=== PATIENT | female | born 1955 | race Caucasian/White ===

== ENCOUNTER 2016-07-02 13:30 | Inpatient (IN) | payer OTHER ==
[2016-07-02] MEDS ORDERED: ATIVAN IM ONE (13:44)
[2016-07-02] MEDS ORDERED: BENADRYL IM ONE (13:44)
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
[2016-07-02] MEDS ORDERED: HALDOL ONE (14:27)
[2016-07-02] MEDS ORDERED: HALDOL IM ONE (14:30)
[2016-07-02 14:50] LABS: MANUAL DIFF NEEDED? NO
[2016-07-02 14:55] LABS: BASO% 0.2 % (0.0-0.8); EOS# 0.01 X1000 (0.0-0.7); EOS% 0.2 % (0.0-10.0); HEMATOCRIT 42.1 % (37.0-47.0); HEMOGLOBIN 15.2 g/dL (12.0-16.0); IMM GRAN# 0.01 X1000 (0.0-0.04); IMM GRAN% 0.2 % (0.0-0.5); LYMPH# 1.04 X1000 (1.2-3.4); LYMPH% 19.6 % (20.5-51.1); MCHC 36.1 g/dL (33-37); MCV 85.9 FL (81-99); MONO# 0.47 X1000 (0.11-0.59); MONO% 8.9 % (1.7-9.3); NEUT% 70.9 % (42.2-75.2); PLT 156 X1000 (130-400)
[2016-07-02 15:19] LABS: AGAP 12; ALBUMIN 4.2 g/dL (3.5-5.0); ALKALINE PHOSPHATASE 119 U/L (32-104); BUN 3 mg/dL (8-22); CALCIUM 9.5 mg/dL (8.8-10.2); CHLORIDE 93 mmol/L (98-107); CK PROFILE 117 U/L (24-173); COSMO 253; GOT 42 U/L (10-30); GPT 39 U/L (10-36); POTASSIUM 3.4 mmol/L (3.5-5.1); SODIUM 127 mmol/L (136-145); TCO2 22 mmol/L (25-35); TOTAL PROTEIN 6.3 g/dL (6.3-8.3)
[2016-07-02 15:23] LABS: INR 0.99 (0.86-1.15); PROTIME 13.4 Seconds (12.1-15.5)
[2016-07-02 15:24] LABS: PTT PL 26.9 Seconds (22.6-43.9)
--- NOTE | 2016-07-02 15:51 | Diag Imaging Result Document ---
PROCEDURE NAME: HEAD W/O CONTRAST - 07/02/2016 CT HEAD WITHOUT CONTRAST: COMPARISON: None available. FINDINGS: There is extensive patchy low attenuation in the periventricular and subcortical white matter suggesting advanced microangiopathy. There is extensive right temporal lobe encephalomalacia. There is no definite acute infarct given the limited sensitivity of CT versus MRI. There is no discrete intracranial mass, mass effect, or intracranial hemorrhage. Surrounding soft tissues and bony structures are essentially unremarkable. IMPRESSION: Extensive chronic changes as described, but no definite acute intracranial pathology.
--- NOTE | 2016-07-02 16:12 | Diag Imaging Result Document ---
PROCEDURE NAME: CHEST-1 VIEW - 07/02/2016 SINGLE FRONTAL RADIOGRAPH THE GRAPH OF THE CHEST: COMPARISON: 07/12/2014. FINDINGS: The lungs are hyperinflated, stable. Increased interstitial markings, especially on the right at the upper lung zones are stable suggesting fibrosis. The lungs are grossly clear otherwise. There is no definite pleural fluid collection. Cardiac silhouette is probably within normal limits accounting for magnification due to AP technique. IMPRESSION: Stable COPD changes and right lung fibrosis as described.
[2016-07-02 17:27] LABS: URINE CULTURE PL NEEDED? NO; URINE SOURCE CLEAN CATCH
[2016-07-02 17:40] LABS: UR AMPHETAMINES QUAL NONE DETECTED (NONE DETECT); UR BARBITUATES QUAL NONE DETECTED (NONE DETECT); UR BENZODIAZEPIN QUAL NONE DETECTED (NONE DETECT); UR CANNABINOIDS QUAL NONE DETECTED (NONE DETECT); UR COCAINE QUAL NONE DETECTED (NONE DETECT); UR MDMA QUAL NONE DETECTED (NONE DETECT); UR METHADONE QUAL NONE DETECTED (NONE DETECT); UR METHAMPHETAMINE QUAL NONE DETECTED (NONE DETECT); UR OPIATES QUAL NONE DETECTED (NONE DETECT); UR OXYCODONE QUAL NONE DETECTED (NONE DETECT); UR PCP QUAL NONE DETECTED (NONE DETECT); UR TCA QUAL NONE DETECTED (NONE DETECT)
[2016-07-02 17:42] LABS: BILIRUBIN URINE NEGATIVE (NEGATIVE); BLOOD URINE NEGATIVE (NEGATIVE); CLARITY CLEAR (CLEAR); COLOR YELLOW; GLUCOSE URINE NEGATIVE (NEGATIVE); LEUKOCYTES URINE NEGATIVE (NEGATIVE); NITRITE URINE NEGATIVE (NEGATIVE); PROTEIN URINE NEGATIVE (NEGATIVE); SP GRAVITY URINE 1.005; UROBILINOGEN URINE NORMAL
[2016-07-02 17:52] LABS: URINE CAST NONE SEEN /LPF; URINE CRYSTAL NONE SEEN /HPF; URINE EPITHELIAL CELLS <10 /HPF (<10)
[2016-07-02] MEDS ORDERED: LOPRESSOR IV ONE (18:05)
[2016-07-02] MEDS ORDERED: APRESOLINE IV ONE (20:34)
[2016-07-02] MEDS ORDERED: FLUZONE QUAD 2016-2017 SYRINGE IM ONE (22:19)
[2016-07-02] MEDS ORDERED: PNEUMOVAX 23 IM ONE (22:21)
[2016-07-02] MEDS ORDERED: ZOFRAN IV PRN (23:45)
[2016-07-02] MEDS ORDERED: TYLENOL PO PRN (23:45)
[2016-07-03] MEDS: NS 1,000 ML IV SCH ×2 (00:24→16:09)
[2016-07-03 06:31] LABS: HEMATOCRIT 40.9 % (37.0-47.0); HEMOGLOBIN 14.7 g/dL (12.0-16.0); MCH 31.2 PG (27-31); MCHC 35.9 g/dL (33-37); MCV 86.8 FL (81-99); MPV 11.5 FL (7.4-10.4); RBC 4.71 XMIL (4.2-5.4)
[2016-07-03 06:55] LABS: AGAP 12; ALBUMIN 3.8 g/dL (3.5-5.0); ALKALINE PHOSPHATASE 115 U/L (32-104); BUN 3 mg/dL (8-22); CALCIUM 9.2 mg/dL (8.8-10.2); CHLORIDE 96 mmol/L (98-107); COSMO 256; GOT 45 U/L (10-30); GPT 42 U/L (10-36); POTASSIUM 3.5 mmol/L (3.5-5.1); SODIUM 129 mmol/L (136-145); TCO2 21 mmol/L (25-35); TOTAL PROTEIN 5.8 g/dL (6.3-8.3)
[2016-07-03] MEDS: ATIVAN IV PRN (12:54)
--- NOTE | 2016-07-03 15:35 | Diag Imaging Result Document ---
PROCEDURE NAME: MRI BRAIN W/O CONTRAST - 07/03/2016 MRI BRAIN WITHOUT CONTRAST: TECHNIQUE: Exam consists of T2-weighted fast spin echo images and inverted recovery images. According to the technologist, the exam could not be completed because the patient was unable or unwilling to cooperate. COMPARISON: No comparison MRI brain is available. Exam is correlated with the 07/02/2016 CT head. FINDINGS: There is an area of restricted diffusion which involves the temporal lobe, including the sylvian cortex, and part of the nearby parietal lobe on the left. This is compatible with acute infarct. There is encephalomalacia at the right temporal lobe and adjacent right occipital lobe as seen on the recent CT, compatible with older (chronic or late subacute) infarct. 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 MTDD
[2016-07-03] MEDS: STERILE WATER INJ. INJ PRN (16:09)
[2016-07-03] MEDS: GEODON IM PRN (16:09)
[2016-07-03] MEDS: ASPIRIN PR SCH (18:05)
--- NOTE | 2016-07-03 19:05 | HISTORY AND PHYSICAL ---
CHIEF COMPLAINT: Altered mentation. HISTORY OF PRESENT ILLNESS: This is a 61-year-old female with history of significant dementia presenting with an acute change in behavior. She was having difficulty walking, leaning towards the left. She had overdosed on Xanax in the past I do not think intentionally just because of memory loss and taking too much medication that she forgot she had already taken. When she came the ER she was very agitated. She is ambulatory. Her neurological exam was nonfocal. This apparently started earlier that days so by the time she was evaluated I think she was outside the window for tPA. Head CT, rest of her workup was really unremarkable but she was admitted for further treatment and management. PAST MEDICAL HISTORY: Dementia. No other significant issues. Information is gleaned from the chart and patient's daughter. I could not get any objective information from the patient herself. PAST SURGICAL HISTORY: I do not think she had any major contributors here. ALLERGIES: No known drug allergies. OTHER HISTORY: Smoker. She does smoke a pack a day. Reportedly has had CVAs in the past. Cervical cancer status post D and C and LEEP. She has had an MRSA infection of the lungs. FAMILY HISTORY: Unobtainable. SOCIAL HISTORY: Again, pack a day smoker. MEDICATIONS: None is listed. REVIEW OF SYSTEMS: Unobtainable. PHYSICAL EXAMINATION: VITAL SIGNS: Blood pressure was 168/102, heart rate 68, respiratory 17, temperature 98.2 degrees, 99% on room air. GENERAL: A well-developed female in no acute distress. HEENT: Head exam was normocephalic, atraumatic. Pupils equal, round, reactive to light. Extraocular movements were intact. Ear/nose/throat exam she had moist mucous membranes. NECK: Supple. CARDIOVASCULAR EXAM: Stable. PULMONARY: Bilateral breath sounds. Clear to auscultation. GI: Soft, nontender, nondistended. Bowel sounds are positive. EXTREMITIES: No clubbing or cyanosis. LYMPHATICS: No peripheral edema. NEUROLOGICAL: Nonfocal. LABORATORY DATA: Normal CBC, normal coagulations. She did have a low sodium 127. AST and ALT of 42, 39, platelets of 119,000. PROBLEM LIST: 1. Altered mental status secondary to transient ischemic attack versus cerebrovascular accident versus metabolic encephalopathy. We will continue screens. Family is very concerned for stroke. Apparently she has had a history of stroke previously. She has a nonfocal exam but she is not participating exam very much. She does have ataxia and some left-sided weakness so we will go ahead and pursue MRI when available. Continue hydration and monitor clinically. 2. Hyponatremia. Will continue normal saline supplementation, check urine electrolytes and follow. DISPOSITION: Pending improvement in the rest of her clinical status.
[2016-07-04] MEDS: LIPITOR PO SCH ×2 (03:27→20:00)
[2016-07-04] MEDS: NS 1,000 ML IV SCH ×3 (06:33→19:58)
--- NOTE | 2016-07-04 06:37 | EKG Report ---
Test Performed on : 07/04/2016 06:25:17 AM Test Reason : EKG changes; SVT Blood Pressure : / mmHG Vent. Rate : 105 BPM Atrial Rate : 105 BPM P-R Int : 144 ms QRS Dur : 072 ms QT Int : 360 ms P-R-T Axes : 071 067 071 degrees QTc Int : 475 ms Sinus tachycardia. Left ventricular hypertrophy with repolarization abnormality Abnormal ECG When compared with ECG of 13-JUL-2014 06:10, ST now depressed in Anterior leads Confirmed by Jono Varela MD ([id number]) on 07/08/2016 9:04:09 PM
[2016-07-04 06:54] LABS: HEMATOCRIT 44.1 % (37.0-47.0); HEMOGLOBIN 15.7 g/dL (12.0-16.0); MCH 30.9 PG (27-31); MCHC 35.6 g/dL (33-37); MCV 86.8 FL (81-99); MPV 11.3 FL (7.4-10.4); RBC 5.08 XMIL (4.2-5.4)
[2016-07-04 07:01] LABS: AGAP 16; BUN 3 mg/dL (8-22); CHLORIDE 98 mmol/L (98-107); COSMO 262; HDL 88 mg/dL (45-65); LDL 53 mg/dL; POTASSIUM 3.1 mmol/L (3.5-5.1); SODIUM 132 mmol/L (136-145); TCO2 18 mmol/L (25-35); TRIGLYCERIDES 52 mg/dL (35-135); VLDL 10 mg/dL
[2016-07-04] MEDS: GEODON IM PRN ×2 (07:43→22:13)
[2016-07-04] MEDS: STERILE WATER INJ. INJ PRN (07:43)
[2016-07-04] MEDS ORDERED: LABETALOL IV PRN (08:21)
[2016-07-04] MEDS ORDERED: LABETALOL IV ONE (08:21)
[2016-07-04] MEDS ORDERED: LABETALOL ONE (08:26)
[2016-07-04] MEDS ORDERED: CARDIZEM ONE (08:45)
[2016-07-04 09:00] LABS: BE -1.8 mmoll (-3.0-3.0); BLOOD TYPE ARTERIAL; METHB 1.5 % (0.0-1.5); O2(CT) 22.4 mL/dL (15.0-23.0); PCO2(98.6) 31 mmHg (35-45); PO2(98.6) 85 mmHg (60-100); SAMPLE BLOOD; SAO2 97.5 % (95.0-100.0); pH(98.6) 7.44 (7.35-7.45)
[2016-07-04] MEDS: CARDIZEM 100 MG/NS 100 ML IV SCH (09:25)
--- NOTE | 2016-07-04 09:25 | Diag Imaging Result Document ---
PROCEDURE NAME: CHEST-PORTABLE - 07/04/2016 SINGLE FRONTAL RADIOGRAPH OF THE CHEST: COMPARISON: 07/02/2016. FINDINGS: There is stable COPD change and fibrosis at the right upper lung zone. There has been interval development of a focal infiltrate at the medial right lung base suggesting developing pneumonia, most likely. No new consolidation is identified on the left. Cardiac silhouette is stable. IMPRESSION: Interval development of a focal infiltrate at the medial right lung base.
--- NOTE | 2016-07-04 09:42 | EKG Report ---
Test Performed on : 07/04/2016 08:40:59 AM Test Reason : cp Blood Pressure : / mmHG Vent. Rate : 138 BPM Atrial Rate : 153 BPM P-R Int : 000 ms QRS Dur : 092 ms QT Int : 342 ms P-R-T Axes : 000 080 -59 degrees QTc Int : 518 ms Atrial fibrillation. with rapid ventricular response. Minimal voltage criteria for LVH, may be normal variant ST & T wave abnormality, consider inferior ischemia Abnormal ECG When compared with ECG of 04-JUL-2016 06:25, (Unconfirmed) Atrial fibrillation. has replaced Sinus rhythm. ST now depressed in Inferior leads ST now depressed in Lateral leads Inverted T waves have replaced nonspecific T wave abnormality in Inferior leads T wave inversion now evident in Lateral leads Confirmed by Jono Varela MD ([id number]) on 07/08/2016 9:03:58 PM
[2016-07-04] MEDS: ASPIRIN PR SCH (10:30)
[2016-07-04 11:12] LABS: DRAW SITE R RADIAL; MODALITY CANNULA
[2016-07-04 11:13] LABS: ALLEN TEST YES
[2016-07-04] MEDS: POTASSIUM CHLORIDE 20 MEQ/SWI 100 ML IV SCH ×2 (11:31→13:50)
[2016-07-04] MEDS: FLAGYL 500 MG/NS 100 ML IV SCH ×2 (11:31→19:59)
--- NOTE | 2016-07-04 12:18 | PROGRESS NOTE ---
DATE: 07/04/2016 SUBJECTIVE: Patient resting quietly in bed. Telemetry showed this a.m. a rate change. She went from being in normal sinus rhythm in the 70s to being elevated in the 140s and 150s. Obtained an EKG that showed atrial fibrillation with RVR. OBJECTIVE: Vital signs: Temp 98.6, pulse 146, respirations 47, blood pressure 159/86, satting 95% on room air. General: This is a 61-year-old female who is lying in the bed. HEENT: Normocephalic, atraumatic. The pupils are equal, round and reactive to light. The extraocular movements are intact. Oropharynx and nares are clear. Neck: Supple. Lungs: Clear to auscultation bilaterally with equal lung expansion and chest wall movement. Heart: Irregular rate and rhythm. No murmurs, rubs, or gallops. Abdomen: Soft, nontender, nondistended. Bowel sounds are present in all 4 quadrants. Extremities: No clubbing, cyanosis, or edema. Neurological: Cranial nerves 2-12 appear grossly intact. LABORATORY DATA: White blood cell count of 12.95, hemoglobin 15.7, hematocrit 44.1, platelets 150. Sodium 132, potassium 3.1, chloride 98, CO2 of 18, BUN 3 with a creatinine of 0.4, glucose of 122. Triglycerides are 52, cholesterol 151. B12 of 553. IMAGING: Chest x-ray this a.m. showed interval development of a focal infiltrate at the medial right lung base. ASSESSMENT AND PLAN: 1. Atrial fibrillation with RVR, new onset. 2. Right lower lobe pneumonia. 3. Hypokalemia. 4. Hyponatremia. 5. Altered mental status most likely related to an acute temporoparietal infarct on the left. 6. Cerebrovascular accident, acute temporoparietal infarct on the left. PLAN: She was transferred to the intensive care unit, placed on a Cardizem drip. Prior to being transferred, she was given 20 mg of labetalol IV x1 and Cardizem 10 mg IV x1 with little change in her heart rate, so she was transferred back to the unit, placed on the Cardizem drip, normal saline at 75 mL/h. Will obtain a carotid ultrasound. We will do her carotid and echocardiogram in the a.m. We will place her on Levaquin 500 mg IV q.24 h., first dose this morning then will recheck CBC, CMP in the a.m. Attempted to notify family, no answer. I left a message for the patient's daughter to return my call so that I could inform them of these changes in her status. Awaiting that return phone call. Dictated by FRANCIE Mo for Josias Gonzales MD pt examined , agree with above, acute ischemic CVA, likely secondary to PAF, on cardizem and controlled, will need group home anitcoagulation, may have left atrial thrombus, I think the risk of further CVA is higher than risk of hemorrahgic conversion ; but will discuss cardiology and neurology and evaluate, further, we will do dvt prophylaxis , > 30 minute critical care time, afib with rvr, on iv cardizem JADE , MTDD
[2016-07-04] MEDS: LEVAQUIN 500 MG/D5W 100 ML IV SCH (12:30)
[2016-07-04] MEDS ORDERED: HEPARIN 25,000 UNITS/D5W 250 ML IV SCH (13:15)
[2016-07-04] MEDS: LOVENOX SUBQ SCH (14:35)
--- NOTE | 2016-07-04 15:08 | CONSULTATION ---
DATE OF CONSULTATION: 07/04/2016 REASON FOR CONSULTATION: Cardiology was consulted for atrial fibrillation. HISTORY OF PRESENT ILLNESS: Ms. Rodriguez is a 61-year-old lady with significant dementia. She was brought to the emergency room, was agitated, and she had a head CT and MRI done. Also she had difficulty walking and leaning towards the left as well. History could not be obtained from the patient. History was obtained from the chart and I talked to her son as well. PAST MEDICAL HISTORY: Dementia. No obvious other medical problems reported. She is a smoker, a pack of cigarettes a day. History of CVA in the past. REVIEW OF SYSTEMS: Could not be obtained. SOCIAL HISTORY: A pack of cigarettes daily. PHYSICAL EXAMINATION: Vital Signs: Blood pressure was 130/80. Cardiovascular: First and second heart sounds were heard. There was no S3 gallop. Respiratory: Expiratory wheeze. Abdomen: Soft, nontender. There was no guarding or rigidity. Bowel sounds were heard. Central nervous system: Could not be assessed. Detailed central nervous system examination not performed. LABORATORY EXAMINATION: WBC 12.9, hemoglobin 15.7, hematocrit 44, platelet count of 150,000. Sodium 132, potassium 3.1, BUN 3, creatinine 0.8. The patient is in atrial fibrillation. Cardiac enzymes negative. IMAGING: Brain MRI revealed acute temporoparietal infarct of the left side. Chest x-ray revealed focal infiltrate at the mid right base. ASSESSMENT AND PLAN: 1. Ms. Elayne Rodriguez is a 61-year-old lady with history of dementia, difficulty in walking, and altered mental status. Was noted to have acute cerebrovascular accident. 2. She also has elevated white count and pneumonia. 3. She was noted to be in atrial fibrillation and started on a Cardizem drip. Currently patient cannot swallow. She has paroxysmal atrial fibrillation that could be accounting for her embolic stroke. I would recommend anticoagulating patient when it is okayed with Neurology. Would recommend Eliquis 5 mg twice daily or Xarelto 20 mg a day. 4. We will get an echocardiogram to assess cardiac and valvular function. 5. For antibiotics, she is on antibiotics given her pneumonia. 6. Her potassium is 3.1. Would recommend repleting potassium. 7. Once she can take p.o. tablets we will change her from IV Cardizem to p.o. medication. 8. For dementia she is on Geodon. I have not made any other changes to her medication. Thank you for the consult.
--- NOTE | 2016-07-04 17:54 | EKG Report ---
Test Performed on : 07/04/2016 5:22:16 PM Test Reason : converted to SR from A Fib Blood Pressure : / mmHG Vent. Rate : 083 BPM Atrial Rate : 083 BPM P-R Int : 120 ms QRS Dur : 088 ms QT Int : 420 ms P-R-T Axes : 078 071 049 degrees QTc Int : 493 ms Sinus rhythm. with premature atrial complexes. Left ventricular hypertrophy with repolarization abnormality Prolonged QT Abnormal ECG When compared with ECG of 04-JUL-2016 17:19, (Unconfirmed) premature atrial complexes. are now present Unconfirmed Result
[2016-07-04] MEDS: ATIVAN IV PRN (18:07)
[2016-07-04] MEDS: CLINIMIX E 4.25%-5% SOLUTION 1,000 ML IV SCH (20:56)
[2016-07-04] MEDS ORDERED: APRESOLINE IV PRN (22:35)
[2016-07-04] MEDS ORDERED: MORPHINE IV PRN (22:35)
[2016-07-05] MEDS: ATIVAN IV PRN (00:21)
[2016-07-05] MEDS: FLAGYL 500 MG/NS 100 ML IV SCH ×3 (01:19→18:05)
[2016-07-05] MEDS: XOPENEX NEB INH PRN ×4 (03:29→19:18)
[2016-07-05 05:47] LABS: URINE SOURCE CATH
[2016-07-05 06:02] LABS: BILIRUBIN URINE NEGATIVE (NEGATIVE); BLOOD URINE 2+ (NEGATIVE); CLARITY CLEAR (CLEAR); COLOR YELLOW; LEUKOCYTES URINE 1+ (NEGATIVE); NITRITE URINE NEGATIVE (NEGATIVE); PROTEIN URINE TRACE mg/dL (NEGATIVE); SP GRAVITY URINE 1.015
[2016-07-05 06:05] LABS: URINE EPITHELIAL CELLS <10 /HPF (<10); URINE RBC <10 /HPF (<10); URINE WBC <10 /HPF (<10)
[2016-07-05 06:06] LABS: URINE CULTURE PL NEEDED? YES
[2016-07-05 06:07] LABS: MANUAL DIFF NEEDED? NO
[2016-07-05 06:17] LABS: UROBILINOGEN URINE 3+(8 mg/dL)
[2016-07-05 06:21] LABS: BASO% 0.2 % (0.0-0.8); HEMATOCRIT 42.9 % (37.0-47.0); HEMOGLOBIN 15.2 g/dL (12.0-16.0); IMM GRAN# 0.04 X1000 (0.0-0.04); IMM GRAN% 0.2 % (0.0-0.5); LYMPH# 0.87 X1000 (1.2-3.4); LYMPH% 5.2 % (20.5-51.1); MCH 30.8 PG (27-31); MCHC 35.4 g/dL (33-37); MCV 86.8 FL (81-99); MONO# 1.79 X1000 (0.11-0.59); MONO% 10.7 % (1.7-9.3); NEUT% 83.7 % (42.2-75.2); PLT 126 X1000 (130-400); RBC 4.94 XMIL (4.2-5.4)
[2016-07-05 06:39] LABS: AGAP 12; ALBUMIN 3.1 g/dL (3.5-5.0); ALKALINE PHOSPHATASE 101 U/L (32-104); BUN 8 mg/dL (8-22); CALCIUM 8.8 mg/dL (8.8-10.2); CHLORIDE 93 mmol/L (98-107); COSMO 251; GOT 15 U/L (10-30); GPT 22 U/L (10-36); SODIUM 124 mmol/L (136-145); TCO2 19 mmol/L (25-35); TOTAL PROTEIN 5.6 g/dL (6.3-8.3)
--- NOTE | 2016-07-05 08:46 | Diag Imaging Result Document ---
PROCEDURE NAME: HEAD W/O CONTRAST - 07/05/2016 CT HEAD WITHOUT CONTRAST: COMPARISON: 07/02/2016. FINDINGS: There is a large acute to early subacute infarct involving the left MCA distribution. It affects mainly the left temporal lobe and left frontal lobe. There is probably some involvement of the left parietal lobe as well. This cannot be seen on the previous CT. There is stable extensive encephalomalacia in the right temporal lobe MCA distribution. There is extensive white matter microangiopathy. There is no evidence of intracranial hemorrhage, mass, or significant mass effect. Surrounding soft tissues and bony structures are essentially unremarkable. IMPRESSION: 1. Interval development of a large left MCA distribution acute to early subacute infarct. 2. Other stable chronic changes as detailed above. 3. Not mentioned above, this infarct was also seen on a previous MRI dated 07/03. [facility]
[2016-07-05] MEDS ORDERED: TYLENOL PR PRN (10:42)
[2016-07-05] MEDS: CLINIMIX E 4.25%-5% SOLUTION 1,000 ML IV SCH ×2 (10:49→11:24)
[2016-07-05] MEDS: ASPIRIN PR SCH (10:49)
[2016-07-05] MEDS: NS 1,000 ML IV SCH ×2 (10:50→20:48)
[2016-07-05] MEDS ORDERED: APRESOLINE IV PRN (11:08)
[2016-07-05] MEDS: LEVAQUIN 500 MG/D5W 100 ML IV SCH (11:30)
[2016-07-05] MEDS: NICODERM PATCH TD PRN (11:40)
[2016-07-05] MEDS ORDERED: MAGNESIUM SULFATE 2 GM/S.W.I. 50 ML IV ONE (12:05)
--- NOTE | 2016-07-05 13:27 | Diag Imaging Result Document ---
PROCEDURE NAME: CHEST-PORTABLE - 07/05/2016 SINGLE FRONTAL RADIOGRAPH OF THE CHEST: COMPARISON: 07/04/2016. FINDINGS: There is interval worsening of the infiltrate at the right lung base. No new consolidations are identified otherwise. Cardiac silhouette is stable. IMPRESSION: Interval modest worsening of the right basilar infiltrate.
[2016-07-05] MEDS: PROTONIX IV SCH (14:38)
[2016-07-05] MEDS: POTASSIUM CHLORIDE 20 MEQ/SWI 100 ML IV SCH ×2 (14:46→16:50)
[2016-07-05] MEDS: LOVENOX SUBQ SCH (14:47)
[2016-07-05] MEDS: NEO-SYNEPHRINE 50 MG in NS 250 ML IV SCH (15:53)
--- NOTE | 2016-07-05 20:27 | Extremity Venous Study ---
PROCEDURE NAME: Carotid Ultrasound - 07/04/2016 CAROTID DOPPLER: COMPARISON: None available. FINDINGS: RIGHT: There is intimal thickening throughout the right carotid system with fairly extensive atherosclerotic patchy plaque with calcification. This is most significant at the carotid bulb and proximal ICA. The peak systolic velocity measures 104, 89, 99, 74, 75, and 87 cm/sec at the CCA, bifurcation, proximal ICA, mid ICA, distal ICA, and ECA, respectively. There is antegrade flow in the vertebral artery. The carotid ratio is 0.95. LEFT: There is extensive intimal thickening and patchy atherosclerotic disease throughout the entire left carotid system with multiple regions of calcification. It is probably worst at the proximal ICA. The peak systolic velocity measures 109, 100, 115, 144, 69, and 105 cm/sec at the CCA, bifurcation, proximal ICA, mid ICA, distal ICA, and ECA, respectively. There is antegrade flow in the vertebral artery. The carotid ratio is 1.33. IMPRESSION: Extensive atherosclerotic disease throughout both carotid systems on grayscale images. However, by Doppler, there are elevated velocities only in the proximal ICA and mid ICA suggesting a stenosis of between 40 and 59%. Consider a CTA of the neck for more accurate estimation of stenosis if not contraindicated. [facility]
[2016-07-05] MEDS: LIPITOR PO SCH (20:36)
[2016-07-06] MEDS: POTASSIUM CHLORIDE 20 MEQ/SWI 100 ML IV SCH ×2 (00:16→02:08)
[2016-07-06] MEDS: FLAGYL 500 MG/NS 100 ML IV SCH ×3 (01:48→17:31)
[2016-07-06] MEDS: CLINIMIX E 4.25%-5% SOLUTION 1,000 ML IV SCH ×3 (03:14→21:23)
[2016-07-06 05:14] LABS: BE -3.1 mmoll (-3.0-3.0); BLOOD TYPE ARTERIAL; DRAW SITE R RADIAL; METHB 1.5 % (0.0-1.5); O2(CT) 20.5 mL/dL (15.0-23.0); PCO2(98.6) 30 mmHg (35-45); PO2(98.6) 80 mmHg (60-100); SAMPLE BLOOD; SAO2 97.1 % (95.0-100.0); THB 15.6 g/dL (11.5-17.4); pH(98.6) 7.43 (7.35-7.45)
[2016-07-06 05:18] LABS: ALLEN TEST YES; MODALITY CANNULA
[2016-07-06 06:24] LABS: AGAP 10; BUN 8 mg/dL (8-22); CALCIUM 8.6 mg/dL (8.8-10.2); CHLORIDE 98 mmol/L (98-107); COSMO 253; POTASSIUM 3.9 mmol/L (3.5-5.1); SODIUM 126 mmol/L (136-145); TCO2 18 mmol/L (25-35)
[2016-07-06 06:29] LABS: HEMATOCRIT 43.3 % (37.0-47.0); HEMOGLOBIN 15.2 g/dL (12.0-16.0); MCH 30.3 PG (27-31); MCHC 35.1 g/dL (33-37); MCV 86.3 FL (81-99); MPV 11.8 FL (7.4-10.4); RBC 5.02 XMIL (4.2-5.4)
--- NOTE | 2016-07-06 06:50 | Diag Imaging Result Document ---
PROCEDURE NAME: CHEST-PORTABLE - 07/06/2016 PORTABLE CHEST: COMPARISON: Compared to 07/05/2016. FINDINGS: The lungs are well expanded. The heart is not enlarged. Minimal improvement in the right basilar infiltrate. Increased markings in the right apex may be fibrosis. No pleural effusions identified. IMPRESSION: Interval improvement in the right basilar infiltrate.
[2016-07-06] MEDS: XOPENEX NEB INH PRN ×2 (08:33→16:23)
--- NOTE | 2016-07-06 09:28 | CONSULTATION ---
DATE OF CONSULTATION: 07/06/2016 HISTORY: Ms. Rodriguez is 61 years old, admitted with 2nd stroke, obtunded over the weekend and brighter today. She is not able to provide history because of inattention and dysphasia. History is taken from review of the hospital record and telephone discussion with Dr. Gonzales yesterday. She had a history of stroke in the past causing left hemianopia. Family had reported no other definite deficit remaining after that event. Previous hospital notes describe her as being demented at baseline. I do not see history of head injury or seizure in recent notes but previous notes indicate history of seizure. She apparently had abrupt onset of neurologic change several days ago. She was admitted to the hospital three days ago. She had some unsteady gait and trouble with communication. Initial noncontrast CT showed old right hemisphere encephalomalacia. Subsequent brain MRI showed evidence of acute left occipitoparietal infarction in addition to the old right hemisphere changes. When she became obtunded over the weekend, noncontrast CT showed no evidence of bleeding and did show the acute left hemisphere infarction. Labs showed hyponatremia. WBC count has been elevated. She had recent fever and chest x-ray evidence of infiltrate. Computer medicine records show she had a dose of lorazepam and morphine within a day or so of her becoming obtunded. There is mention in previous notes that she may have used benzodiazepines in the past, so I doubt the single lorazepam dose caused much alteration of consciousness. I do not know about previous opiate use. Urine drug screen was all negative this admission. She was not taking home medicines, by report. She continues to smoke cigarettes. I believe there is history of ethanol use in the past but not certain about recent use. She became quite obtunded over the weekend but later in the day yesterday, was less so. This morning, she seems to be awake. On exam, she is supine, moving all limbs, moving the left leg more than the right. During my time at the bedside, moving the right arm a little more vigorously than the left. She was awake and seemed alert but not attentive. She did not follow commands. She did not communicate. She did not fix her gaze on me or attempt to respond verbally. There was some mumbling but no understandable words. She has a left gaze preference but full lateral eye movement with passive head turning. She resists passive eye opening of the left eye more vigorously than the right. Corneal reflexes are present bilaterally. Both pupils are round and react to bright light. Head is unremarkable. Neck is supple without meningismus. Plantar response is extensor bilaterally. IMPRESSION: 1. Recent dominant left hemisphere infarction, likely presentation with dysphasia and very little motor deficit. She has risk factors including hypertension, cigarette smoking, possibly dyslipidemia reported in old notes. Big risk factor also would be previous stroke. 2. Previous nondominant right hemisphere infarction with residual hemianopia and apparently no significant motor deficit. 3. Reported cognitive impairment at baseline. This would predispose her to encephalopathy with any toxic or metabolic disturbance. 4. I do not see evidence of increased intracranial pressure. Yesterday, there was concern for cerebral edema, mass effect, brainstem compression but there is no evidence of brainstem dysfunction on clinical examination now and she has recovered her alertness. It is too soon to try to establish prognosis but I am concerned she may have residual global dysphasia and she may now be cortically blind bilaterally. Time will tell. 5. I do not have any urgent suggestion. I hope she will continue to improve clinically with attention to her metabolic problems and pneumonia. I would maintain blood pressure as you are doing. We might need followup imaging later, but that is not urgent. There is reported history of seizure in the past and, if that history is accurate, we might consider electroencephalogram, particularly if she has more altered consciousness or fluctuating awareness. Thanks for asking me to see Ms. Rodriguez. [facility]
[2016-07-06] MEDS: CARDIZEM 100 MG/NS 100 ML IV SCH ×2 (10:12→16:10)
[2016-07-06] MEDS: ASPIRIN PR SCH (10:12)
[2016-07-06] MEDS: NS 1,000 ML IV SCH ×2 (10:16→21:24)
[2016-07-06] MEDS: PROTONIX IV SCH (12:12)
[2016-07-06] MEDS: LEVAQUIN 500 MG/D5W 100 ML IV SCH (12:15)
[2016-07-06] MEDS: LANOXIN IV SCH ×2 (12:16→17:31)
[2016-07-06] MEDS: LOVENOX SUBQ SCH (13:30)
--- NOTE | 2016-07-06 15:15 | ECHO REPORT ---
ORDER DATE: 07/04/2016 ECHOCARDIOGRAPHIC MEASUREMENTS: 1. Interventricular septum 0.7. Left ventricular posterior wall 0.7. Diastolic diameter 5.1. Left atrium 3.6. Aorta 3.1. 2. Mitral valve was normal. 3. Tricuspid valve was normal. 4. Aortic valve leaflets are trileaflet. 5. Pulmonic valve was normal. 6. Normal left ventricular cavity size. Estimated ejection fraction of 65%. 7. There is borderline left atrial enlargement. 8. There is trace to mild mitral regurgitation. Trace tricuspid regurgitation. Peak velocity across the tricuspid valve was 2.6 m/sec. Pulmonary artery systolic pressure of 37 mmHg. There is no aortic stenosis or regurgitation by Doppler studies. 9. There is no pericardial effusion or obvious intracardiac mass or thrombus seen.
--- NOTE | 2016-07-06 18:07 | PROGRESS NOTE ---
DATE: 07/06/2016 CHIEF COMPLAINT: Weakness of the right side of the body, unable to talk, and irregular heartbeat. SUBJECTIVE: Ms. Jennifer arnold. She is awake. Her gaze is shifted to the left. She is trying to climb out of bed moving her left arm and leg. She does not really follow commands. OBJECTIVE: Vital signs: Today blood pressure is 175/80, temperature 99.1, pulse 86, it has been fluctuating up to 115, respirations 20. General: She does not follow commands. She moves the left side. Gaze shifted to the left. Chest: Fairly clear to auscultation and percussion. Cardiovascular: Heart sounds are irregularly irregular. Abdomen: Soft. Extremities: Decreased pulses. There is weakness on the right side of her body. LABORATORY DATA: White count 13,000, hemoglobin 15.2, hematocrit 43.3. Sodium 126, potassium 3.9, BUN 8, creatinine 0.3. IMPRESSION: 1. Patient who has suffered a large left middle cerebral artery stroke. 2. Paroxysmal atrial fibrillation. 3. History of dementia. RECOMMENDATIONS: At this point in time, the patient will continue present doses of IV digoxin and diltiazem. Her prognosis is really not that good because of the type of stroke that she has had. We will follow her along. Thank you for the opportunity to participate in her evaluation.
[2016-07-06] MEDS: LIPITOR PO SCH (21:24)
[2016-07-07] MEDS: FLAGYL 500 MG/NS 100 ML IV SCH ×3 (01:43→20:43)
[2016-07-07] MEDS: NEO-SYNEPHRINE 50 MG in NS 250 ML IV SCH (02:20)
[2016-07-07] MEDS: CLINIMIX E 4.25%-5% SOLUTION 1,000 ML IV SCH (02:52)
[2016-07-07 06:10] LABS: HEMATOCRIT 45.9 % (37.0-47.0); HEMOGLOBIN 16.2 g/dL (12.0-16.0); MCH 30.3 PG (27-31); MCHC 35.3 g/dL (33-37); MPV 11.6 FL (7.4-10.4); RBC 5.34 XMIL (4.2-5.4)
[2016-07-07 07:45] LABS: AGAP 14; BUN 7 mg/dL (8-22); CALCIUM 9.1 mg/dL (8.8-10.2); CHLORIDE 93 mmol/L (98-107); COSMO 252; MAGNESIUM 1.6 mg/dL (1.5-2.7); POTASSIUM 3.3 mmol/L (3.5-5.1); SODIUM 126 mmol/L (136-145); TCO2 20 mmol/L (25-35)
[2016-07-07] MEDS: XOPENEX NEB INH PRN (11:11)
[2016-07-07] MEDS: ASPIRIN PR SCH (11:20)
[2016-07-07] MEDS: NS 1,000 ML IV SCH (11:21)
[2016-07-07] MEDS: PROTONIX IV SCH (11:23)
[2016-07-07] MEDS: NICODERM PATCH TD PRN (11:23)
[2016-07-07] MEDS: LEVAQUIN 500 MG/D5W 100 ML IV SCH (11:23)
--- NOTE | 2016-07-07 13:13 | PROGRESS NOTE ---
DATE: 07/07/2016 SUBJECTIVE: No current family present. The patient is nonverbal. The staff denies any new issues. OBJECTIVE: Vital Signs: Temperature 98, pulse 64, respiratory rate 15, BP 193/100 to 125/64. General: Patient is lying in bed. She is in no distress. She does arouse to stimuli but does not follow commands. Speech is garbled. Cardiovascular: Irregular rhythm, rate controlled. Chest: Clear. Abdomen: Soft. Extremities: She is noted to be more weak on her right side. LABORATORY DATA: WBCs 11.5, sodium 126, potassium 3.3. ASSESSMENT: 1. Hypokalemia, replaced. 2. Mild leukocytosis, stable. 3. Large left middle cerebral artery stroke. 4. Paroxysmal atrial fibrillation. 5. Known dementia. 6. Hypotension. Patient continues to require Luis Enrique-Synephrine at night and is able to wean off during the day. PLAN: We will continue as noted. IV digoxin. Her IV Cardizem has to be turned off at night, because she develops low blood pressure has to go back on Luis Enrique-Synephrine. However, during the day, her blood pressure rises, and she is back on IV Cardizem. We will continue to follow and, therefore, will remain in the ICU.
[2016-07-07] MEDS: LOVENOX SUBQ SCH (13:30)
[2016-07-07] MEDS: LIPITOR PO SCH (20:47)
[2016-07-08] MEDS: NS 1,000 ML IV SCH ×2 (00:45→13:20)
[2016-07-08] MEDS: FLAGYL 500 MG/NS 100 ML IV SCH ×3 (02:30→17:19)
[2016-07-08] MEDS ORDERED: KLOR-CON PO ONE (06:19)
[2016-07-08] MEDS: CLINIMIX E 4.25%-5% SOLUTION 1,000 ML IV SCH ×2 (07:19→20:45)
[2016-07-08] MEDS: ASPIRIN PR SCH (09:19)
[2016-07-08] MEDS: ATIVAN IV PRN ×2 (10:47→17:25)
[2016-07-08] MEDS: LEVAQUIN 500 MG/D5W 100 ML IV SCH (10:47)
--- NOTE | 2016-07-08 11:08 | PROGRESS NOTE ---
DATE: 07/08/2016 SUBJECTIVE: Patient without new complaints. She is a little bit more awake, alert. She was trying to get out of bed yesterday. She is easily agitated and frustrated. OBJECTIVE: Vital Signs: Temperature 97, pulse 72, 137. Respiratory rate 14, blood pressure 177/98. Saturating 96% percent on 3 L. General: Patient is a well-developed female who is currently in no respiratory distress. She does not follow commands well although she is starting to attempt to follow some commands. HEENT: Normocephalic. Neck: Supple. CV: Irregular rate and irregular rhythm. Chest: Relatively clear. Abdomen: Soft. ASSESSMENT: 1. Hypertension. The patient's blood pressure is still noted to drop at night and she has to be on Luis Enrique-Synephrine although decreasing doses during the day. Her blood pressure elevates as does her heart rate when she becomes the least bit excitable and she has to start back on Cardizem. 2. Paroxysmal atrial fibrillation. 3. Dementia. 4. Recent large cerebrovascular accident in the left middle cerebral artery. 5. Hypokalemia. PLAN: We will continue patient on her current medications. We will continue physical therapy. Continue to follow her hyponatremia as well as hypokalemia and further orders as needed. She certainly will need rehab. Unfortunately, she continues to require ICU admission at this point.
[2016-07-08] MEDS: PROTONIX IV SCH (11:54)
[2016-07-08] MEDS: SODIUM CHLORIDE 0.9% INJ SCH (11:54)
[2016-07-08] MEDS: NICODERM PATCH TD PRN (13:19)
[2016-07-08] MEDS: CARDIZEM 100 MG/NS 100 ML IV SCH (13:20)
[2016-07-08] MEDS: LOVENOX SUBQ SCH (13:20)
[2016-07-08 17:24] LABS: BILIRUBIN URINE NEGATIVE (NEGATIVE); BLOOD URINE 4+ (NEGATIVE); CLARITY SL. CLOUDY (CLEAR); COLOR YELLOW; GLUCOSE URINE NEGATIVE (NEGATIVE); LEUKOCYTES URINE 1+ (NEGATIVE); NITRITE URINE NEGATIVE (NEGATIVE); PROTEIN URINE 1+(30 mg/dL) mg/dL (NEGATIVE); SP GRAVITY URINE 1.015; UROBILINOGEN URINE NORMAL
[2016-07-08 17:29] LABS: URINE CULTURE PL NEEDED? YES; URINE EPITHELIAL CELLS <10 /HPF (<10); URINE RBC TNTC /HPF (<10)
[2016-07-08 17:30] LABS: URINE SOURCE CATH
[2016-07-08] MEDS: LIPITOR PO SCH (20:58)
[2016-07-09] MEDS: NS 1,000 ML IV SCH ×3 (01:50→21:46)
[2016-07-09] MEDS: FLAGYL 500 MG/NS 100 ML IV SCH ×3 (01:50→17:36)
[2016-07-09 07:07] LABS: HEMATOCRIT 44.9 % (37.0-47.0); HEMOGLOBIN 16.1 g/dL (12.0-16.0); MCH 30.7 PG (27-31); MCHC 35.9 g/dL (33-37); MCV 85.7 FL (81-99); RBC 5.24 XMIL (4.2-5.4)
[2016-07-09 07:34] LABS: AGAP 16; ALBUMIN 3.1 g/dL (3.5-5.0); ALKALINE PHOSPHATASE 75 U/L (32-104); BUN 13 mg/dL (8-22); CALCIUM 9.1 mg/dL (8.8-10.2); CHLORIDE 98 mmol/L (98-107); COSMO 265; GOT 19 U/L (10-30); GPT 14 U/L (10-36); MAGNESIUM 1.7 mg/dL (1.5-2.7); SODIUM 132 mmol/L (136-145); TCO2 19 mmol/L (25-35); TOTAL PROTEIN 5.5 g/dL (6.3-8.3)
[2016-07-09] MEDS ORDERED: POTASSIUM CHLORIDE 20% LIQUID PO ONE (07:37)
--- NOTE | 2016-07-09 09:26 | PROGRESS NOTE ---
DATE: 07/09/2016 SUBJECTIVE: No new complaints. No family present. The nurses denied any new issues. Notes that she is easily agitated. She is nonverbal. PHYSICAL EXAMINATION: Vital Signs: Temperature 98, pulse 86-120, respiratory rate 20-24, BP 91/64 to 169/99, saturation 100% on 3 L. General: The patient is a well-developed female who is currently in no respiratory distress. She is awake, alert. Does not follow commands. Does not answer questions. HEENT: Normocephalic. Neck: Supple. CV: Irregular rate, irregular rhythm. Chest: Relatively clear. Abdomen: Soft. Extremities: No edema. Neurologic: Patient does not follow commands. She mumbles but does not have intelligible speech. She is noted to move her left upper and lower extremity quite well but minimal movement of her right. ASSESSMENT: 1. Atrial fibrillation. Continue Cardizem. 2. Hypertension. The patient's blood pressures are continuing to improve. She no longer required treatment for hypotension last night. She is on Cardizem still for her atrial fibrillation. We will continue physical therapy, replace her potassium, and follow.
[2016-07-09] MEDS: ASPIRIN PR SCH (10:07)
[2016-07-09] MEDS: ATIVAN IV PRN (10:44)
[2016-07-09] MEDS: PROTONIX IV SCH (12:18)
[2016-07-09] MEDS: SODIUM CHLORIDE 0.9% INJ SCH (12:18)
[2016-07-09] MEDS: GEODON IM PRN (12:19)
[2016-07-09] MEDS: LEVAQUIN 500 MG/D5W 100 ML IV SCH (12:19)
[2016-07-09] MEDS: LOVENOX SUBQ SCH (12:31)
--- NOTE | 2016-07-09 13:54 | PROGRESS NOTE ---
DATE: 07/09/2016 CHIEF COMPLAINT: Weakness of the right side of the body, aphasia, irregular heartbeat. SUBJECTIVE: Mrs. Rodriguez remains aphasic. Her heart rate has been somewhat erratic, difficult to control. Her blood pressure has also been bouncing up and down. She has been put back on Cardizem IV at rate of 15, and she is being given IV hydralazine. OBJECTIVE: Vital signs: Right now, her blood pressure is 133/75, pulse 90, respirations 14, temperature 97.6. General: She is awake, alert. She mumbles. She moves the left side of her body, not the right. HEENT: Unremarkable. Chest: Symmetrical breath sounds. Cardiovascular: Heart sounds are irregularly irregular. No gallop or murmur. Abdomen: Nontender. No hepatomegaly. Extremities: Extremities show no edema. Neurological exam: She has paralysis of the right side and aphasia. LABORATORY: Blood work: Hemoglobin is 16.1, hematocrit 44.9, white count 6100. Sodium 132, potassium 3.0, BUN 13, creatinine 0.4. Her albumin is 3.1. She has not been able to swallow potassium pill. IMPRESSION: 1. Patient who has suffered what appears to be a very significant left middle cerebral artery stroke. 2. Paroxysmal atrial fibrillation. 3. Hypokalemia, hyponatremia. 4. History of dementia. RECOMMENDATIONS: We will add digoxin to her regimen. We will give her some potassium replacement IV. Further intervention will depend on her clinical course. Thank you for the opportunity to participate in her evaluation. Best regards.
[2016-07-09] MEDS ORDERED: POTASSIUM CHLORIDE 60 MEQ in NS 500 ML IV ONE (14:00)
[2016-07-09] MEDS: CLINIMIX E 4.25%-5% SOLUTION 1,000 ML IV SCH (16:53)
[2016-07-09] MEDS: LANOXIN IV SCH ×2 (17:35→23:29)
[2016-07-09] MEDS: XOPENEX NEB INH PRN (19:35)
[2016-07-09] MEDS: LIPITOR PO SCH (20:17)
[2016-07-10] MEDS: FLAGYL 500 MG/NS 100 ML IV SCH ×3 (02:20→19:43)
[2016-07-10] MEDS: LANOXIN IV SCH (05:26)
[2016-07-10 07:19] LABS: HEMATOCRIT 43.9 % (37.0-47.0); HEMOGLOBIN 15.4 g/dL (12.0-16.0); MCH 30.7 PG (27-31); MCHC 35.1 g/dL (33-37); MCV 87.6 FL (81-99); MPV 10.2 FL (7.4-10.4); RBC 5.01 XMIL (4.2-5.4)
[2016-07-10 08:00] LABS: AGAP 14; ALBUMIN 2.7 g/dL (3.5-5.0); ALKALINE PHOSPHATASE 64 U/L (32-104); BUN 9 mg/dL (8-22); CALCIUM 8.9 mg/dL (8.8-10.2); CHLORIDE 102 mmol/L (98-107); COSMO 270; GOT 22 U/L (10-30); GPT 12 U/L (10-36); POTASSIUM 3.6 mmol/L (3.5-5.1); SODIUM 135 mmol/L (136-145); TCO2 19 mmol/L (25-35); TOTAL PROTEIN 5.1 g/dL (6.3-8.3)
[2016-07-10] MEDS: XOPENEX NEB INH PRN ×2 (08:19→20:14)
--- NOTE | 2016-07-10 09:12 | PROGRESS NOTE ---
DATE: 07/10/2016 SUBJECTIVE: The patient unfortunately has no true purposeful movement of her right side. She does have some movement of her left. She attempts to talk at times but makes no intelligible words. Does not follow commands. The nurses note no new issues. She is still having issues with her heart rate. OBJECTIVE: Vital Signs: Temperature 97, pulse 112-124, respiratory 18, BP 173/95, sat 100% on 2 L. General: The patient is a well-developed female who appears her stated age of 61. Unfortunately, she is nonverbal, does not follow commands. HEENT: Normocephalic. Neck: Supple. Cardiovascular: Irregular rate, irregular rhythm. Chest: Relatively clear. Abdomen: Soft. DIAGNOSTIC DATA: CBC normal. CMP normal. Albumin 2.7. ASSESSMENT/PLAN: 1. Moderate protein calorie malnutrition. 2. Urinary tract infection. Urine culture still pending. Currently on Levaquin and Flagyl. 3. Acute cerebrovascular accident. Unfortunately is not improving. 4. Atrial fibrillation with rapid ventricular response. Dr. Combs saw the patient in consultation yesterday and added digoxin. She continues on a Cardizem drip. 5. Unfortunately patient is not tolerating p.o. at this point. Therefore, we will continue her in the ICU and continue IV medications. Further orders as needed.
[2016-07-10] MEDS: NS 1,000 ML IV SCH ×2 (11:08→23:48)
[2016-07-10] MEDS: PROTONIX IV SCH (11:09)
[2016-07-10] MEDS: SODIUM CHLORIDE 0.9% INJ SCH (11:09)
[2016-07-10] MEDS: LEVAQUIN 500 MG/D5W 100 ML IV SCH (11:09)
[2016-07-10] MEDS: CLINIMIX E 4.25%-5% SOLUTION 1,000 ML IV SCH (11:09)
[2016-07-10] MEDS: ASPIRIN PR SCH (11:10)
[2016-07-10] MEDS ORDERED: LANOXIN IV ONE (13:30)
[2016-07-10] MEDS: ATIVAN IV PRN (13:47)
[2016-07-10] MEDS: LOVENOX SUBQ SCH (13:52)
[2016-07-10] MEDS: GEODON IM PRN (15:40)
[2016-07-10] MEDS: CARDIZEM 100 MG/NS 100 ML IV SCH (15:58)
[2016-07-10] MEDS: LIPITOR PO SCH (23:47)
[2016-07-11] MEDS: NS 1,000 ML IV SCH ×2 (00:26→10:24)
[2016-07-11] MEDS: FLAGYL 500 MG/NS 100 ML IV SCH ×3 (03:52→19:48)
[2016-07-11] MEDS: LANOXIN IV SCH (09:00)
[2016-07-11] MEDS: ASPIRIN PR SCH (09:01)
[2016-07-11] MEDS: CLINIMIX E 4.25%-5% SOLUTION 1,000 ML IV SCH ×2 (09:01→10:24)
[2016-07-11] MEDS: ATIVAN IV PRN ×2 (10:12→22:02)
--- NOTE | 2016-07-11 11:34 | PROGRESS NOTE ---
DATE: 07/11/2016 SUBJECTIVE: The patient still continues to be weak on the right side. She still continues to be unable to talk or follow commands. She is awake, however. PHYSICAL EXAMINATION: Temperature 97, pulse 70 to 104. She currently is on Cardizem drip. Respiratory 18. BP 161/97. General: The patient is a well-developed female who currently is in no respiratory distress. She is awake, appears alert. She is sitting in the bed watching television; however, she does not answer questions nor follow commands. She does appear to attempt to answer questions but makes no verbal response. Extremities: Moves all extremities. HEENT: Normocephalic atraumatic. Neck supple. CV: Irregular rate. Irregular rhythm. Chest: Relatively clear, nonwheezing, no crackles. Abdomen is soft. Extremities: She moves her left upper extremity and lower extremity well. She does not have much purposeful movement of the right side. LABORATORY DATA: Still pending. ASSESSMENT: 1. Atrial fibrillation with rapid ventricular rate, currently improving. She still is on a Cardizem drip. 2. Large left middle cerebral artery stroke. The patient continues to be aphasic. 3. History of dementia. This certainly appears to be causing problems with her current care. PLAN: We will continue Cardizem drip and continue her in the ICU. Continue physical therapy. Continue to monitor closely. Still concerned about her ability to take p.o.
[2016-07-11] MEDS: LEVAQUIN 500 MG/D5W 100 ML IV SCH (12:45)
[2016-07-11] MEDS: PROTONIX IV SCH (12:45)
[2016-07-11] MEDS: SODIUM CHLORIDE 0.9% INJ SCH (12:45)
[2016-07-11] MEDS: LOVENOX SUBQ SCH (12:46)
[2016-07-11] MEDS: CARDIZEM 100 MG/NS 100 ML IV SCH (12:46)
[2016-07-11] MEDS: LIPITOR PO SCH (21:53)
[2016-07-12] MEDS: NS 1,000 ML IV SCH ×4 (04:14→21:11)
[2016-07-12] MEDS: CLINIMIX E 4.25%-5% SOLUTION 1,000 ML IV SCH ×2 (04:15→23:00)
[2016-07-12] MEDS: FLAGYL 500 MG/NS 100 ML IV SCH ×3 (04:15→20:05)
[2016-07-12] MEDS: LANOXIN IV SCH (08:13)
[2016-07-12] MEDS: ASPIRIN PR SCH (08:13)
[2016-07-12] MEDS: PROTONIX IV SCH (13:11)
[2016-07-12] MEDS: SODIUM CHLORIDE 0.9% INJ SCH (13:11)
[2016-07-12] MEDS: LEVAQUIN 500 MG/D5W 100 ML IV SCH (13:11)
[2016-07-12] MEDS: GEODON IM PRN (13:12)
[2016-07-12] MEDS: LOVENOX SUBQ SCH (13:12)
[2016-07-12] MEDS: CARDIZEM 100 MG/NS 100 ML IV SCH (13:12)
[2016-07-12] MEDS: APRESOLINE IV PRN (13:13)
--- NOTE | 2016-07-12 13:56 | PROGRESS NOTE ---
DATE: 07/12/2016 SUBJECTIVE: The patient is a little bit more vocal from yesterday's examination; however, she does not make any intelligible words. Does not follow commands. Continues to move her left side freely with minimal movement of her right side. OBJECTIVE: Vital Signs: Temperature 97, pulse 94, respiratory rate 17, blood pressure 180/80. General: Patient is well developed, well nourished. She is currently in no respiratory distress. She is awake, alert. Does not follow commands. HEENT: Normocephalic, atraumatic. Pupils equal, round, and reactive to light. Neck: Supple. Cardiovascular: Regular rate. Chest: Relatively clear. Abdomen: Soft. Neurological: No focal changes. LABS: Reviewed. ASSESSMENT: 1. Right-sided paralysis secondary to a large left cerebellar artery stroke. 2. Acute delirium secondary to her stroke. 3. Acute dysphagia. 4. Hypertension. The patient's blood pressure remained relatively stable, although elevated. Unfortunately, she is not taking p.o. very well. We will continue to observe in the ICU.
[2016-07-12] MEDS: LIPITOR PO SCH (20:22)
[2016-07-13] MEDS: FLAGYL 500 MG/NS 100 ML IV SCH ×3 (04:00→20:33)
[2016-07-13] MEDS: ATIVAN IV PRN ×3 (04:01→22:35)
[2016-07-13 06:38] LABS: INR 1.19 (0.86-1.15); PROTIME 15.4 Seconds (12.1-15.5)
--- NOTE | 2016-07-13 08:54 | PROGRESS NOTE ---
DATE: 07/13/2016 SUBJECTIVE: Patient was much more verbal last night and this morning but still unintelligible words. Does not follow commands. PHYSICAL EXAMINATION: Vital Signs: Reviewed. Temperature 98 degrees, pulse was 69-119, respiratory rate 12-17, BP 105/68 to 151/65. General: Patient is a well-developed female who unfortunately does not follow commands. She does verbalize but not to any certain stimulus. She does not answer questions. She does not speak in intelligible words. She has no movement of her right upper or lower extremity. Good movement of her left upper and lower extremity. CV: Irregular rate, irregular rhythm. Chest: Relatively clear. ASSESSMENT: 1. Cerebrovascular accident secondary to a large left middle cerebral artery stroke. 2. Dysphagia. 3. Dysarthria. 4. Known dementia. 5. Atrial fibrillation with rapid ventricular response. 6. Anxiety. PLAN: We will continue current care in the ICU. Continue IV medications. We will attempt to speak with family regarding PEG tube versus comfort care. We will begin discharge planning. Unfortunately, patient cannot swallow and currently all of her medications have to be IV or per PEG, however. Patient unfortunately will not tolerate an NG tube currently.
[2016-07-13] MEDS: NICODERM PATCH TD PRN (10:29)
[2016-07-13] MEDS: LEVAQUIN 500 MG/D5W 100 ML IV SCH (10:30)
[2016-07-13] MEDS: ASPIRIN PR SCH (10:30)
[2016-07-13] MEDS: LANOXIN IV SCH (10:30)
[2016-07-13] MEDS: PROTONIX IV SCH (10:31)
[2016-07-13] MEDS ORDERED: NS 500 ML ONE (11:57)
[2016-07-13] MEDS: GEODON IM PRN (12:07)
--- NOTE | 2016-07-13 13:36 | Diag Imaging Result Document ---
PROCEDURE NAME: CHEST-PORTABLE - 07/13/2016 PORTABLE CHEST: COMPARISON: 07/06/2016. FINDINGS: There is a new left PICC line with the catheter tip at the upper SVC. The lungs are clear and the heart size is normal. No pneumothorax or pleural effusion. IMPRESSION: Good PICC line placement. No acute disease.
[2016-07-13] MEDS: LOVENOX SUBQ SCH (14:00)
[2016-07-13] MEDS: LIPITOR PO SCH (21:51)
[2016-07-13] MEDS: NS 1,000 ML IV SCH ×2 (22:30→22:31)
[2016-07-13] MEDS: CLINIMIX E 4.25%-5% SOLUTION 1,000 ML IV SCH (22:32)
[2016-07-14] MEDS: CARDIZEM 100 MG/NS 100 ML IV SCH ×2 (00:22→15:15)
[2016-07-14] MEDS: NS 1,000 ML IV SCH (03:23)
[2016-07-14] MEDS: FLAGYL 500 MG/NS 100 ML IV SCH ×2 (04:47→14:00)
[2016-07-14] MEDS: LANOXIN IV SCH (09:17)
[2016-07-14] MEDS: ASPIRIN PR SCH (09:18)
--- NOTE | 2016-07-14 11:02 | PROGRESS NOTE ---
DATE: 07/14/2016 SUBJECTIVE: The patient has no focal complaints. She has significant aphasia so it is difficult to assess. She seems like she is in distress about some issue. I am not sure if it is physical or mental. She is much more awake and alert though than the last I saw her. OBJECTIVE: Vital Signs: Blood pressure 157/81, heart rate of 106, respiratory rate of 15, temperature 97.4 degrees, 100% on room air. Cardiovascular: Regular rate and rhythm. Pulmonary: Bilateral breath sounds clear to auscultation. GI: Soft, nontender, nondistended. Bowel sounds are positive. Extremities: No clubbing or cyanosis. Lymphatics: No peripheral edema. Neurological: Examination was nonfocal except for her right upper extremity weakness and left gaze preference. Laboratory Data: No new labs today. ASSESSMENT AND PLAN: 1. Acute ischemic stroke on the left side with the middle cerebral artery distribution, right- sided hemiparesis and aphasia. Continue aspirin. She is on deep venous thrombosis prophylaxis. We need to work on trying to figure out how were going to do oral medications for her because we need to transition her to oral medications. 2. Hypertension, appears to be stable. 3. Atrial fibrillation, appears to be stable on digoxin and Cardizem. We will continue to monitor. 4. Disposition pending evaluation per speech for a possible feeding tube or other treatments. Then she will likely need rehabilitation.
[2016-07-14] MEDS: PROTONIX IV SCH (11:11)
[2016-07-14] MEDS: LEVAQUIN 500 MG/D5W 100 ML IV SCH (11:12)
[2016-07-14] MEDS: LOVENOX SUBQ SCH (15:02)
[2016-07-14] MEDS: CLINIMIX E 4.25%-5% SOLUTION 1,000 ML IV SCH (15:08)
[2016-07-14] MEDS ORDERED: CARDIZEM PO SCH (16:15)
--- NOTE | 2016-07-14 16:17 | Diag Imaging Result Document ---
PROCEDURE NAME: BA SWALLOW W/VIDEO SPEECH THER - 07/14/2016 MODIFIED BARIUM SWALLOW WITH THE SPEECH THERAPIST. TECHNIQUE: Seventy-nine films obtained. Fluoro time is 51 seconds. Total dose is 332.3 cGy cm2. FINDINGS: Thin barium was swallowed. A small amount aspirated along the anterior surface. No cough reflex. Although there was a delay with swallowing pudding, the patient did eventually swallow it and it passed without difficulty and without aspiration. IMPRESSION: Small amount of thin barium aspirated during swallowing.
[2016-07-14] MEDS: GEODON IM PRN ×2 (16:35→23:03)
[2016-07-14] MEDS: LIPITOR PO SCH (21:02)
[2016-07-14] MEDS: CARDIZEM PO SCH (23:03)
[2016-07-15] MEDS: CLINIMIX E 4.25%-5% SOLUTION 1,000 ML IV SCH ×3 (04:41→18:40)
[2016-07-15] MEDS: ATIVAN IV PRN (04:59)
[2016-07-15] MEDS: CARDIZEM PO SCH ×3 (05:00→18:39)
[2016-07-15 06:42] LABS: HEMATOCRIT 39.5 % (37.0-47.0); HEMOGLOBIN 14.2 g/dL (12.0-16.0); MCH 30.5 PG (27-31); MCHC 35.9 g/dL (33-37); MCV 84.9 FL (81-99); MPV 10.6 FL (7.4-10.4); RBC 4.65 XMIL (4.2-5.4)
[2016-07-15 07:00] LABS: AGAP 13; ALBUMIN 3.1 g/dL (3.5-5.0); BUN 10 mg/dL (8-22); CALCIUM 9.4 mg/dL (8.8-10.2); CHLORIDE 99 mmol/L (98-107); COSMO 269; MAGNESIUM 1.8 mg/dL (1.5-2.7); POTASSIUM 2.8 mmol/L (3.5-5.1); SODIUM 134 mmol/L (136-145); TCO2 22 mmol/L (25-35)
[2016-07-15] MEDS: LANOXIN PO SCH (10:35)
[2016-07-15] MEDS: SODIUM CHLORIDE 0.9% INJ SCH (10:35)
[2016-07-15] MEDS: PROTONIX IV SCH (10:35)
[2016-07-15] MEDS ORDERED: KLOR-CON PO ONE (11:30)
[2016-07-15] MEDS ORDERED: CARDIZEM PO ONE (11:45)
--- NOTE | 2016-07-15 12:08 | PROGRESS NOTE ---
DATE: 07/15/2016 SUBJECTIVE: The patient is awake, alert, but she does not really follow commands regularly. They are having a lot of difficulty getting her to participate in eating and drinking appropriately, to the point where I am not sure if she is really going to meet her needs by what she is taking in at this time. OBJECTIVE: Vital Signs: Heart rate still fluctuating in 60s, but goes up to 110s, 120s. Respiratory rate 14, temp 98.1 degrees, blood pressure 117/66. Cardiovascular: Irregularly irregular. Pulmonary: Bilateral breath sounds. Diminished at bases. Abdomen: Soft, nontender, nondistended. Bowel sounds are positive. LABORATORIES: White count 6, hemoglobin and hematocrit 14 and 39, platelets 288,000. Chemistries: Potassium is 2.8, magnesium 1.8. PROBLEM LIST: 1. Acute ischemic cerebrovascular accident. She has significant expressive aphasia and dysphagia, and right arm weakness which has been very slow to progress. We will continue aspirin, statin, and uncontrol blood pressure and follow. 2. Atrial fibrillation. We are attempting to transition her to oral medications; however, having some difficulty getting her to comply just because of disorientation, confusion. I am not sure how soon that is going to change. It has been about 2 weeks since her stroke, so it is very likely that she may need a feeding tube just to get her medications down and get her to comply with her diet, which is I think what the family had been focusing on. We are doing calorie counts and then, if stable, we will anticipate pursuing PEG tube here in the next 24 hours.
[2016-07-15] MEDS: POTASSIUM CHLORIDE 20 MEQ/SWI 100 ML IV SCH ×2 (12:49→15:09)
[2016-07-15] MEDS: LOVENOX SUBQ SCH (12:50)
[2016-07-15] MEDS: APRESOLINE IV PRN (18:39)
[2016-07-15] MEDS: GEODON IM PRN (19:14)
[2016-07-15] MEDS: LIPITOR PO SCH (21:24)
[2016-07-16] MEDS: CARDIZEM PO SCH ×4 (00:40→20:28)
[2016-07-16] MEDS: CLINIMIX E 4.25%-5% SOLUTION 1,000 ML IV SCH ×2 (05:46→20:29)
[2016-07-16 06:08] LABS: MCH 30.4 PG (27-31); MCHC 35.7 g/dL (33-37); MPV 10.7 FL (7.4-10.4); RBC 4.94 XMIL (4.2-5.4)
[2016-07-16 06:32] LABS: AGAP 13; BUN 13 mg/dL (8-22); CALCIUM 9.7 mg/dL (8.8-10.2); CHLORIDE 99 mmol/L (98-107); COSMO 270; MAGNESIUM 1.8 mg/dL (1.5-2.7); POTASSIUM 3.1 mmol/L (3.5-5.1); SODIUM 134 mmol/L (136-145); TCO2 22 mmol/L (25-35)
[2016-07-16] MEDS: LANOXIN PO SCH (09:33)
--- NOTE | 2016-07-16 11:08 | PROGRESS NOTE ---
DATE: 07/16/2016 SUBJECTIVE: The patient has no focal complaints. OBJECTIVE: Vital Signs: Blood pressure 112/67, heart rate of 100, respiratory rate of 11, temperature 97 degrees. Cardiovascular: Regular rate and rhythm. Pulmonary: Bilateral breath sounds clear to auscultation. GI: Soft, nontender, nondistended. Bowel sounds are positive. Laboratory Data: White count 7, hemoglobin and hematocrit 15 and 42, platelets 335,000. Chemistries: Potassium 3.1. Phosphorus is 4.6. PROBLEM LIST: 1. Acute ischemic stroke with significant expressive aphasia and dysphagia. Her alertness has improved but she is still not eating and drinking appropriately, not enough to meet caloric needs. We are also having difficulty getting her to take her medications which is making it difficult to help control her heart rate. 2. Atrial fibrillation with rapid ventricular response, still intermittent. We are going to try to transition her to oral medications soon. 3. Hypokalemia. Supplement and follow. 4. Dysphagia, protein calorie malnutrition, severe. We have discussed with the family. We will go ahead and plan for a percutaneous endoscopic gastrostomy tube. She has been off her aspirin for 2 days so we will plan to get the percutaneous endoscopic gastrostomy tube hopefully later today versus tomorrow. I have discussed the case with Dr. Wyatt and he will plan to do it today if he can go through the process.
[2016-07-16] MEDS ORDERED: MEFOXIN 1 GM/NS 50 ML IV ONE (12:00)
[2016-07-16] MEDS: PROTONIX IV SCH (13:15)
[2016-07-16] MEDS ORDERED: XYLOCAINE 1%/EPI 1:100,000 ONE (13:24)
[2016-07-16] MEDS ORDERED: DIPRIVAN 1% ONE (15:54)
--- NOTE | 2016-07-16 17:35 | OPERATIVE NOTE ---
PROCEDURE DATE: 07/16/2016 PROCEDURE: Esophagogastroduodenoscopy and PEG tube placement. PREOPERATIVE DIAGNOSES: 1. Oropharyngeal dysphagia. 2. History of cerebrovascular accident. POSTOPERATIVE DIAGNOSES: 1. Duodenitis. 2. Otherwise normal esophagogastroduodenoscopy. HISTORY: This is a 61-year-old white female who has history of possible stroke with expressive a aphasia and dysphagia. She had an EGD done today for PEG tube placement. DESCRIPTION OF PROCEDURE: Informed consent obtained from the patient's family members. The procedure, risks, benefits, and alternatives were explained in layman's terms. They understood. All the pertinent questions answered. Patient was brought to the endoscopy unit and was premedicated as per Anesthesia. After adequate sedation, while she was lying in supine position the gastroscope was introduced into the posterior pharynx and advanced under direct vision into the esophagus. Esophagus in its entire length appeared to be normal. No esophagitis, webs, rings, varices were seen. Scope was then passed through the esophagus into the stomach. Stomach was examined in both straight and retroflexed view, which revealed normal cardia, fundus, body, and antrum. The scope was passed through the normal pylorus, into the duodenal bulb, and then second part of duodenum where I noticed hyperemic edematous mucosa suggestive of mild duodenitis. No ulcer, AVM or masses were seen. No evidence of active bleeding or stigmata of recent bleed seen. Scope was withdrawn back in the stomach. The stomach was insufflated. An area of maximum indentation and transillumination was noted and marked onto the anterior abdominal wall about 2 cm below the subcostal margin, about a centimeter left of the midline. This spot was then cleansed, sterilized, and draped using universal precaution. Using lidocaine with epinephrine the spot was anesthetized. After that a 1 cm long incision was made onto the anterior abdominal wall. Then using a needle with a trocar the stomach was accessed, needle was removed leaving the trocar in place. A nylon guidewire was then passed through the trocar into the stomach, which was grasped using a snare, and it was removed with the scope without difficulty. A PEG 24 was then attached onto the distal end of the nylon guidewire and it was deployed into the stomach by pull-through method without any difficulty. A dressing was applied. The scope was then reintroduced back into the stomach where internal bumper was noted to be in an adequate position. The scope was then removed. Patient tolerated the procedure well. No complications noted. Patient was then transferred to the recovery area in a stable condition. IMPRESSION: Duodenitis. Otherwise normal esophagogastroduodenoscopy, PEG 24 placed. RECOMMENDATION: Feeding was started 4 hours after the procedure and will continue to monitor the residual and advance diet as tolerated as per dietitian. I will be available if needed.
[2016-07-16] MEDS ORDERED: CARDIZEM IV ONE (17:53)
[2016-07-16] MEDS: POTASSIUM CHLORIDE 20 MEQ/SWI 100 ML IV SCH ×3 (19:51→22:54)
[2016-07-16] MEDS: LIPITOR PO SCH (21:07)
[2016-07-16] MEDS: KEFZOL 500 MG in NS 50 ML IV SCH (21:07)
[2016-07-16] MEDS: ATIVAN IV PRN (21:21)
[2016-07-16] MEDS ORDERED: CARDIZEM 100 MG/NS 100 ML IV SCH (22:00)
[2016-07-17] MEDS: ATIVAN IV PRN ×3 (01:15→17:55)
[2016-07-17] MEDS: KEFZOL 500 MG in NS 50 ML IV SCH ×3 (05:12→22:04)
[2016-07-17 06:24] LABS: AGAP 11; BUN 11 mg/dL (8-22); CALCIUM 9.3 mg/dL (8.8-10.2); CHLORIDE 99 mmol/L (98-107); COSMO 269; POTASSIUM 3.2 mmol/L (3.5-5.1); SODIUM 134 mmol/L (136-145); TCO2 24 mmol/L (25-35)
[2016-07-17 07:21] LABS: HEMATOCRIT 39.7 % (37.0-47.0); HEMOGLOBIN 14.3 g/dL (12.0-16.0); MCH 30.8 PG (27-31); MCV 85.4 FL (81-99); MPV 10.4 FL (7.4-10.4); RBC 4.65 XMIL (4.2-5.4)
[2016-07-17] MEDS: CLINIMIX E 4.25%-5% SOLUTION 1,000 ML IV SCH (08:48)
[2016-07-17] MEDS: LANOXIN PO SCH (08:49)
[2016-07-17] MEDS ORDERED: XYLOCAINE-MPF 2% ONE (09:47)
[2016-07-17] MEDS ORDERED: POTASSIUM CHLORIDE 20% LIQUID GT ONE (10:11)
[2016-07-17] MEDS ORDERED: LOVENOX SUBQ SCH (10:15)
[2016-07-17] MEDS: NICODERM PATCH TD PRN (10:39)
[2016-07-17] MEDS: APRESOLINE IV PRN ×2 (10:39→17:55)
[2016-07-17] MEDS: CARDIZEM PO SCH ×2 (10:39→13:26)
--- NOTE | 2016-07-17 11:10 | PROGRESS NOTE ---
DATE: 07/17/2016 SUBJECTIVE: The patient is still very alert, but still very agitated, still confused, follows commands intermittently. Apparently, she ambulated without difficulty, which is good, but still significant speech aphasia issues and very agitated, picking at everything. OBJECTIVE: Vital Signs: Heart rate still high, 130s-140s. She had recently ambulated, obviously. Respiratory rate is 16, temperature 97.4 degrees. Cardiovascular: Tachycardic and irregular. Pulmonary: Clear to auscultation anteriorly. Gastrointestinal: Soft, nontender, and nondistended. Bowel sounds are positive. Her binder is over her PEG tube. LABORATORY DATA: White count is up a little bit, 11. Hemoglobin and hematocrit 14 and 39, platelets 289,000. Chemistries: Potassium 3.2. PROBLEM LIST: 1. Acute ischemic cerebrovascular accident. She seems to be stable. At some point, I think we can entertain starting anticoagulation. I am going to resume her Lovenox and aspirin, and follow. We will continue to follow closely. I think at this point we need to work on rehabilitation placement and follow, once we can get her heart rate under control. 2. Atrial fibrillation with rapid ventricular response, still not under control. She is on digoxin and Cardizem. I am going to try that. If that does not work, we may have to go to amiodarone. Again, she needs long-term anticoagulation. Will discuss with Neurology when that is feasible. We are initiating tube feeds and we will follow concurrently.
[2016-07-17] MEDS: SODIUM CHLORIDE 0.9% INJ SCH (13:26)
[2016-07-17] MEDS: PROTONIX IV SCH (13:26)
[2016-07-17] MEDS ORDERED: CARDIZEM 100 MG/NS 100 ML IV SCH (17:55)
[2016-07-17] MEDS ORDERED: RISPERDAL PO ONE (17:59)
[2016-07-17] MEDS ORDERED: CORDARONE 360 MG/D5W 200 ML IV ONE ×2 (20:35→21:00)
[2016-07-17] MEDS ORDERED: CORDARONE 150 MG/D5W 100 ML IV ONE ×2 (20:35→21:00)
[2016-07-17] MEDS ORDERED: SEROQUEL PO SCH (21:00)
[2016-07-17] MEDS: LIPITOR PO SCH (22:04)
[2016-07-17] MEDS: RISPERDAL PO SCH (22:05)
[2016-07-18] MEDS ORDERED: CORDARONE 540 MG in D5W 289.2 ML IV ONE (02:45)
[2016-07-18] MEDS: CORDARONE 360 MG/D5W 200 ML IV ONE ×2 (02:47→14:36)
[2016-07-18] MEDS ORDERED: CORDARONE 360 MG/D5W 200 ML IV ONE (03:00)
[2016-07-18] MEDS: KEFZOL 500 MG in NS 50 ML IV SCH ×3 (04:29→20:26)
[2016-07-18 05:52] LABS: HEMOGLOBIN 13.5 g/dL (12.0-16.0); MCHC 35.5 g/dL (33-37); MCV 87.2 FL (81-99); MPV 10.3 FL (7.4-10.4); RBC 4.36 XMIL (4.2-5.4)
[2016-07-18 06:18] LABS: AGAP 11; BUN 12 mg/dL (8-22); CALCIUM 9.1 mg/dL (8.8-10.2); CHLORIDE 101 mmol/L (98-107); COSMO 271; MAGNESIUM 1.7 mg/dL (1.5-2.7); POTASSIUM 3.5 mmol/L (3.5-5.1); SODIUM 134 mmol/L (136-145); TCO2 22 mmol/L (25-35)
[2016-07-18] MEDS: ASPIRIN EC SCH (09:01)
[2016-07-18] MEDS: RISPERDAL PO SCH ×2 (09:01→20:26)
[2016-07-18] MEDS ORDERED: LOVENOX 1 MG/KG SUBQ SCH (12:15)
[2016-07-18] MEDS ORDERED: LASIX IV ONE (12:35)
[2016-07-18] MEDS: SODIUM CHLORIDE 0.9% INJ SCH (12:50)
[2016-07-18] MEDS: LOVENOX SUBQ SCH (12:50)
[2016-07-18] MEDS: PROTONIX IV SCH (12:50)
--- NOTE | 2016-07-18 12:58 | EKG Report ---
Test Performed on : 07/18/2016 09:42:37 AM Test Reason : rhythm change Blood Pressure : / mmHG Vent. Rate : 082 BPM Atrial Rate : 082 BPM P-R Int : 134 ms QRS Dur : 090 ms QT Int : 420 ms P-R-T Axes : 105 070 249 degrees QTc Int : 490 ms Sinus rhythm. with premature atrial complexes. Left ventricular hypertrophy with repolarization abnormality Prolonged QT Abnormal ECG When compared with ECG of 04-JUL-2016 17:22, T wave inversion more evident in Inferior leads T wave inversion now evident in Anterolateral leads Unconfirmed Result
[2016-07-18] MEDS ORDERED: MAGNESIUM SULFATE 2 GM/S.W.I. 50 ML IV ONE (14:25)
[2016-07-18] MEDS ORDERED: POTASSIUM CHLORIDE 20% LIQUID PO ONE (14:26)
[2016-07-18 14:42] LABS: URINE MICROSCOPIC NEEDED? NO; URINE SOURCE CATH
[2016-07-18 14:50] LABS: BILIRUBIN URINE NEGATIVE (NEGATIVE); BLOOD URINE NEGATIVE (NEGATIVE); CLARITY CLEAR (CLEAR); COLOR YELLOW; GLUCOSE URINE NEGATIVE (NEGATIVE); LEUKOCYTES URINE NEGATIVE (NEGATIVE); NITRITE URINE NEGATIVE (NEGATIVE); PROTEIN URINE NEGATIVE (NEGATIVE); UROBILINOGEN URINE NORMAL
[2016-07-18] MEDS ORDERED: AMIODARONE IV ONE (15:00)
[2016-07-18] MEDS ORDERED: DEXTROSE IV ONE (15:00)
--- NOTE | 2016-07-18 15:13 | PROGRESS NOTE ---
DATE: 07/18/2016 CHIEF COMPLAINT: Aphasia, weakness, right side. SUBJECTIVE: Patient is awake; however, she is really nonverbal and noncooperative. Does not follow any commands. Patient's rhythm changed to atrial fibrillation. Dr. Gonzales switched her over to amiodarone, and she is in back in sinus rhythm. OBJECTIVE: Vital signs: Blood pressure is 135/77, temperature 97.4, pulse 96, respirations 18. General: Awake, does not follow any commands. HEENT: Unremarkable. Chest: Symmetrical breath sounds. Cardiovascular: Heart sounds are regular and rhythmic at this time. Abdomen: Soft. Extremities: No edema. Neurological exam: Weakness on the right side, right hand, and aphasia. LABORATORY: Blood work: Her hemoglobin is 13.5. Her potassium is 3.5. Magnesium is 1.7. Sodium 134. IMPRESSION: 1. Patient who has developed paroxysmal atrial fibrillation. 2. Patient has had a large middle cerebral artery stroke. 3. She is status post insertion of a percutaneous gastrostomy tube per Dr. Wyatt on 07/16/2016. RECOMMENDATIONS: I agree with current plan of using amiodarone at low dose. I would suggest to keep her on the 400 mg for the next three weeks and then drop it to 200 mg daily. I agree with anticoagulation. I would suggest to give her a dose of potassium and magnesium today. Monitor electrolytes.
[2016-07-18] MEDS: ATIVAN IV PRN (17:27)
[2016-07-18] MEDS: COUMADIN GT SCH (20:25)
[2016-07-18] MEDS: LIPITOR PO SCH (20:26)
[2016-07-19] MEDS: PROTONIX IV SCH ×3 (01:00→22:34)
[2016-07-19] MEDS: KEFZOL 500 MG in NS 50 ML IV SCH ×3 (04:24→22:56)
[2016-07-19 07:57] LABS: HEMATOCRIT 37.7 % (37.0-47.0); HEMOGLOBIN 13.3 g/dL (12.0-16.0); MCH 31.1 PG (27-31); MCHC 35.3 g/dL (33-37); MCV 88.1 FL (81-99); MPV 10.6 FL (7.4-10.4); RBC 4.28 XMIL (4.2-5.4)
[2016-07-19 08:11] LABS: INR 1.06 (0.86-1.15); PROTIME 14.1 Seconds (12.1-15.5)
[2016-07-19 08:20] LABS: AGAP 8; BUN 13 mg/dL (8-22); CALCIUM 9.2 mg/dL (8.8-10.2); CHLORIDE 100 mmol/L (98-107); COSMO 275; POTASSIUM 3.3 mmol/L (3.5-5.1); SODIUM 136 mmol/L (136-145); TCO2 28 mmol/L (25-35)
[2016-07-19] MEDS: NICODERM PATCH TD SCH (09:44)
[2016-07-19] MEDS: ASPIRIN EC SCH (09:45)
[2016-07-19] MEDS: RISPERDAL PO SCH ×2 (09:45→22:33)
[2016-07-19] MEDS: CORDARONE GT SCH (09:45)
[2016-07-19] MEDS: LOVENOX SUBQ SCH (11:43)
[2016-07-19] MEDS: PYRIDIUM GT SCH ×2 (12:35→17:46)
[2016-07-19] MEDS: POTASSIUM CHLORIDE 20% LIQUID PO SCH (12:35)
[2016-07-19] MEDS: DIFLUCAN PO SCH (12:36)
[2016-07-19] MEDS ORDERED: PYRIDIUM PO SCH (13:00)
--- NOTE | 2016-07-19 14:10 | PROGRESS NOTE ---
DATE: 07/19/2016 ADDENDUM: I did discuss the case with Dr. Mcfarlane about anticoagulation because it is about 2 weeks out from her stroke and she is going in and out of atrial fibrillation and we had to start amiodarone for control. I think she is at very high risk for recurrent stroke without anticoagulation. There is a small risk of bleed. We will initiate low-dose anticoagulation and slowly build up her INR. So we will initiate Coumadin and follow closely. Anticipate transfer to the floor soon. We will closely monitor.
[2016-07-19] MEDS: COUMADIN GT SCH (22:34)
[2016-07-19] MEDS: SODIUM CHLORIDE 0.9% INJ SCH (22:34)
[2016-07-19] MEDS: LIPITOR PO SCH (22:34)
[2016-07-19] MEDS ORDERED: NS 500 ML ONE (22:53)
[2016-07-19] MEDS: ATIVAN IV PRN (22:57)
[2016-07-20] MEDS: PROTONIX IV SCH ×2 (01:49→13:41)
[2016-07-20 07:03] LABS: HEMATOCRIT 36.5 % (37.0-47.0); HEMOGLOBIN 12.7 g/dL (12.0-16.0); MCH 30.5 PG (27-31); MCHC 34.8 g/dL (33-37); MCV 87.5 FL (81-99); MPV 10.7 FL (7.4-10.4); RBC 4.17 XMIL (4.2-5.4)
[2016-07-20 07:13] LABS: AGAP 8; BUN 12 mg/dL (8-22); CALCIUM 9.1 mg/dL (8.8-10.2); CHLORIDE 98 mmol/L (98-107); COSMO 265; MAGNESIUM 1.8 mg/dL (1.5-2.7); POTASSIUM 3.9 mmol/L (3.5-5.1); SODIUM 131 mmol/L (136-145); TCO2 25 mmol/L (25-35)
[2016-07-20] MEDS: NICODERM PATCH TD SCH (09:19)
[2016-07-20] MEDS: DIFLUCAN PO SCH (09:19)
[2016-07-20] MEDS: CORDARONE GT SCH (09:19)
[2016-07-20] MEDS: ASPIRIN EC SCH (09:19)
[2016-07-20] MEDS: POTASSIUM CHLORIDE 20% LIQUID PO SCH (09:20)
[2016-07-20] MEDS: RISPERDAL PO SCH ×2 (09:20→21:00)
[2016-07-20] MEDS ORDERED: RISPERDAL PO ONE (13:27)
[2016-07-20] MEDS: LOVENOX SUBQ SCH (13:41)
--- NOTE | 2016-07-20 16:19 | PROGRESS NOTE ---
DATE: 07/20/2016 SUBJECTIVE: The patient has no focal complaints. OBJECTIVE: Vital signs: Blood pressure 154/77, heart rate 96, respiratory rate 18, temperature 98.6 degrees, 97% on room air. Cardiovascular: Regular rate and rhythm. Pulmonary: Bilateral breath sounds. Clear to auscultation. GI: Soft, nontender, nondistended. Bowel sounds are positive. LABORATORY DATA: Sodium is 131. Potassium is okay. Magnesium and phosphorus look pretty good. Sugars have been pretty good too. Again, I do not think she is diabetic and neither does she carry a diagnosis of diabetes. We have not checked an A1c on her. ASSESSMENT: 1. Acute ischemic cerebrovascular accident with significant aphasia and dysphagia. The patient is doing pretty well. She is on aspirin. She is on a statin. Continues to improve. Her right upper extremity weakness has improved. Her dysphagia is actually improving somewhat and her aphasia is improving somewhat. 2. Atrial fibrillation. Is rate controlled on amiodarone. Plan is 400 daily times a week and then drop down to 200 daily maintenance. We are slowly anticoagulating with warfarin, slowly building it back up there. I did discuss the case with Dr. Mcfarlane who recommended slow anticoagulation and it was appropriate to do this this many days out from her event as she is at very high risk for further stroke. 3. Vascular dementia with agitation issues. We are going to try to get her out of restraints hopefully and then pursue placement in rehab. A rehab bed is available but she needs to be out of restraints and stable first and is of wander risk unfortunately. 4. Duodenitis. I am going to switch her to Prevacid by tube and we will follow. She started developing diarrhea so we are going to check her for C. difficile, which I think is unlikely. She has been on antibiotics before but has no white count or fever. We are going to switch her tube feeds which is likely the mechanism of her diarrhea. She has been placed on Risperdal for agitation issues. Hopefully that will control things.
[2016-07-20] MEDS: ATIVAN IV PRN (16:41)
[2016-07-20] MEDS: COUMADIN GT SCH (20:59)
[2016-07-20] MEDS: LIPITOR PO SCH (20:59)
[2016-07-21] MEDS: NEXIUM PACKET PO SCH (06:06)
[2016-07-21 06:58] LABS: HEMATOCRIT 36.7 % (37.0-47.0); HEMOGLOBIN 12.9 g/dL (12.0-16.0); MCH 30.9 PG (27-31); MCHC 35.1 g/dL (33-37); RBC 4.17 XMIL (4.2-5.4)
[2016-07-21] MEDS ORDERED: PRILOSEC PO SCH (07:00)
[2016-07-21 07:32] LABS: AGAP 11; BUN 9 mg/dL (8-22); CALCIUM 9.2 mg/dL (8.8-10.2); CHLORIDE 99 mmol/L (98-107); COSMO 267; POTASSIUM 4.1 mmol/L (3.5-5.1); SODIUM 133 mmol/L (136-145); TCO2 24 mmol/L (25-35)
--- NOTE | 2016-07-21 09:07 | PROGRESS NOTE ---
DATE: 07/21/2016 SUBJECTIVE: The patient is nonverbal, is unable to vocalize complaints. Staff is unaware of any new complaints or issues. OBJECTIVE: Vital Signs: On physical, temperature 97, pulse 74, respiratory 18, BP 121/65, satting 99% on room air. General: Patient is well-developed. She is currently in no respiratory distress. She is lying in bed. She is restrained. HEENT: Normocephalic, atraumatic. PAMELA. Neck: Supple. CV: Regular rate. Chest: Relatively clear. Occasional rhonchi. No wheezing. Abdomen: Soft. Positive PEG tube. LABS: Sodium 134, creatinine 0.4, glucose 129. ASSESSMENT: 1. Acute ischemic cerebrovascular accident with significant aphasia and dysphagia. Patient seems currently stable. She is able to vocalize at this point, but does not make intelligible words or does not vocalize actual complaints. She does not follow commands currently. 2. Atrial fibrillation. She is rate controlled on amiodarone. Will continue 400 a day for the next five days and then decrease to 200. 3. Vascular dementia with agitation. 4. Duodenitis. Appears improving. 5. Nutrition. Patient currently has a percutaneous endoscopic gastrostomy tube. Will continue feeding per tube. 6. Agitation. Continue Ativan as needed. 7. Hypertension. Continue medications. Continue hydralazine as needed. PLAN: We will continue Risperdal and Ativan to assist with agitation. Will adjust as needed. We will continue to follow. Hopefully she can be weaned off her restraints as she becomes a little more alert and awake. We will continue to follow.
[2016-07-21] MEDS: POTASSIUM CHLORIDE 20% LIQUID PO SCH (09:31)
[2016-07-21] MEDS: CORDARONE GT SCH (09:32)
[2016-07-21] MEDS: RISPERDAL PO SCH ×2 (09:32→21:59)
[2016-07-21] MEDS: ASPIRIN GT SCH (09:32)
[2016-07-21] MEDS: DIFLUCAN PO SCH (09:32)
[2016-07-21] MEDS: NICODERM PATCH TD SCH (09:32)
[2016-07-21] MEDS: LOVENOX SUBQ SCH (11:32)
[2016-07-21] MEDS: ATIVAN IV PRN (15:43)
[2016-07-21] MEDS: COUMADIN GT SCH (21:59)
[2016-07-21] MEDS: LIPITOR PO SCH (21:59)
[2016-07-21] MEDS: APRESOLINE IV PRN (22:00)
[2016-07-22] MEDS: NEXIUM PACKET PO SCH (06:09)
--- NOTE | 2016-07-22 07:47 | PROGRESS NOTE ---
DATE: 07/22/2016 SUBJECTIVE: No new complaints. The patient is awake and alert, lying in the bed. She does not answer questions nor follow commands. OBJECTIVE: Vital Signs: Reviewed. Temperature 98 degrees, pulse 73, respiratory rate 18, blood pressure 93/46 to 114/50. General: The patient is well developed, well nourished. She is currently in no real respiratory distress. She is awake, alert, but does not answer questions and does not follow commands. She does not vocalize but makes unintelligible noises. LABORATORY DATA: No new labs today. ASSESSMENT: 1. Acute ischemic cerebrovascular accident with significant aphasia and dysphagia. The patient unfortunately has improved only minimally. 2. Hypokalemia, resolved. 3. Hyponatremia, stable. 4. Mild hyperglycemia, stable. 5. Atrial fibrillation, currently rate controlled on amiodarone. 6. Vascular dementia. We will hold on any anticoagulation presently; however, next week we will begin to slowly anticoagulate. PLAN: The patient can be weaned off of restraints. We can begin looking for rehab and more permanent placement.
[2016-07-22] MEDS: NICODERM PATCH TD SCH (09:53)
[2016-07-22] MEDS: CORDARONE GT SCH (09:53)
[2016-07-22] MEDS: ASPIRIN GT SCH (09:53)
[2016-07-22] MEDS: DIFLUCAN PO SCH (09:53)
[2016-07-22] MEDS: POTASSIUM CHLORIDE 20% LIQUID PO SCH (09:53)
[2016-07-22] MEDS: RISPERDAL PO SCH ×2 (09:54→21:04)
[2016-07-22] MEDS: ATIVAN IV PRN (10:24)
[2016-07-22] MEDS: LOVENOX SUBQ SCH (11:44)
[2016-07-22] MEDS: GEODON IM PRN ×2 (12:32→20:48)
[2016-07-22] MEDS: STERILE WATER INJ. INJ PRN (12:47)
[2016-07-22] MEDS: LIPITOR PO SCH (21:04)
[2016-07-22] MEDS: COUMADIN GT SCH (21:04)
[2016-07-23] MEDS: NEXIUM PACKET PO SCH (06:16)
--- NOTE | 2016-07-23 07:55 | PROGRESS NOTE ---
DATE: 07/23/2016 SUBJECTIVE: No changes. Patient does not verbalize complaints. She is much more verbal than she was initially but still unintelligible. OBJECTIVE: Vital signs: Temperature 97 degrees, pulse 94, respiratory rate 18, BP 117/53 to 179/82. General: The patient is well developed, well nourished. She is currently in no real respiratory distress. She is awake, alert. She currently is in restraints secondary to frequent agitation as noted by her blood pressures that can go from 90 systolic to 180 systolic; depends on her agitation level. Also patient is a fall risk and she does not understand to not get out of bed. We will continue during the day to attempt to loosen the restraints and let physical therapy help get her up and out of bed. ASSESSMENT AND PLAN: 1. Atrial fibrillation, stable. 2. Vascular dementia. 3. Agitation, improving. 4. Hypertension. Blood pressure is much more stable when she is not agitated.
[2016-07-23] MEDS: NICODERM PATCH TD SCH (09:01)
[2016-07-23] MEDS: POTASSIUM CHLORIDE 20% LIQUID PO SCH (09:01)
[2016-07-23] MEDS: CORDARONE GT SCH (09:01)
[2016-07-23] MEDS: ASPIRIN GT SCH (09:01)
[2016-07-23] MEDS: DIFLUCAN PO SCH (09:13)
[2016-07-23] MEDS: RISPERDAL PO SCH ×2 (10:25→20:32)
[2016-07-23] MEDS: LOVENOX SUBQ SCH (11:50)
[2016-07-23] MEDS: GEODON IM PRN (15:04)
[2016-07-23] MEDS: ATIVAN IV PRN ×2 (17:15→21:31)
[2016-07-23] MEDS: LIPITOR PO SCH (20:32)
[2016-07-23] MEDS: COUMADIN GT SCH (20:32)
[2016-07-24] MEDS: NEXIUM PACKET PO SCH (06:08)
[2016-07-24] MEDS: ATIVAN IV PRN ×2 (06:21→21:51)
[2016-07-24] MEDS: NICODERM PATCH TD SCH (08:23)
[2016-07-24] MEDS: POTASSIUM CHLORIDE 20% LIQUID PO SCH (08:23)
[2016-07-24] MEDS: ASPIRIN GT SCH (08:23)
[2016-07-24] MEDS: CORDARONE GT SCH (08:23)
[2016-07-24] MEDS: DIFLUCAN PO SCH (08:23)
[2016-07-24] MEDS: RISPERDAL PO SCH ×2 (08:24→20:03)
--- NOTE | 2016-07-24 08:37 | PROGRESS NOTE ---
DATE: 07/24/2016 SUBJECTIVE: No new complaints. OBJECTIVE: Vital Signs: On physical exam, temp 98, pulse 87, respiratory rate 20, BP 145/91, satting 96% on room air. General: Patient is awake, alert, but unfortunately she is nonverbal. She does vocalize, but does not make intelligible words, does not follow commands. HEENT: Normocephalic. Neck: Supple. CV: Regular rate. Chest: Relatively clear. Abdomen: Soft. ASSESSMENT: 1. Acute ischemic cerebrovascular accident with significant aphasia. Dysphasia is improving. 2. Atrial fibrillation, rate controlled. 3. Vascular dementia. 4. Acute agitation. This appears to be getting better. Her blood pressures are not quite as erratic, currently 115-146. However, previously when she would become agitated, her blood pressure would go 180-200 systolic. We are attempting to keep her out of restraints as long as possible. PLAN: We will continue to follow.
[2016-07-24] MEDS: LOVENOX SUBQ SCH (16:16)
[2016-07-24] MEDS: GEODON IM PRN ×2 (17:29→23:48)
[2016-07-24] MEDS: COUMADIN GT SCH (20:02)
[2016-07-24] MEDS: LIPITOR PO SCH (20:02)
[2016-07-25] MEDS: NEXIUM PACKET PO SCH (06:25)
[2016-07-25] MEDS: POTASSIUM CHLORIDE 20% LIQUID PO SCH (09:30)
[2016-07-25] MEDS: CORDARONE GT SCH (09:30)
[2016-07-25] MEDS: NICODERM PATCH TD SCH (09:30)
[2016-07-25] MEDS: DIFLUCAN PO SCH (09:30)
[2016-07-25] MEDS: ASPIRIN GT SCH (09:30)
--- NOTE | 2016-07-25 11:06 | PROGRESS NOTE ---
DATE: 07/25/2016 SUBJECTIVE: Patient without any new complaints. She is awake and alert. She is agitated at times. She does not however make any intelligible conversation. OBJECTIVE: Vital Signs: Reviewed. Temperature 97 degrees, pulse 91, respiratory 21, BP 154/73, saturation 94% on room air. General: Patient is a well-developed, well-nourished, elderly female who is currently in no respiratory distress. She is awake, alert. Neck: Supple. CV: Regular rate. Chest: Relatively clear. Abdomen: Soft. Extremities: Patient is noted to move all 4 extremities without any weakness. Neurologic: No changes from previous exams. Patient is awake, alert but she is nonverbal. She does vocalize but does not make intelligible words, does not follow commands. ASSESSMENT: 1. Acute ischemic CVA with significant aphasia. 2. Dysphagia seems to be improving. 3. Atrial fibrillation currently rate controlled. 4. Vascular dementia. 5. Acute agitation. Will continue medications. PLAN: We will continue her current medications. Continue to leave restraints off when we can have extra staff in the room. Will continue TPN. We will begin adding an aspirin early in the week.
[2016-07-25] MEDS: LOVENOX SUBQ SCH (13:40)
[2016-07-25] MEDS: RISPERDAL PO SCH ×2 (18:20→21:04)
[2016-07-25] MEDS ORDERED: RISPERDAL PO ONE (20:23)
[2016-07-25] MEDS: COUMADIN GT SCH (21:02)
[2016-07-25] MEDS: LIPITOR PO SCH (21:02)
[2016-07-25] MEDS: ATIVAN IV PRN (23:38)
[2016-07-25] MEDS: GEODON IM PRN (23:38)
[2016-07-26] MEDS: NEXIUM PACKET PO SCH (06:03)
[2016-07-26] MEDS: NICODERM PATCH TD SCH (08:28)
[2016-07-26] MEDS: DIFLUCAN PO SCH (08:28)
[2016-07-26] MEDS: CORDARONE GT SCH (08:28)
[2016-07-26] MEDS: ASPIRIN GT SCH (08:28)
[2016-07-26] MEDS: POTASSIUM CHLORIDE 20% LIQUID PO SCH (08:29)
[2016-07-26] MEDS: GEODON IM PRN ×3 (08:29→21:26)
[2016-07-26] MEDS: STERILE WATER INJ. INJ PRN ×2 (08:30→14:25)
[2016-07-26] MEDS: ATIVAN IV PRN ×3 (08:31→21:26)
[2016-07-26] MEDS: RISPERDAL PO SCH ×2 (08:50→20:35)
--- NOTE | 2016-07-26 12:08 | PROGRESS NOTE ---
DATE: 07/26/2016 SUBJECTIVE: The patient has no complaints. She is awake and alert. She does not make any intelligible conversation. OBJECTIVE: Blood pressure is 143/63, heart rate is 67, respirations are 18, temperature is 97.9, with room air sats of 100%. Cardiovascular: Regular rate and rhythm, S1 and S2 appreciated. Pulmonary: Breath sounds are clear. No increased work of breathing noted. Gastrointestinal: Abdomen is soft, nontender, nondistended with bowel sounds in all four quadrants. Pulses are palpable x4. Neurologic: She is awake, alert, she is nonverbal. She does vocalize, but does not make intelligible words. She does not follow commands. ASSESSMENT: 1. Acute ischemic cerebrovascular accident with significant aphasia. 2. Dysphagia which seems to be improving. 3. Atrial fibrillation with rate controlled. 4. Vascular dementia. 5. Acute agitation. PLAN: We will continue with her current medications, her current regimen with restraints off when extra staff can be in the room. We will continue TPN. Dictated by FRANCIE Yung for Abrahan Leal MD
[2016-07-26] MEDS: LOVENOX SUBQ SCH (12:20)
[2016-07-26] MEDS: LIPITOR PO SCH (20:35)
[2016-07-26] MEDS: COUMADIN GT SCH (20:35)
[2016-07-27] MEDS: NEXIUM PACKET PO SCH (06:26)
--- NOTE | 2016-07-27 07:49 | PROGRESS NOTE ---
DATE: 07/27/2016 SUBJECTIVE: Patient without complaints. She was noted to ambulate in the gallo yesterday. PHYSICAL EXAMINATION: Vital Signs: Temperature 98, pulse 63, respiratory rate 18, BP 118/64, saturation 97% on room air. General: The patient is a well developed female who is in no respiratory distress. She is awake and alert. She is nonverbal. HEENT: Normocephalic. Neck: Supple. CV: Regular rate. Chest: Relatively clear. Abdomen: Soft. Extremities: Moves all extremities. DIAGNOSTIC DATA: Labs pending. ASSESSMENT: 1. Acute ischemic cerebrovascular accident. 2. Aphasia. 3. Dysphagia. We will recheck swallowing study today. 4. Atrial fibrillation, rate controlled. 5. Vascular dementia. We will start a baby aspirin a day. PLAN: Hopefully, the patient can be transferred to rehabilitation soon. She is no longer requiring restraints and is in her stable baseline.
[2016-07-27] MEDS: ASPIRIN GT SCH (08:32)
[2016-07-27] MEDS: NICODERM PATCH TD SCH (08:34)
[2016-07-27] MEDS: CORDARONE GT SCH (08:36)
[2016-07-27] MEDS: DIFLUCAN PO SCH (08:36)
[2016-07-27] MEDS: RISPERDAL PO SCH ×2 (08:37→21:08)
[2016-07-27] MEDS: POTASSIUM CHLORIDE 20% LIQUID PO SCH (08:38)
[2016-07-27] MEDS: LOVENOX SUBQ SCH ×2 (12:32→14:29)
[2016-07-27] MEDS: LIPITOR PO SCH (21:08)
[2016-07-27] MEDS: COUMADIN GT SCH (21:08)
[2016-07-28] MEDS: NEXIUM PACKET PO SCH (06:15)
[2016-07-28 07:52] LABS: HEMATOCRIT 37.4 % (37.0-47.0); HEMOGLOBIN 12.9 g/dL (12.0-16.0); MCH 30.4 PG (27-31); MCHC 34.5 g/dL (33-37); MCV 88.2 FL (81-99); MPV 10.2 FL (7.4-10.4); RBC 4.24 XMIL (4.2-5.4)
[2016-07-28 08:14] LABS: INR 3.68 (0.86-1.15); PROTIME 36.2 Seconds (12.1-15.5)
[2016-07-28 08:19] LABS: AGAP 10; ALBUMIN 3.1 g/dL (3.5-5.0); ALKALINE PHOSPHATASE 71 U/L (32-104); BUN 15 mg/dL (8-22); CALCIUM 9.1 mg/dL (8.8-10.2); CHLORIDE 99 mmol/L (98-107); COSMO 272; GOT 17 U/L (10-30); GPT 15 U/L (10-36); MAGNESIUM 1.8 mg/dL (1.5-2.7); POTASSIUM 4.1 mmol/L (3.5-5.1); SODIUM 135 mmol/L (136-145); TCO2 26 mmol/L (25-35)
--- NOTE | 2016-07-28 08:25 | PROGRESS NOTE ---
DATE: 07/28/2016 SUBJECTIVE: Patient without any new complaints. She is noted to ambulate the gallo without any difficulty. She does have some issues with pulling out her PEG tube as to be expected. PHYSICAL EXAMINATION: Vital Signs: Temperature 97 degrees, pulse 75, respiratory rate 18, BP 165/85. General: Patient is a well developed, well nourished female who is currently in no respiratory distress. She is awake, alert. She does not follow commands but she is easily redirected. She is nonverbal. HEENT: Normocephalic, atraumatic. PAMELA. Neck: Supple. CV: Regular rate. Chest: Relatively clear. Abdomen: Soft. LABS: No new labs today. We will recheck in the a.m. ASSESSMENT: 1. Acute ischemic cerebrovascular accident with significant aphasia. She is tolerating aspirin well. 2. Asphasia. 3. Dysphagia. Swallowing study is pending. 4. Vascular dementia. 5. Others. PLAN: We will continue to follow. Hopefully can be transferred to an LTAC or rehab soon.
[2016-07-28] MEDS: ASPIRIN GT SCH (09:47)
[2016-07-28] MEDS: POTASSIUM CHLORIDE 20% LIQUID PO SCH (09:47)
[2016-07-28] MEDS: CORDARONE GT SCH (09:47)
[2016-07-28] MEDS: NICODERM PATCH TD SCH (09:48)
[2016-07-28] MEDS: RISPERDAL PO SCH ×2 (09:48→20:49)
[2016-07-28] MEDS: DIFLUCAN PO SCH (09:48)
--- NOTE | 2016-07-28 16:12 | Diag Imaging Result Document ---
PROCEDURE NAME: BA SWALLOW W/VIDEO SPEECH THER - 07/28/2016 MODIFIED BARIUM SWALLOW WITH THE SPEECH THERAPIST: FINDINGS: Fluoroscopy time was 2 minutes and 5 seconds. Total dose was 185.1 cGy cm2. The patient swallowed thin barium without difficulty. No aspiration occurred during the exam. No abnormality identified.
[2016-07-28] MEDS: ATIVAN IV PRN (18:59)
[2016-07-28] MEDS: LIPITOR PO SCH (20:48)
[2016-07-28] MEDS: GEODON IM PRN (20:49)
[2016-07-29 06:21] LABS: AGAP 10; ALBUMIN 3.4 g/dL (3.5-5.0); ALKALINE PHOSPHATASE 71 U/L (32-104); BUN 16 mg/dL (8-22); CALCIUM 8.9 mg/dL (8.8-10.2); CHLORIDE 99 mmol/L (98-107); COSMO 269; GOT 18 U/L (10-30); GPT 14 U/L (10-36); SODIUM 133 mmol/L (136-145); TCO2 24 mmol/L (25-35)
--- NOTE | 2016-07-29 07:57 | PROGRESS NOTE ---
DATE: 07/29/2016 SUBJECTIVE: Patient without any new complaints. She is drinking clear liquids without much difficulty at this point. OBJECTIVE: Vital Signs: Reviewed and stable. General: The patient is lying in bed flat without any difficulty. She is easily awakened. She does not follow commands. She is nonverbal. She does not appear to have the ability to communicate in writing, as when you hand her a pen and paper, she simply stares at them and then looks back at you. HEENT: Normocephalic. Neck: Supple. CV: Regular rate. Chest: Relatively clear. Abdomen: Soft. Extremities: Moves all extremities. ASSESSMENT: 1. Leukocytosis. Her WBC count this morning is actually elevated at 19. Uncertain etiology. She is having no cough, congestion. No shortness of breath. However, we will check a chest x- ray and urinalysis. We will recheck her CBC in the a.m. 2. Hypercoagulopathy. Her INR is elevated at 3.3. We will decrease her Coumadin. Stop her Lovenox. Will continue an aspirin. 3. Atrial fibrillation, rate controlled. 4. Vascular dementia. Continue aspirin and Coumadin. 5. Malnutrition. Patient currently has a PEG tube for which she is receiving TPN. She also passed her swallowing study yesterday so we have started allowing her to have clear liquids, and we will advance as tolerated. PLAN: Patient will be able to transition to rehab soon.
[2016-07-29] MEDS: ASPIRIN GT SCH (09:26)
[2016-07-29] MEDS: RISPERDAL PO SCH ×2 (09:26→21:58)
[2016-07-29] MEDS: POTASSIUM CHLORIDE 20% LIQUID PO SCH (09:26)
[2016-07-29] MEDS: CORDARONE GT SCH (09:26)
[2016-07-29] MEDS: NEXIUM PACKET PO SCH (09:27)
[2016-07-29] MEDS: NICODERM PATCH TD SCH (09:27)
[2016-07-29] MEDS: DIFLUCAN PO SCH (09:27)
[2016-07-29 09:28] LABS: INR 3.52 (0.86-1.15)
[2016-07-29 10:09] LABS: HEMATOCRIT 34.2 % (37.0-47.0); MCH 30.8 PG (27-31); MCHC 35.1 g/dL (33-37); MCV 87.7 FL (81-99); MPV 10.9 FL (7.4-10.4); RBC 3.9 XMIL (4.2-5.4)
--- NOTE | 2016-07-29 11:15 | Diag Imaging Result Document ---
PROCEDURE NAME: CHEST-2 VIEWS - 07/29/2016 FRONTAL AND LATERAL CHEST, THREE VIEWS: COMPARISON: 07/13/2016 FINDINGS: There is a left sided PICC line. The lungs are hyperexpanded. The heart is not enlarged. The vessels are small. There is a small infiltrate in the right lower lobe posteriorly. The upper mid lungs are clear. Mild scoliosis. IMPRESSION: Small right lower lobe infiltrate.
[2016-07-29 12:05] LABS: URINE SOURCE CLEAN CATCH
[2016-07-29 12:07] LABS: BILIRUBIN URINE NEGATIVE (NEGATIVE); BLOOD URINE 1+ (NEGATIVE); CLARITY SL. CLOUDY (CLEAR); COLOR YELLOW; GLUCOSE URINE NEGATIVE (NEGATIVE); LEUKOCYTES URINE 2+ (NEGATIVE); NITRITE URINE NEGATIVE (NEGATIVE); PROTEIN URINE TRACE mg/dL (NEGATIVE); SP GRAVITY URINE 1.015; UROBILINOGEN URINE NORMAL
[2016-07-29 12:21] LABS: URINE CULTURE PL NEEDED? YES; URINE EPITHELIAL CELLS <10 /HPF (<10); URINE RBC <10 /HPF (<10)
[2016-07-29] MEDS ORDERED: ROCEPHIN 1 GM/NS 50 ML IV SCH (13:15)
[2016-07-29] MEDS ORDERED: NS 500 ML IV SCH (19:15)
[2016-07-29] MEDS: LIPITOR PO SCH (21:58)
[2016-07-29] MEDS: ATIVAN IV PRN (23:16)
[2016-07-30 06:15] LABS: HEMATOCRIT 33.2 % (37.0-47.0); HEMOGLOBIN 11.4 g/dL (12.0-16.0); MCH 30.2 PG (27-31); MCHC 34.3 g/dL (33-37); MCV 88.1 FL (81-99); MPV 10.6 FL (7.4-10.4); RBC 3.77 XMIL (4.2-5.4)
[2016-07-30] MEDS: NEXIUM PACKET PO SCH (06:19)
[2016-07-30 06:37] LABS: AGAP 8; ALBUMIN 3.2 g/dL (3.5-5.0); ALKALINE PHOSPHATASE 62 U/L (32-104); BUN 14 mg/dL (8-22); CHLORIDE 102 mmol/L (98-107); COSMO 270; GOT 18 U/L (10-30); GPT 15 U/L (10-36); POTASSIUM 3.8 mmol/L (3.5-5.1); SODIUM 135 mmol/L (136-145); TCO2 25 mmol/L (25-35); TOTAL PROTEIN 5.7 g/dL (6.3-8.3)
[2016-07-30 07:22] LABS: INR 2.39 (0.86-1.15); PROTIME 26.1 Seconds (12.1-15.5)
--- NOTE | 2016-07-30 08:29 | PROGRESS NOTE ---
DATE: 07/30/2016 SUBJECTIVE: Patient is feeling better. She does not appear to be short of breath or having any cough. PHYSICAL EXAMINATION: Vital Signs: Reviewed and stable. Temperature 98 degrees, pulse 75, respiratory rate 16, BP 120/74, saturation 100% on room air. General: Patient is well developed, well nourished. She is currently in no respiratory distress. She is awake, alert. Neck: Supple. CV: Regular rate. Chest: Relatively clear. Good air movement. No wheezing. Abdomen: Soft. Extremities: Moves all extremities. Neurologic: No focal changes. Skin: Warm and dry. No rashes. Neurologic: The patient continues to be nonverbal. However, she is noted to easily ambulate throughout the gallo. When her friend showed up, she was clearly glad to see him and started smiling. ASSESSMENT: 1. Leukocytosis, resolved. 2. Acute ischemic cerebrovascular accident. 3. Aphasia, unchanged. 4. Dysphagia. Patient has recently passed a swallowing study and has been tolerating full liquids without any difficulty. We will continue to advance diet. 5. Hypercoagulable. Her INR is greater than 2. She is on Coumadin. PLAN: The patient is much improved. She will continue in the hospital until which time a rehab bed is available and then can be discharged to rehab. She will continue on clindamycin and Omnicef for 7 total days. We will continue Coumadin, Risperdal, and potassium.
[2016-07-30] MEDS ORDERED: ZITHROMAX PO SCH (09:00)
[2016-07-30] MEDS: ASPIRIN GT SCH (09:19)
[2016-07-30] MEDS: NICODERM PATCH TD SCH (09:19)
[2016-07-30] MEDS: RISPERDAL PO SCH (09:19)
[2016-07-30] MEDS: CORDARONE GT SCH (09:19)
[2016-07-30] MEDS: POTASSIUM CHLORIDE 20% LIQUID PO SCH (09:19)
[2016-07-30] MEDS: DIFLUCAN PO SCH (09:19)
--- NOTE | 2016-07-30 10:58 | DISCHARGE SUMMARY ---
ADMISSION DATE: 07/02/2016 DISCHARGE DATE: 07/30/2016 ADMISSION DIAGNOSES: 1. Altered mental status secondary to a transient ischemic attack versus a cerebrovascular accident versus metabolic encephalopathy. 2. Hyponatremia. DISCHARGE DIAGNOSES: 1. An acute ischemic cerebrovascular accident. 2. Dysphagia. 3. Aphagia. 4. Pneumonia. 5. Paroxysmal atrial fibrillation. SUMMARY OF FINDINGS: This is a 61-year-old female who has been in this facility for exactly 1 month today who presented initially with having difficulty walking leaning towards the left. When she arrived to the E.. she was very agitated. Neurological exam was nonfocal. Head CT showed extensive chronic changes as described but no definite acute intracranial pathology. MRI of the brain done on 07/03/2016 showed an acute temporoparietal infarct on the left. We did a carotid Doppler study on 07/04/2016 that showed extensive atherosclerotic disease throughout both carotid systems on grayscale images. However, by Doppler there are elevated velocities only in the proximal ICA and mid ICA suggesting a stenosis of between 40% and 59%. We did an echocardiogram on 07/04/2016 that showed an ejection fraction of 65% and normal left ventricular cavity size. We repeated a head CT on 07/05/2016 that showed interval development of a large left MCA distribution acute to early subacute infarct. This is the infarct that was also seen on a previous MRI dated 07/03/2016. Neurology saw her on 07/06/2016 and felt that she was being treated appropriately. On 07/04/2016 she was noted to have an increase in her heart rate and a rhythm change and we did an EKG that showed atrial fibrillation with RVR at 138 so she was transferred to the ICU and initially placed on a Cardizem drip and was eventually transitioned to Coumadin. She continued to have difficulty swallowing and refusing to open her mouth. We did a modified barium swallow on 07/14/2016 that at that time showed a small amount of thin barium aspirated during swallowing. It was discussed with the family about further options and they decided for PEG tube placement. The PEG tube was placed on 07/17/2016 at [facility] by Gastroenterology, Dr. Wyatt, without any incident and she was transferred back to [facility]. We began her tube feedings per his orders and she has tolerated these well. She is currently on Jevity at 40 mL/hr with 150 mL flush of water every 6 hours. EKG on 07/18/2016 showed sinus rhythm with some PACs at 82. She has had physical therapy and has been ambulating in the hallway on the medical unit. She has shown signs of improvement of being more alert and oriented so we repeated her modified barium swallow on 07/28/2016 and that was reported that she swallowed the barium without any difficulty, no aspiration during the exam, and no abnormality was identified. We started the patient on some clear liquids and have advanced her up to a pureed diet as well as continuing the Jevity as we are not sure at this time that she can nutritionally keep up her calories needed through oral intake but feel that since she is going to rehab today that they will be able to work with her to progress and eventually discontinue the PEG tube feedings. We checked a chest x-ray on 07/29/2016 as she had a jump in her white blood cell count and that chest x-ray showed that she had a small right lower lobe infiltrate so she was started on antibiotics. Her white cell count today is back to normal limits at 7.30. She was noted on 07/28/2016 to have an increase in her INR at 3.68. Her Coumadin has been held for the last 2 days. Today on 07/30/2016 her INR is back to 2.39 so it is felt that we can restart her Coumadin tonight and she will need a PT and INR in 3 days; hold if her Coumadin INR is greater than 3, and it is felt that at this time she can safely be discharged to rehab today. DISCHARGE MEDICATIONS: Lipitor 10 mg p.o. at bedtime, Tylenol 650 mg rectally every 4-6 hours p.r.n., amiodarone 400 mg per tube daily, aspirin 81 mg per tube daily, Omnicef 300 mg b.i.d. for 7 days, clindamycin 300 mg every 6 hours for 7 days, Nexium 40 mg p.o. daily, Diflucan 100 mg p.o. daily times 7 days, Ativan 0.5 mg p.o. b.i.d. p.r.n., Nicotine patch 14 mg transdermally daily, Zofran 4 mg p.o. every 4 hours p.r.n., potassium chloride liquid 40 mEq p.o. daily, Risperdal liquid 1 mg p.o. b.i.d., and Coumadin 5 mg per tube at bedtime. FOLLOW UP: She will follow up with her primary care physician upon completion of her rehab. This is the dictation on 35 minute discharge for Dayna Rodriguez. This is FRANCIE Mo dictating for Dr. Leal. Dictated by FRANCIE Mo for Abrahan Leal MD
[2016-07-30 12:31] VITALS: BP 126/57
== END 2016-07-30 13:09 | DRG 64 ==
LOC: P.ED 13:30 → P.MEDSURG 18:13 → P.ICU 07-04 09:24 → P.MEDSURG 07-19 17:41
PROVIDERS: ATTEND Family Medicine
PROC: 3E0336Z Introduction of Nutritional Substance into Peripheral Vein, Percutaneous Approach (ICD-10-PCS; 2016-07-04)
PROC: 02HV33Z Insertion of Infusion Device into Superior Vena Cava, Percutaneous Approach (ICD-10-PCS; 2016-07-13)
PROC: 0DH63UZ Insertion of Feeding Device into Stomach, Percutaneous Approach (ICD-10-PCS; principal; 2016-07-16 13:13)
DX: I63.9 Cerebral infarction, unspecified (principal); J18.9 Pneumonia, unspecified organism; E43 Unspecified severe protein-calorie malnutrition; I95.9 Hypotension, unspecified; G81.91 Hemiplegia, unspecified affecting right dominant side; E87.1 Hypo-osmolality and hyponatremia; R47.01 Aphasia; F01.50 Vascular dementia, unspecified severity, without behavioral disturbance, psychotic disturbance, mood disturbance, and anxiety; E83.42 Hypomagnesemia; N39.0 Urinary tract infection, site not specified; I48.0 Paroxysmal atrial fibrillation; R47.1 Dysarthria and anarthria; R13.10 Dysphagia, unspecified; R73.9 Hyperglycemia, unspecified; J44.9 Chronic obstructive pulmonary disease, unspecified; I10 Essential (primary) hypertension; E78.5 Hyperlipidemia, unspecified; E87.6 Hypokalemia; R79.1 Abnormal coagulation profile; K29.80 Duodenitis without bleeding; F41.9 Anxiety disorder, unspecified; F17.210 Nicotine dependence, cigarettes, uncomplicated; Z68.20 Body mass index [BMI] 20.0-20.9, adult; Z80.49 Family history of malignant neoplasm of other genital organs
CPT/HCPCS: 36415; 36569; 70450; 70551; 71010; 71020; 74230; 80048; 80053; 80061; 80305; 81001; 82040; 82140; 82550; 82607; 82746; 82805; 82948; 83605; 83735; 83935; 84100; 84300; 84443; 84484; 85025; 85027; 85610; 85651; 85730; 87040; 87077; 87088; 87186; 87324; 87338; 93005; 93010; 93306; 93880; 94640; 94760; 94761; 96372; 96374; C9113; G0480; J0282; J0360; J0690; J0694; J0696; J1160; J1200; J1630; J1642; J1650; J1940; J2060; J2270; J2370; J3475; J3480; J3486; J7030; J7040; J7050; 80320; 92610-GN; 92611-GN; 97110-GP; 97112-GP; 97116-GP; 97140-GO; 97530-GO; 97530-GP; S0030; S0164

== ENCOUNTER 2016-08-15 23:42 | Inpatient (IN) ==
[~2016-08-15 23:42] MED LIST: DUONEB (A & A) ONE; NS 1,000 ML ONE
[2016-08-16] MEDS ORDERED: LASIX IV ONE (00:38)
[2016-08-16] MEDS ORDERED: ROCEPHIN 1 GM/NS 1 GM/50 ML IVPB ONE (00:46)
[2016-08-16 02:01] LABS: MANUAL DIFF NEEDED? NO
[2016-08-16 02:20] LABS: AGAP 14; BUN 21 mg/dL (8-22); CHLORIDE 100 mmol/L (98-107); COSMO 282; SODIUM 138 mmol/L (136-145); TCO2 24 mmol/L (25-35)
[2016-08-16 02:21] LABS: ALBUMIN 3.3 g/dL (3.5-5.0); ALKALINE PHOSPHATASE 68 U/L (32-104); CALCIUM 8.1 mg/dL (8.8-10.2); GOT 18 U/L (10-30); GPT 22 U/L (10-36); TOTAL BILIRUBIN 0.28 mg/dL (0.20-1.00)
[2016-08-16 02:22] LABS: BASO% 0.1 % (0.0-0.8); HEMATOCRIT 32.3 % (37.0-47.0); HEMOGLOBIN 10.9 g/dL (12.0-16.0); LYMPH% 3.2 % (20.5-51.1); MCH 31.8 PG (27-31); MCHC 33.7 g/dL (33-37); MCV 94.2 FL (81-99); MONO% 8.3 % (1.7-9.3); MPV 11.5 FL (7.4-10.4); NEUT% 88.2 % (42.2-75.2); PLT 187 X1000 (130-400); RBC 3.43 XMIL (4.2-5.4)
[2016-08-16 02:23] LABS: IMM GRAN# 0.03 X1000 (0.0-0.04); IMM GRAN% 0.2 % (0.0-0.5); LYMPH# 0.44 X1000 (1.2-3.4); MONO# 1.15 X1000 (0.11-0.59)
[2016-08-16] MEDS ORDERED: ZOFRAN IV PRN (02:30)
[2016-08-16] MEDS ORDERED: NS 1,000 ML IV SCH (03:00)
[2016-08-16 03:40] LABS: HEMOGLOBIN A1C 5.3 % (4.8-6.0)
--- NOTE | 2016-08-16 03:50 | HISTORY AND PHYSICAL ---
CHIEF COMPLAINT: Decreased level of consciousness and shortness of breath. HISTORY OF PRESENT ILLNESS: This is a 61-year-old, female who recently had a CVA. She apparently has a past medical history of dementia and paroxysmal atrial fibrillation. The last CVA that she had left her with dysphagia and aphasia. She has a PEG tube and resides at [facility]. She is unable to provide any medical history. She does have a family friend at the bedside. He is also really unable to give any history. From what we understood, she became less responsive at the [facility] and was noted there as being hypoxic, and was sent over to the emergency room. A chest x-ray showed a left lower lobe effusion, cannot rule out a left lower lobe infiltrate. Laboratory data did show a mildly elevated white blood cell count of 13.82. The patient will be placed on the medical floor for further evaluation and treatment. PAST MEDICAL HISTORY: 1. Dementia. 2. Paroxysmal atrial fibrillation. 3. CVA with aphasia and dysphagia. 4. Cervical cancer. 5. MRSA infection of the lung. SURGICAL HISTORY: She has had a D and C and LEEP. ALLERGIES: No known drug allergies. FAMILY HISTORY: Unable to obtain. She reportedly has a daughter and son. The family friend states that they have no medical illnesses he is aware of. SOCIAL HISTORY: According to the friend at bedside, she was a two 6 pack of beer drinker daily and smoked 1-2 packs of cigarettes per day up until the current CVA which rendered her unable to do this. No mention of illicit drug use or abuse. REVIEW OF SYSTEMS: This was unobtainable related to her medical condition. PHYSICAL EXAMINATION: VITAL SIGNS: Temperature 97.7 degrees, pulse 71, respirations 18, blood pressure 125/75, oxygen saturation 95% on 4 L nasal cannula. GENERAL: An unfortunate, 61-year-old, female lying on the ER stretcher, able to move all extremities but was noted to have aphasia and is nonverbal. HEENT: Head is atraumatic, normocephalic. Pupils equal, round, reactive to light. Extraocular eye movement intact. Otherwise normal ENT assessment. Oral mucosa is moist. NECK: Supple. No JVD. No thyromegaly. Trachea is midline. CARDIAC: Irregularly irregular. No murmurs, gallops, rubs. LUNGS: Decreased bilaterally, left greater than right. Otherwise clear to auscultation. No rhonchi, wheezes, or rales. Symmetrical rise and fall with respirations. ABDOMEN: Soft, nondistended, nontender. Bowel sounds present in all 4 quadrants, normoactive. No pulsatile mass. No organomegaly. EXTREMITIES: No clubbing, cyanosis, or edema. There are 2+ pedal pulses. NEUROLOGICAL: The patient has noted aphasia related to CVA. Is able to move all extremities. Unable to test full scope of cranial nerves or test if patient is alert and oriented. DIAGNOSTIC DATA: Chest x-ray shows a left lower lobe effusion. I cannot rule out left lower lobe infiltrate. LABORATORY DATA: WBC 13.82, hemoglobin 10.9, hematocrit 32.3, platelet count 187,000. Sodium 138, potassium 4, chloride 100, carbon dioxide 24, BUN 21, creatinine 0.5, glucose 152. Urine culture is pending. HOME MEDICATIONS: A list was unobtainable at this time. Nursing to reconcile in computer. ASSESSMENT AND PLAN: 1. Left lower lobe effusion. We will give Lasix 40 mg intravenous now. We will repeat chest x- ray. The patient also has dysphagia and has a percutaneous endoscopic gastrostomy tube. Cannot rule out aspiration pneumonia. We will cover with Zosyn 3.375 intravenous. 2. Possible aspiration pneumonia. As noted above, we will give Zosyn. 3. Previous cerebrovascular accident with aphasia and dysphagia, with a percutaneous endoscopic gastrostomy tube. 4. Paroxysmal atrial fibrillation. We will continue patient's amiodarone. At this point, we will only give aspirin. 5. Paroxysmal atrial fibrillation. We will continue amiodarone and aspirin 81 mg at this time. We will check PT and INR. It is possible that the patient is taking Coumadin. Again, nursing will reconcile home medications and this can be continued tomorrow if the patient is indeed on Coumadin treatment. 6. Hyperglycemia. No noted diagnosis of diabetes mellitus. We will check hemoglobin A1c. Further recommendations per patient's clinical course. Dictated by FRANCIE Gomes for Ayana Thompson MD cc: FRANCIE Gomes MD
[2016-08-16 05:09] LABS: BLOOD TYPE ARTERIAL; PCO2(98.6) 41 mmHg (35-45); PO2(98.6) 74 mmHg (60-100); SAMPLE BLOOD; pH(98.6) 7.43 (7.35-7.45)
[2016-08-16 05:10] LABS: ALLEN TEST YES; BE 2.6 mmoll (-3.0-3.0); DRAW SITE R RADIAL; METHB 1.9 % (0.0-1.5); MODALITY NRB; O2(CT) 14.2 mL/dL (15.0-23.0); THB 10.7 g/dL (11.5-17.4)
[2016-08-16 05:40] LABS: ALLEN TEST YES; BLOOD TYPE ARTERIAL; DRAW SITE R RADIAL; METHB 1.6 % (0.0-1.5); O2(CT) 14.7 mL/dL (15.0-23.0); PCO2(98.6) 40 mmHg (35-45); PO2(98.6) 69 mmHg (60-100); SAMPLE BLOOD; SAO2 97.7 % (95.0-100.0); THB 11.1 g/dL (11.5-17.4); pH(98.6) 7.47 (7.35-7.45)
[2016-08-16 05:41] LABS: MODALITY CANNULA
[2016-08-16] MEDS: PROTONIX IV SCH (06:27)
[2016-08-16] MEDS: SODIUM CHLORIDE 0.9% INJ SCH (06:27)
[2016-08-16 06:39] LABS: URINE CULTURE NEEDED? NO; URINE MICRO REVIEW NEEDED? NO; URINE SOURCE CATH
[2016-08-16 06:42] LABS: BILIRUBIN URINE NEGATIVE (NEGATIVE); BLOOD URINE NEGATIVE (NEGATIVE); COLOR YELLOW; GLUCOSE URINE NEGATIVE (NEGATIVE); LEUKOCYTES URINE NEGATIVE (NEGATIVE); NITRITE URINE NEGATIVE (NEGATIVE); PROTEIN URINE NEGATIVE (NEGATIVE); TURBIDITY URINE CLEAR (CLEAR); UROBILINOGEN URINE NORMAL (NORMAL)
[2016-08-16 06:43] LABS: UR EPITHELIAL CELLS <10 /HPF (<10); URINE BACTERIA NEGATIVE /HPF; URINE RBC <10 /HPF (<10); URINE WBC <10 /HPF (<10)
[2016-08-16] MEDS ORDERED: HALDOL IV ONE (07:58)
[2016-08-16 08:10] LABS: INR 2.09
[2016-08-16] MEDS: ZOSYN 3.375 GM/NS 3.375 GM/50 ML IVPB IV SCH ×3 (10:11→20:56)
[2016-08-16] MEDS: ASPIRIN GT SCH (10:11)
[2016-08-16] MEDS: CORDARONE GT SCH (10:12)
[2016-08-16] MEDS: NICODERM PATCH TD SCH (10:13)
[2016-08-16] MEDS ORDERED: STERILE WATER INJ. INJ PRN (10:33)
--- NOTE | 2016-08-16 11:37 | Diag Imaging Result Document ---
PROCEDURE NAME: CHEST-PORTABLE - 08/15/2016 ERECT AP PORTABLE CHEST: DATE AND TIME: 08/15/2016 at 21:50 hours. FINDINGS: There are coarse opacities in both lower lobes particularly the left lower lobe as well as in the lingula. The heart size is at the upper limits of normal. There are no previous studies available for comparison. IMPRESSION: Lingular and left lower lobe pneumonia. The possibility of mild interstitial pulmonary edema cannot be excluded.
[2016-08-16] MEDS: GEODON IM PRN ×2 (11:38→22:53)
[2016-08-16] MEDS: LIPITOR PO SCH (20:56)
[2016-08-17] MEDS: ZOSYN 3.375 GM/NS 3.375 GM/50 ML IVPB IV SCH ×5 (04:54→19:46)
[2016-08-17] MEDS: PROTONIX IV SCH (05:10)
[2016-08-17] MEDS: GEODON IM PRN ×2 (05:10→19:45)
[2016-08-17 06:51] LABS: MANUAL DIFF NEEDED? NO
[2016-08-17 06:58] LABS: BASO% 0.5 % (0.0-0.8); EOS% 3.5 % (0.0-10.0); HEMATOCRIT 30.9 % (37.0-47.0); HEMOGLOBIN 10.2 g/dL (12.0-16.0); IMM GRAN# 0.02 X1000 (0.0-0.04); IMM GRAN% 0.2 % (0.0-0.5); LYMPH# 0.73 X1000 (1.2-3.4); LYMPH% 8.5 % (20.5-51.1); MCH 31.2 PG (27-31); MCV 94.5 FL (81-99); MONO# 1.03 X1000 (0.11-0.59); MONO% 11.9 % (1.7-9.3); MPV 11.4 FL (7.4-10.4); NEUT% 75.4 % (42.2-75.2); PLT 176 X1000 (130-400); RBC 3.27 XMIL (4.2-5.4)
[2016-08-17 07:11] LABS: INR 1.26; PROTIME 13.4 Seconds (9.2-11.7)
[2016-08-17 07:14] LABS: AGAP 10; BUN 16 mg/dL (8-22); CALCIUM 8.1 mg/dL (8.8-10.2); CHLORIDE 102 mmol/L (98-107); COSMO 281; POTASSIUM 3.4 mmol/L (3.5-5.1); SODIUM 140 mmol/L (136-145); TCO2 28 mmol/L (25-35)
--- NOTE | 2016-08-17 08:13 | Diag Imaging Result Document ---
PROCEDURE NAME: CHEST-PORTABLE - 08/17/2016 AP PORTABLE CHEST ERECT, 08/17/2016 AT 0540 HOURS: FINDINGS: There is worsening pulmonary edema compared to 08/15/2016. There has been some improvement with respect to the left base however since the previous study. IMPRESSION: Pulmonary edema. Slight improvement in atelectasis in the left base.
[2016-08-17] MEDS: NICODERM PATCH TD SCH (11:11)
[2016-08-17] MEDS: CORDARONE GT SCH (11:11)
[2016-08-17] MEDS: ASPIRIN GT SCH (11:11)
--- NOTE | 2016-08-17 11:34 | EKG Report ---
Test Performed on : 08/15/2016 9:20:47 PM Test Reason : SOB Blood Pressure : / mmHG Vent. Rate : 084 BPM Atrial Rate : 084 BPM P-R Int : 148 ms QRS Dur : 094 ms QT Int : 410 ms P-R-T Axes : 090 038 062 degrees QTc Int : 484 ms Normal sinus rhythm. Nonspecific ST abnormality Abnormal ECG No previous ECGs available Unconfirmed Result
[2016-08-17] MEDS ORDERED: DUONEB (A & A) INH PRN (12:50)
[2016-08-17] MEDS: LASIX IV SCH ×3 (15:32→21:22)
[2016-08-17] MEDS: DUONEB (A & A) INH SCH ×3 (16:00→22:49)
[2016-08-17] MEDS ORDERED: ATIVAN GT PRN (16:10)
--- NOTE | 2016-08-17 16:47 | PROGRESS NOTE ---
DATE: 08/17/2016 SUBJECTIVE: Patient is nonverbal because of a stroke. Her who is at bedside reports that she is feeling fine. OBJECTIVE: Vital Signs: Temperature 97.3 degrees, heart rate 58, blood pressure 114/50, O2 saturation 97% on 5 L nasal cannula. General Examination: This is a 61-year-old, female, lying in bed, in no acute distress. HEENT: Head is normocephalic, atraumatic. Anicteric sclerae. Pale conjunctivae. Mucous membranes moist. Neck: Supple. No JVD noted. No carotid bruits. No lymphadenopathy. No thyromegaly. Cardiovascular: S1, S2 heard. Irregularly irregular. No murmurs, gallops, or rubs. Respiratory: Globally decreased breath sounds but left greater than right. No rhonchi, no wheezing, no rales. Patient is not using any accessory muscles or having work of breathing. Abdomen: Soft, nontender to palpation. Bowel sounds present. No organomegaly. Extremities: No clubbing, cyanosis, or edema. There are peripheral pulses present in both legs. Neurological Examination: Patient has expressive aphasia related to CVA but able to move 4 extremities. LABORATORY DATA: White cell count 8.62, hemoglobin 10.2, hematocrit 30.9, platelets 176,000. BMP unremarkable. ASSESSMENT AND PLAN: 1. Left lower lobe pneumonia. 2. Pulmonary edema. 3. History of cerebrovascular accident. 4. Paroxysmal atrial fibrillation. 5. Status post PEG tube placement. PLAN: Patient admitted to the hospital for difficulty breathing and less responsiveness. Patient was evaluated in the ER and was found to have pulmonary edema. We also suspect aspiration pneumonia as well. Patient currently is on Lasix 40 mg IV q.12 hours. Also, she is on Zosyn for possible aspiration pneumonia. At this time we are going to continue with the same antibiotic management. For paroxysmal atrial fibrillation we will continue with warfarin and for rule out diabetes. Hemoglobin A1c is normal. We have consulted dietitian to restart PEG tube feeding. cc: Ernesto Lucas MD
[2016-08-17] MEDS ORDERED: LACTOSE REDUCED FOOD GT SCH (18:00)
[2016-08-17] MEDS ORDERED: FIBER GT SCH (18:00)
[2016-08-17] MEDS ORDERED: CARDIZEM IV ONE (19:34)
[2016-08-17] MEDS: DESYREL GT SCH ×2 (19:46→21:22)
[2016-08-17] MEDS: COUMADIN GT SCH ×2 (19:46→21:22)
[2016-08-17] MEDS: DEPAKOTE SPRINKLE GT SCH ×2 (19:46→21:22)
[2016-08-17] MEDS: LIPITOR PO SCH ×2 (19:46→21:23)
[2016-08-18] MEDS ORDERED: PHENOBARBITAL IV ONE (01:23)
[2016-08-18] MEDS ORDERED: CARDIZEM IV ONE (01:23)
[2016-08-18] MEDS ORDERED: BENADRYL IV ONE (01:23)
[2016-08-18 01:42] LABS: ALLEN TEST YES; BE 8.3 mmoll (-3.0-3.0); BLOOD TYPE ARTERIAL; DRAW SITE R RADIAL; METHB 1.8 % (0.0-1.5); MODALITY CANNULA; O2(CT) 15.7 mL/dL (15.0-23.0); PCO2(98.6) 39 mmHg (35-45); PO2(98.6) 53 mmHg (60-100); SAMPLE BLOOD; SAO2 94.4 % (95.0-100.0); THB 12.4 g/dL (11.5-17.4); pH(98.6) 7.52 (7.35-7.45)
[2016-08-18] MEDS: ZOSYN 3.375 GM/NS 3.375 GM/50 ML IVPB IV SCH ×3 (01:53→16:44)
[2016-08-18] MEDS: DUONEB (A & A) INH SCH ×6 (02:30→23:09)
[2016-08-18 07:48] LABS: INR 1.11; PROTIME 11.7 Seconds (9.2-11.7)
[2016-08-18 08:36] LABS: MANUAL DIFF NEEDED? NO
[2016-08-18 08:41] LABS: BASO% 0.5 % (0.0-0.8); EOS# 0.25 X1000 (0.0-0.7); EOS% 2.9 % (0.0-10.0); HEMATOCRIT 35.3 % (37.0-47.0); IMM GRAN# 0.02 X1000 (0.0-0.04); IMM GRAN% 0.2 % (0.0-0.5); LYMPH# 1.09 X1000 (1.2-3.4); LYMPH% 12.5 % (20.5-51.1); MCH 31.6 PG (27-31); MCV 92.9 FL (81-99); MONO# 0.99 X1000 (0.11-0.59); MONO% 11.3 % (1.7-9.3); MPV 11.3 FL (7.4-10.4); NEUT% 72.6 % (42.2-75.2); PLT 226 X1000 (130-400)
[2016-08-18 08:59] LABS: AGAP 15; ALBUMIN 3.1 g/dL (3.5-5.0); ALKALINE PHOSPHATASE 70 U/L (32-104); BUN 14 mg/dL (8-22); CALCIUM 8.2 mg/dL (8.8-10.2); CHLORIDE 96 mmol/L (98-107); COSMO 278; GOT 14 U/L (10-30); GPT 16 U/L (10-36); POTASSIUM 3.3 mmol/L (3.5-5.1); SODIUM 139 mmol/L (136-145); TCO2 28 mmol/L (25-35); TOTAL BILIRUBIN 0.47 mg/dL (0.20-1.00); TOTAL PROTEIN 5.4 g/dL (6.3-8.3)
[2016-08-18] MEDS: CELEXA GT SCH (09:22)
[2016-08-18] MEDS: DEPAKOTE SPRINKLE GT SCH ×2 (09:22→20:16)
[2016-08-18] MEDS: PROTONIX IV SCH (09:23)
[2016-08-18] MEDS: SODIUM CHLORIDE 0.9% INJ SCH (09:23)
[2016-08-18] MEDS: CORDARONE GT SCH (09:23)
[2016-08-18] MEDS: ASPIRIN GT SCH (09:23)
[2016-08-18] MEDS: LASIX IV SCH ×2 (09:23→20:16)
[2016-08-18] MEDS: NICODERM PATCH TD SCH (09:23)
[2016-08-18] MEDS ORDERED: POTASSIUM CHLORIDE 20% LIQUID PO ONE (11:22)
--- NOTE | 2016-08-18 13:08 | Diag Imaging Result Document ---
PROCEDURE NAME: CHEST-PORTABLE - 08/18/2016 PORTABLE CHEST: COMPARISON: 08/17/2016. FINDINGS: There has been overall mild improvement in pulmonary edema. There are persistent alveolar infiltrates or edema at the bilateral bases. There are possible small bilateral pleural effusions. There is no pneumothorax seen. There are apparent COPD changes. IMPRESSION: Mild improvement in pulmonary edema compared to prior. There are persistent alveolar infiltrates or edema at the bilateral bases.
--- NOTE | 2016-08-18 14:12 | PROGRESS NOTE ---
DATE: 08/18/2016 SUBJECTIVE: This patient is trying to communicate, but we cannot understand what she said. Apparently this patient has been nonverbal because of a stroke. No family member is at the bedside at this moment. She does not look in distress. She is not having work of breathing or using any accessory muscle to be able to breathe. OBJECTIVE: Vital signs: Temperature 97.9, pulse 63, respiratory rate 18, blood pressure 120/60, oxygen saturation 95 on 4 liters of nasal cannula. HEENT: Head normocephalic. No trauma . PERRLA. Neck: Supple. No JVD. No masses. Central trachea. Cardiovascular: Irregularly irregular rhythm. No murmurs. Chest: Decreased breath sounds globally mostly at the left lower side with rhonchi as well. Abdomen: Soft, nontender, nondistended. No hepatosplenomegaly. Extremities: No edema. No clubbing. No cyanosis. Neurological examination: This patient is alert, but probably she has aphasia related to a CVA. She is able to move all four extremities, but she is not following commands either. LABORATORY: WBC 8.7, hemoglobin 12, hematocrit 35.3, platelets 226, sodium 139, potassium 3.3, chloride 96, bicarbonate 28, BUN 14, creatinine 0.5, glucose 99, calcium 8.2, albumin 3.1. ASSESSMENT AND PLAN: 1. Left lower lobe pneumonia. Will continue with current antibiotics. She is on Zosyn. It looks like she is getting better. 2. Pulmonary edema. I will continue with Lasix, but I will decrease the dose from 40 IV b.i.d. to 40 IV daily and I will continue to monitor. 3. History of cerebrovascular accident. Aware. Probably this patient has aphasia secondary to this. 4. Paroxysmal atrial fibrillation. Will continue with Warfarin, and we will monitor the INR. 5. Status post percutaneous endoscopic gastrostomy tube placement. She is getting feedings through the percutaneous endoscopic gastrostomy tube, and she is tolerating that. 6. Hypokalemia. I would replace the potassium today. cc: Sam Bailey MD
[2016-08-18] MEDS: DESYREL GT SCH (20:15)
[2016-08-18] MEDS: LIPITOR PO SCH (20:15)
[2016-08-18] MEDS: COUMADIN GT SCH (20:16)
[2016-08-18] MEDS: PHENOBARBITAL IV PRN (20:16)
[2016-08-19] MEDS: ZOSYN 3.375 GM/NS 3.375 GM/50 ML IVPB IV SCH ×4 (02:22→20:53)
[2016-08-19] MEDS: PHENOBARBITAL IV PRN (02:22)
[2016-08-19] MEDS: DUONEB (A & A) INH SCH ×6 (03:08→22:50)
[2016-08-19] MEDS: GEODON IM PRN ×2 (03:53→20:52)
[2016-08-19 07:10] LABS: MANUAL DIFF NEEDED? NO
[2016-08-19 07:13] LABS: BASO% 0.7 % (0.0-0.8); EOS# 0.34 X1000 (0.0-0.7); EOS% 4.5 % (0.0-10.0); HEMATOCRIT 34.9 % (37.0-47.0); HEMOGLOBIN 11.9 g/dL (12.0-16.0); IMM GRAN# 0.02 X1000 (0.0-0.04); IMM GRAN% 0.3 % (0.0-0.5); LYMPH# 1.18 X1000 (1.2-3.4); LYMPH% 15.6 % (20.5-51.1); MCH 31.5 PG (27-31); MCHC 34.1 g/dL (33-37); MCV 92.3 FL (81-99); MONO# 1.13 X1000 (0.11-0.59); MONO% 14.9 % (1.7-9.3); MPV 10.7 FL (7.4-10.4); PLT 248 X1000 (130-400); RBC 3.78 XMIL (4.2-5.4)
[2016-08-19 07:42] LABS: AGAP 12; BUN 14 mg/dL (8-22); CALCIUM 8.8 mg/dL (8.8-10.2); CHLORIDE 98 mmol/L (98-107); COSMO 278; POTASSIUM 3.4 mmol/L (3.5-5.1); SODIUM 139 mmol/L (136-145); TCO2 29 mmol/L (25-35)
--- NOTE | 2016-08-19 07:42 | Diag Imaging Result Document ---
PROCEDURE NAME: CHEST-PORTABLE - 08/19/2016 SINGLE FRONTAL RADIOGRAPH OF THE CHEST: COMPARISON: 08/18/2016. FINDINGS: Pulmonary edema continues to improve. There is persistent mild linear density at the left lung base that likely represents residual atelectasis. There is stable scarring at the right lung apex. No new consolidations are identified. Cardiac silhouette is stable. IMPRESSION: Interval improvement of pulmonary edema.
[2016-08-19] MEDS ORDERED: POTASSIUM CHLORIDE 20% LIQUID PO ONE (07:51)
[2016-08-19 08:02] LABS: INR 1.59; PROTIME 17.2 Seconds (9.2-11.7)
[2016-08-19] MEDS: NICODERM PATCH TD SCH (09:44)
[2016-08-19] MEDS: PROTONIX IV SCH (09:44)
[2016-08-19] MEDS: SODIUM CHLORIDE 0.9% INJ SCH (09:44)
[2016-08-19] MEDS: LASIX IV SCH (09:44)
[2016-08-19] MEDS: ASPIRIN GT SCH (09:45)
[2016-08-19] MEDS: DEPAKOTE SPRINKLE GT SCH ×2 (09:45→20:54)
[2016-08-19] MEDS: CORDARONE GT SCH (09:45)
[2016-08-19] MEDS: CELEXA GT SCH (09:45)
--- NOTE | 2016-08-19 15:29 | PROGRESS NOTE ---
DATE: 08/19/2016 SUBJECTIVE: This patient has a past medical history of a stroke, and she has some kind of aphasia. She is trying to communicate, but it is really hard to understand what she said. Today, I talked to the son, and he states that this is basically her baseline. This patient is getting better. Hopefully, tomorrow, I will be able to discharge her and send her back to [facility]. OBJECTIVE: Vital Signs: Temperature 97.8 degrees, pulse 52, respiratory rate 14, blood pressure 109/54, oxygen saturation 97% on 2 L of nasal cannula. HEENT: Head normocephalic. No trauma. PERRLA. Neck supple. No JVD. No masses. Central trachea. Cardiovascular: Irregularly irregular rhythm. No murmurs. Chest: Decreased breath sounds globally, mostly at the level of the left lower side with rhonchi as well. Abdomen is soft, nontender, nondistended. No hepatosplenomegaly. Extremities No edema. No clubbing. No cyanosis. Neurological: The patient is alert. She has aphasia related to a previous CVA. She is able to move all 4 extremities, but she is not following commands. LABORATORY: WBC 7.5, hemoglobin 11.9, hematocrit 34.9, platelet 248,000. Sodium 139, potassium 3.4, chloride 98, bicarbonate 29. BUN 14, creatinine 0.4, glucose 100. Calcium 8.8. ASSESSMENT AND PLAN: 1. Left lower lobe pneumonia. I will continue with the current antibiotics. She is on Zosyn. She is getting better. Hopefully, tomorrow, upon discharge I will stop the Zosyn and I will start p.o. antibiotics. 2. Pulmonary edema. We will continue with Lasix, but I will switch Lasix from IV to p.o., she will get 40 p.o. daily. Upon discharge, probably, I will put this patient on 20 p.o. daily and follow up with her primary care doctor. 3. History of cerebrovascular accident, aware. Probably, this patient has aphasia secondary to this. 4. Paroxysmal atrial fibrillation. Continue with warfarin, and we will continue monitoring the INR. 5. Status post PEG tube. She is getting feeding through the PEG tube, and she is tolerating that. 6. Hypokalemia. I will replace the potassium today again. cc: Sam Bailey MD
[2016-08-19] MEDS: ATIVAN IV PRN (17:56)
[2016-08-19] MEDS: COUMADIN GT SCH (20:54)
[2016-08-19] MEDS: DESYREL GT SCH (20:54)
[2016-08-19] MEDS: LIPITOR PO SCH (20:54)
[2016-08-20] MEDS: ZOSYN 3.375 GM/NS 3.375 GM/50 ML IVPB IV SCH ×2 (02:39→12:03)
[2016-08-20] MEDS: ATIVAN IV PRN (03:47)
[2016-08-20] MEDS: DUONEB (A & A) INH SCH ×3 (04:24→11:22)
[2016-08-20 07:00] LABS: MANUAL DIFF NEEDED? NO
[2016-08-20 07:13] LABS: BASO% 0.9 % (0.0-0.8); EOS# 0.45 X1000 (0.0-0.7); EOS% 5.9 % (0.0-10.0); HEMATOCRIT 34.8 % (37.0-47.0); HEMOGLOBIN 11.6 g/dL (12.0-16.0); IMM GRAN# 0.04 X1000 (0.0-0.04); IMM GRAN% 0.5 % (0.0-0.5); LYMPH# 0.98 X1000 (1.2-3.4); LYMPH% 12.9 % (20.5-51.1); MCH 30.7 PG (27-31); MCHC 33.3 g/dL (33-37); MCV 92.1 FL (81-99); MONO# 1.11 X1000 (0.11-0.59); MONO% 14.6 % (1.7-9.3); MPV 10.8 FL (7.4-10.4); NEUT% 65.2 % (42.2-75.2); PLT 286 X1000 (130-400); RBC 3.78 XMIL (4.2-5.4)
[2016-08-20 07:21] LABS: INR 2.29; PROTIME 25.3 Seconds (9.2-11.7)
[2016-08-20 07:24] LABS: AGAP 13; BUN 19 mg/dL (8-22); CALCIUM 8.7 mg/dL (8.8-10.2); CHLORIDE 99 mmol/L (98-107); COSMO 283; POTASSIUM 3.5 mmol/L (3.5-5.1); SODIUM 141 mmol/L (136-145); TCO2 29 mmol/L (25-35)
[2016-08-20] MEDS ORDERED: LASIX PO SCH ×2 (09:00→10:51)
[2016-08-20] MEDS: SODIUM CHLORIDE 0.9% INJ SCH (12:03)
[2016-08-20] MEDS: NICODERM PATCH TD SCH (12:03)
[2016-08-20] MEDS: ASPIRIN GT SCH (12:03)
[2016-08-20] MEDS: CELEXA GT SCH (12:04)
[2016-08-20] MEDS: DEPAKOTE SPRINKLE GT SCH (12:04)
[2016-08-20] MEDS: CORDARONE GT SCH (12:04)
[2016-08-20] MEDS: PROTONIX IV SCH (12:04)
[2016-08-20] MEDS: GEODON IM PRN (20:34)
[2016-08-21] MEDS: DEPAKOTE SPRINKLE GT SCH ×2 (02:27→10:03)
[2016-08-21] MEDS: DESYREL GT SCH (02:27)
[2016-08-21] MEDS: AUGMENTIN PO SCH ×2 (02:27→10:03)
[2016-08-21] MEDS: COUMADIN GT SCH (02:27)
[2016-08-21] MEDS: LIPITOR PO SCH (02:28)
[2016-08-21] MEDS: SODIUM CHLORIDE 0.9% INJ SCH (10:01)
[2016-08-21] MEDS: PROTONIX IV SCH ×2 (10:01→10:05)
[2016-08-21] MEDS: ASPIRIN GT SCH (10:02)
[2016-08-21] MEDS: NICODERM PATCH TD SCH (10:02)
[2016-08-21] MEDS: CELEXA GT SCH (10:03)
[2016-08-21] MEDS: CORDARONE GT SCH (10:03)
--- NOTE | 2016-08-21 11:53 | DISCHARGE SUMMARY ---
ADMISSION DATE: 08/16/2016 DISCHARGE DATE: 08/21/2016 CONSULTATIONS: None. PERTINENT PROCEDURES: Chest x-ray showed lingular and left lower lobe pneumonia , possibility of interstitial and pulmonary edema cannot be excluded. Follow up chest x-ray on 08/19/2016 showed interval improvement of pulmonary edema. DISCHARGE DIAGNOSES: 1. Left lower lobe pneumonia. Continue with p.o. antibiotics. 2. Pulmonary edema. Continue with p.o. Lasix. 3. CVA history with aphasia and dysphagia status post PEG tube with Jevity tube feedings. 4. Paroxysmal atrial fibrillation. Continue with warfarin. Continue to monitor INR. 5. Status post PEG tube. Again, patient continues with Jevity. She has been tolerating that well throughout her hospital stay. HOSPITAL COURSE: Briefly, the patient is a 61-year-old female with a past medical history of CVA with aphasia and dysphagia status post PEG tube placement. Cervical cancer and MRSA lung infection in the past admitted for difficulty breathing and less responsiveness from the senior living. She was evaluated in the ED and found to have pulmonary edema with suspected aspiration pneumonia as well. She was placed on IV Lasix as well as IV Zosyn, and continued on her home warfarin for her proximal atrial fibrillation as well as dietary consultation for her PEG tube feedings. Clinically, the patient has improved. and son states that she is back at her baseline. Patient will go back to [facility] today with antibiotics per her PEG tube as well as continue with her PEG tube feedings and other home medications. Vital signs at time of her discharge, temperature is 97.7 degrees, heart rate 61, respirations 16, and O2 97% on 2 L nasal cannula. DISCHARGE DIET: The patient is NPO with PEG tube feedings of Jevity of 1.5 at 2 mL, 240 mL x 5, feeding with 100 mL flush per day to provide 1800 kcal, 77 g of protein, 912 mL of free water plus an additional 500 mL of H2O. She has been tolerating that well with no residuals. Last BM was for 08/18. DISCHARGE MEDICATIONS: As per Dr. De Jesus, please see MAR. FOLLOW UP: Patient is being discharged back to [facility] where she is a long- term resident. Patient can return to the ED for any worsening of symptoms. TIME SPENT: Discharge time 30 minutes. Dictated by FRANCIE Go for Sam Bailey MD cc: Sam Baiely MD MTDD
[2016-08-21 13:07] VITALS: BP 121/66
--- NOTE | 2016-08-24 02:42 | DISCHARGE SUMMARY ---
ADMISSION DATE: 08/16/2016 DISCHARGE DATE: 08/21/2016 ADDENDUM REPORT: The patient was set to be discharged on 08/20/2016; however, per care home request, they required a 24-hour restraint free. Patient has been restraint free for 24 hours. She will be discharged to [facility] where she will be transitioned to long-term care. No acute events overnight. No changes. This is Mariel Kumari doing an addendum for Dr. De Jesus. Dictated by FARNCIE Go for Sam Bailey MD cc: Sam Bailey MD
== END 2016-08-21 15:35 ==
LOC: ED 23:42 → 3N 08-16 01:28 → SUATTDRO 08-16 01:28 → 3N 08-16 02:01
PROVIDERS: ATTEND Internal Medicine

== ENCOUNTER 2017-01-14 11:49 | Inpatient (IN) ==
[2017-01-14 13:30] LABS: ALLEN TEST YES; BE 4.9 mmoll (-3.0-3.0); BLOOD TYPE ARTERIAL; DRAW SITE L RADIAL; MODALITY CANNULA; PCO2(98.6) 41 mmHg (35-45); PO2(98.6) 72 mmHg (60-100); SAMPLE BLOOD; SAO2 97.2 % (95.0-100.0); THB 9.8 g/dL (11.5-17.4); pH(98.6) 7.46 (7.35-7.45)
[2017-01-14 13:47] LABS: URINE CULTURE NEEDED? NO; URINE MICRO REVIEW NEEDED? NO; URINE SOURCE CATH
[2017-01-14 13:52] LABS: MANUAL DIFF NEEDED? NO
[2017-01-14 13:58] LABS: BASO% 0.5 % (0.0-0.8); EOS# 0.29 X1000 (0.0-0.7); EOS% 2.6 % (0.0-10.0); HEMATOCRIT 30.8 % (37.0-47.0); HEMOGLOBIN 10.3 g/dL (12.0-16.0); IMM GRAN# 0.04 X1000 (0.0-0.04); IMM GRAN% 0.4 % (0.0-0.5); LYMPH# 0.85 X1000 (1.2-3.4); LYMPH% 7.6 % (20.5-51.1); MCH 31.6 PG (27-31); MCHC 33.4 g/dL (33-37); MCV 94.5 FL (81-99); MONO# 1.28 X1000 (0.11-0.59); MONO% 11.5 % (1.7-9.3); NEUT% 77.4 % (42.2-75.2); PLT 297 X1000 (130-400); RBC 3.26 XMIL (4.2-5.4)
[2017-01-14 13:58] LABS: BILIRUBIN URINE NEGATIVE (NEGATIVE); BLOOD URINE NEGATIVE (NEGATIVE); COLOR YELLOW; GLUCOSE URINE NEGATIVE (NEGATIVE); LEUKOCYTES URINE NEGATIVE (NEGATIVE); NITRITE URINE NEGATIVE (NEGATIVE); PROTEIN URINE NEGATIVE (NEGATIVE); SP GRAVITY URINE 1.007; TURBIDITY URINE CLEAR (CLEAR); UROBILINOGEN URINE NORMAL (NORMAL)
[2017-01-14 14:00] LABS: UR EPITHELIAL CELLS <10 /HPF (<10); URINE BACTERIA NEGATIVE /HPF; URINE RBC <10 /HPF (<10); URINE WBC <10 /HPF (<10)
[2017-01-14 14:07] LABS: INR 2.06
[2017-01-14 14:14] LABS: PROTIME 22.7 Seconds (9.2-11.7); PTT 41.8 Seconds (22.0-36.0)
[2017-01-14 14:20] LABS: UR AMPHETAMINES QUAL NONE DETECTED (NONE DETECT); UR BARBITUATES QUAL NONE DETECTED (NONE DETECT); UR BENZODIAZEPIN QUAL NONE DETECTED (NONE DETECT); UR CANNABINOIDS QUAL NONE DETECTED (NONE DETECT); UR COCAINE QUAL NONE DETECTED (NONE DETECT); UR METHADONE QUAL NONE DETECTED (NONE DETECT); UR OPIATES QUAL NONE DETECTED (NONE DETECT); UR OXYCODONE QUAL NONE DETECTED (NONE DETECT); UR PCP QUAL NONE DETECTED (NONE DETECT)
--- NOTE | 2017-01-14 14:39 | Diag Imaging Result Doc PS360 ---
EXAM: CT HEAD W/O CONTRAST - 01/14/2017 HISTORY: AMS ed10 TECHNIQUE: Dose reduction protocol COMPARISON: 12/21/2016 FINDINGS: There is encephalomalacia from old right temporal occipital infarct similar to the previous exam. There is encephalomalacia from old left temporoparietal infarct similar to the previous exam. There are additional chronic ischemic changes in bilateral white matter. There is no indication of recent infarct, although acute infarcts may not be immediately visible. There is no evidence of intracranial hemorrhage, mass effect, or midline shift. There is no evidence of skull fracture. IMPRESSION: Extensive chronic ischemic changes similar to the previous exam. No visible acute process. No hemorrhage or mass effect. Electronically signed by Evan Irwin 01/14/2017 2:37 PM
--- NOTE | 2017-01-14 14:52 | Diag Imaging Result Doc PS360 ---
EXAM: CHEST-PORTABLE - 01/14/2017 HISTORY: AMS TECHNIQUE: Portable chest 1420 COMPARISON: 08/19/2016 FINDINGS: There is stable mild thyromegaly. There are bilateral interstitial opacities which are similar to the previous exam may relate to fibrosis and/or edema. There is been interval decrease in infiltrate or atelectasis at left base. There is no focal infiltrate or edema at the medial right base. There is no substantial pleural effusion or pneumothorax identified. IMPRESSION: Findings which may relate to congestive heart failure and/or right basilar pneumonia, possibly superimposed on pulmonary fibrosis. Electronically signed by Evan Irwin 01/14/2017 2:49 PM
[2017-01-14] MEDS ORDERED: ROCEPHIN 1 GM in NS 50 ML IV ONE (15:51)
[2017-01-14] MEDS ORDERED: ZITHROMAX 500 MG/NS 500 MG/250 ML IVPB IV ONE (15:51)
[2017-01-14 16:06] LABS: AGAP 11; ALBUMIN 2.6 g/dL (3.5-5.0); ALKALINE PHOSPHATASE 64 U/L (32-104); BUN 14 mg/dL (8-22); CALCIUM 8.1 mg/dL (8.8-10.2); CHLORIDE 91 mmol/L (98-107); COSMO 257; GOT 11 U/L (10-30); GPT 8 U/L (10-36); POTASSIUM 4.9 mmol/L (3.5-5.1); SODIUM 128 mmol/L (136-145); TCO2 26 mmol/L (25-35); TOTAL BILIRUBIN 0.28 mg/dL (0.20-1.00); TOTAL PROTEIN 5.2 g/dL (6.3-8.3)
[2017-01-14 16:08] LABS: CK PROFILE 179 U/L (24-173)
[2017-01-14 16:25] LABS: CK INDEX 2.5 (0.0-2.5); CK-MB 4.51 ng/mL (0.0-5.0)
--- NOTE | 2017-01-14 16:55 | Diag Imaging Result Doc PS360 ---
CT THORAX W/O CONTRAST - 01/14/2017 INDICATION: pneumonia TECHNIQUE: A CT dose reduction protocol was used. COMPARISON: Prior chest x-ray FINDINGS: There is a G-tube in good position. Small nonobstructing right renal stone measures 2 mm. There is anemia present. There is moderately advanced triple-vessel calcified coronary artery disease. Heart size is borderline enlarged. There is significant consolidation of both lower lobes. No significant effusions. There is advanced COPD. There is smooth intralobular septal thickening compatible with interstitial pulmonary edema. There are moderate degenerative changes of the spine. No acute or suspicious bony lesion. IMPRESSION: Cardiomegaly. Interstitial pulmonary edema. Extensive consolidation of both lower lobes most compatible with pneumonia or aspiration. Electronically signed by Leo Britt 01/14/2017 4:53 PM
[2017-01-14] MEDS ORDERED: VANCOMYCIN IV PER PHARMACY MISC SCH (18:00)
[2017-01-14] MEDS: PROTONIX IV SCH (18:30)
[2017-01-14] MEDS ORDERED: SODIUM CHLORIDE 0.9% 10 ML ONE (18:33)
[2017-01-14] MEDS: LASIX IV SCH (18:35)
[2017-01-14] MEDS: MAXIPIME 1 GM in NS 50 ML IV SCH (18:42)
[2017-01-14] MEDS: DUONEB (A & A) INH SCH ×2 (19:30→23:30)
[2017-01-14] MEDS ORDERED: ATIVAN IV ONE ×2 (20:44→23:50)
[2017-01-14] MEDS ORDERED: COUMADIN GT SCH (21:00)
[2017-01-14] MEDS ORDERED: VANCOMYCIN 1 GM/NS 1 GM/250 ML IVPB IV ONE (23:00)
[2017-01-15] MEDS: DEPAKOTE GT SCH ×2 (01:08→21:35)
[2017-01-15] MEDS: DUONEB (A & A) INH SCH ×6 (03:30→23:39)
[2017-01-15 05:30] LABS: ALLEN TEST YES; BE 6.1 mmoll (-3.0-3.0); BLOOD TYPE ARTERIAL; DRAW SITE R BRACHIAL; METHB 1.6 % (0.0-1.5); PCO2(98.6) 38 mmHg (35-45); SAMPLE BLOOD; SAO2 82.1 % (95.0-100.0); THB 11.8 g/dL (11.5-17.4)
[2017-01-15 05:32] LABS: PO2(98.6) 40 mmHg (60-100)
[2017-01-15 05:33] LABS: MODALITY CANNULA
[2017-01-15] MEDS: LASIX IV SCH ×2 (07:09→18:33)
[2017-01-15] MEDS: MAXIPIME 1 GM in NS 50 ML IV SCH ×2 (07:09→21:34)
--- NOTE | 2017-01-15 07:34 | Diag Imaging Result Doc PS360 ---
CHEST-PORTABLE - 01/15/2017 INDICATION: pulmonary edema TECHNIQUE: COMPARISON: 01/14/2017 FINDINGS: Stable mild cardiomegaly. There is stable interstitial infiltrates bilaterally suggesting mild pulmonary edema, with more confluent infiltrates in the lung bases. Heart size remains borderline enlarged. There is probably COPD. IMPRESSION: No change in the infiltrates suggesting pulmonary edema. Electronically signed by Leo Britt 01/15/2017 7:32 AM
[2017-01-15 08:34] LABS: INR 1.69; PROTIME 18.3 Seconds (9.2-11.7)
[2017-01-15] MEDS ORDERED: DEPAKOTE GT SCH (09:00)
--- NOTE | 2017-01-15 09:15 | Diag Imaging Result Doc PS360 ---
EXAM: MRI BRAIN W/O CONTRAST HISTORY: r/o acute cva TECHNIQUE: MRI of the brain; T1 sagittal and axial, T2, FLAIR, DWI axial, gradient echo coronal. COMMENT: There is extensive abnormal increased T2-weighted signal intensity throughout the white matter of both hemispheres particularly in the periatrial regions and subcortical white matter over both parietal lobes and both posterior temporal and occipital lobes. There is extensive encephalomalacia around the left sylvian fissure, the right to temporal lobe both anteriorly and inferiorly. There is no evidence of restricted diffusion to indicate an acute infarct. There is no evidence of bleed mass effect or abnormal extra-axial fluid collection. Other than the resolution of the restricted diffusion changes seen around the sylvian fissure on the previous study of 07/03/2016, and subsequent encephalomalacic changes due to that infarct, there has been no significant change. IMPRESSION: Chronic ischemic changes as described. No evidence of acute infarct. Electronically signed by Jason Pollack 01/15/2017 9:13 AM
[2017-01-15 09:20] LABS: BASO% 0.2 % (0.0-0.8); EOS# 0.06 X1000 (0.0-0.7); EOS% 0.4 % (0.0-10.0); HEMATOCRIT 33.9 % (37.0-47.0); HEMOGLOBIN 11.5 g/dL (12.0-16.0); IMM GRAN# 0.04 X1000 (0.0-0.04); IMM GRAN% 0.2 % (0.0-0.5); LYMPH# 0.26 X1000 (1.2-3.4); LYMPH% 1.6 % (20.5-51.1); MANUAL DIFF NEEDED? YES; MCH 31.6 PG (27-31); MCHC 33.9 g/dL (33-37); MCV 93.1 FL (81-99); MONO# 1.19 X1000 (0.11-0.59); MONO% 7.2 % (1.7-9.3); MPV 9.8 FL (7.4-10.4); NEUT% 90.4 % (42.2-75.2); PLT 351 X1000 (130-400); RBC 3.64 XMIL (4.2-5.4)
[2017-01-15] MEDS: CELEXA GT SCH (09:30)
[2017-01-15 09:46] LABS: AGAP 15; BUN 12 mg/dL (8-22); CALCIUM 8.7 mg/dL (8.8-10.2); CHLORIDE 92 mmol/L (98-107); COSMO 270; POTASSIUM 4.9 mmol/L (3.5-5.1); SODIUM 135 mmol/L (136-145); TCO2 28 mmol/L (25-35)
[2017-01-15 10:01] LABS: BANDS 1 % (0-1); EOS 2 % (1-10); MONO 6 % (1-9)
[2017-01-15] MEDS: PROTONIX IV SCH (18:33)
[2017-01-15] MEDS: VANCOMYCIN 1 GM/NS 1 GM/250 ML IVPB IV SCH (18:36)
[2017-01-15] MEDS: COUMADIN GT SCH (21:34)
[2017-01-16] MEDS: DUONEB (A & A) INH SCH ×6 (04:07→23:33)
[2017-01-16 05:20] LABS: MANUAL DIFF NEEDED? NO
[2017-01-16] MEDS: LASIX IV SCH ×2 (05:49→18:23)
[2017-01-16 05:50] LABS: BASO% 1.1 % (0.0-0.8); EOS# 0.36 X1000 (0.0-0.7); EOS% 4.8 % (0.0-10.0); HEMATOCRIT 33.2 % (37.0-47.0); IMM GRAN# 0.02 X1000 (0.0-0.04); IMM GRAN% 0.3 % (0.0-0.5); LYMPH# 0.86 X1000 (1.2-3.4); LYMPH% 11.4 % (20.5-51.1); MCH 31.1 PG (27-31); MCHC 33.1 g/dL (33-37); MCV 93.8 FL (81-99); MONO# 0.83 X1000 (0.11-0.59); MPV 9.9 FL (7.4-10.4); NEUT% 71.4 % (42.2-75.2); PLT 313 X1000 (130-400); RBC 3.54 XMIL (4.2-5.4)
[2017-01-16 05:55] LABS: INR 2.08
[2017-01-16 06:03] LABS: PROTIME 22.9 Seconds (9.2-11.7)
[2017-01-16 06:27] LABS: AGAP 13; BUN 21 mg/dL (8-22); CALCIUM 8.8 mg/dL (8.8-10.2); CHLORIDE 93 mmol/L (98-107); COSMO 275; POTASSIUM 3.4 mmol/L (3.5-5.1); SODIUM 136 mmol/L (136-145); TCO2 30 mmol/L (25-35)
--- NOTE | 2017-01-16 07:25 | Diag Imaging Result Doc PS360 ---
EXAM: CHEST-PORTABLE HISTORY: pulmonary edema TECHNIQUE: Erect AP portable at 0545 COMMENT: There is interstitial opacity particularly in the left lower lobe. Patient is rotated to the right. Overall, there is been no significant change since 01/15/2017. IMPRESSION: Pulmonary edema and/or bronchopneumonia. Electronically signed by Jason Pollack 01/16/2017 7:22 AM
[2017-01-16] MEDS: VITAMIN D PO SCH (08:43)
[2017-01-16] MEDS: CELEXA GT SCH (08:43)
[2017-01-16] MEDS: MAXIPIME 1 GM in NS 50 ML IV SCH ×2 (08:44→21:07)
[2017-01-16] MEDS: VANCOMYCIN 1 GM/NS 1 GM/250 ML IVPB IV SCH (12:00)
[2017-01-16] MEDS ORDERED: DEPAKOTE SPRINKLE GT ONE (12:30)
[2017-01-16] MEDS ORDERED: ATIVAN IV ONE (13:06)
[2017-01-16] MEDS ORDERED: HALDOL IM ONE (13:08)
[2017-01-16] MEDS ORDERED: HALDOL IV ONE (13:08)
[2017-01-16] MEDS ORDERED: ATIVAN GT PRN (16:21)
[2017-01-16] MEDS: SODIUM CHLORIDE 0.9% INJ SCH (18:23)
[2017-01-16] MEDS: PROTONIX IV SCH (18:23)
[2017-01-16] MEDS: DESYREL GT SCH (21:08)
[2017-01-16] MEDS: ATIVAN GT PRN (21:08)
[2017-01-16] MEDS: COUMADIN GT SCH (21:09)
[2017-01-16] MEDS: DEPAKOTE GT SCH (21:09)
[2017-01-17] MEDS: DUONEB (A & A) INH SCH ×7 (03:55→23:22)
[2017-01-17 05:59] LABS: AGAP 19; BUN 18 mg/dL (8-22); CALCIUM 8.9 mg/dL (8.8-10.2); CHLORIDE 88 mmol/L (98-107); COSMO 279; INR 2.29; POTASSIUM 3.3 mmol/L (3.5-5.1); PROTIME 25.4 Seconds (9.2-11.7); SODIUM 138 mmol/L (136-145); TCO2 31 mmol/L (25-35)
[2017-01-17] MEDS: VANCOMYCIN 1 GM/NS 1 GM/250 ML IVPB IV SCH ×2 (06:16→17:35)
[2017-01-17] MEDS: LASIX IV SCH ×2 (06:16→17:30)
--- NOTE | 2017-01-17 07:14 | Diag Imaging Result Doc PS360 ---
EXAM: CHEST-PORTABLE HISTORY: pulmonary edema TECHNIQUE: Erect AP portable at 0615 COMMENT: There is diffuse interstitial opacity throughout both lungs with apparent fibrosis in the medial right apex and focal alveolar opacity in the right base. The latter finding has been worse on previous studies of 01/14/2017 and 01/15/2017. IMPRESSION: Pulmonary edema. Questionable pneumonia right lower lobe which has improved slightly over recent previous exams. Electronically signed by Jason Pollack 01/17/2017 7:12 AM
[2017-01-17] MEDS: MAXIPIME 1 GM in NS 50 ML IV SCH ×2 (09:02→21:04)
[2017-01-17] MEDS: DEPAKOTE SPRINKLE GT SCH ×2 (09:02→17:30)
[2017-01-17] MEDS: SEROQUEL PO SCH (09:03)
[2017-01-17] MEDS: NICODERM PATCH TD SCH (09:03)
[2017-01-17] MEDS: CORDARONE GT SCH (09:03)
[2017-01-17] MEDS: VITAMIN D PO SCH (09:03)
[2017-01-17] MEDS: CELEXA GT SCH (09:03)
[2017-01-17] MEDS: SODIUM CHLORIDE 0.9% INJ SCH (17:30)
[2017-01-17] MEDS: PROTONIX IV SCH (17:30)
[2017-01-17] MEDS: ATIVAN GT PRN ×2 (17:50→23:35)
[2017-01-17] MEDS: DEPAKOTE GT SCH (21:04)
[2017-01-17] MEDS: ULTRAM PO PRN (21:04)
[2017-01-17] MEDS: DESYREL GT SCH (21:05)
[2017-01-18] MEDS: DUONEB (A & A) INH SCH ×6 (03:22→23:37)
[2017-01-18 05:22] LABS: INR 2.4; PROTIME 26.7 Seconds (9.2-11.7)
[2017-01-18] MEDS: VANCOMYCIN 1 GM/NS 1 GM/250 ML IVPB IV SCH (05:46)
[2017-01-18] MEDS: LASIX IV SCH ×2 (05:46→16:17)
[2017-01-18] MEDS: VITAMIN D PO SCH (08:13)
[2017-01-18] MEDS: DEPAKOTE SPRINKLE GT SCH (08:13)
[2017-01-18] MEDS: SEROQUEL PO SCH (08:13)
[2017-01-18] MEDS: MAXIPIME 1 GM in NS 50 ML IV SCH ×2 (08:13→16:17)
[2017-01-18] MEDS: CELEXA GT SCH (08:13)
[2017-01-18] MEDS: CORDARONE GT SCH (08:13)
[2017-01-18] MEDS: NICODERM PATCH TD SCH (08:13)
[2017-01-18 10:23] LABS: AGAP 13; ALBUMIN 2.7 g/dL (3.5-5.0); ALKALINE PHOSPHATASE 66 U/L (32-104); BUN 16 mg/dL (8-22); CALCIUM 8.5 mg/dL (8.8-10.2); CHLORIDE 92 mmol/L (98-107); COSMO 272; GOT 12 U/L (10-30); GPT 5 U/L (10-36); MAGNESIUM 1.6 mg/dL (1.5-2.7); POTASSIUM 3.9 mmol/L (3.5-5.1); PREALBUMIN 15.1 mg/dL (20-40); SODIUM 135 mmol/L (136-145); TCO2 30 mmol/L (25-35); TOTAL BILIRUBIN 0.21 mg/dL (0.20-1.00); TOTAL PROTEIN 5.7 g/dL (6.3-8.3)
[2017-01-18] MEDS: PROTONIX IV SCH (16:17)
[2017-01-18] MEDS: SODIUM CHLORIDE 0.9% INJ SCH (16:17)
[2017-01-18] MEDS: DESYREL GT SCH (21:14)
[2017-01-18] MEDS: DEPAKOTE GT SCH (21:14)
[2017-01-18] MEDS: ATIVAN GT PRN (21:15)
[2017-01-19] MEDS: MAXIPIME 1 GM in NS 50 ML IV SCH ×4 (00:09→23:37)
[2017-01-19] MEDS: LASIX IV SCH ×2 (04:58→15:50)
[2017-01-19] MEDS: DUONEB (A & A) INH SCH ×6 (05:31→23:09)
--- NOTE | 2017-01-19 07:37 | Diag Imaging Result Doc PS360 ---
EXAM: CHEST-1 VIEW HISTORY: pneumonia TECHNIQUE: AP portable upright at 0720 COMMENT: There is increased hazy opacity over both lower lung vazquez consistent with pulmonary edema. The heart size is not enlarged. IMPRESSION: Pulmonary edema and/or pneumonia. Electronically signed by Jason Pollack 01/19/2017 7:34 AM
[2017-01-19] MEDS: NICODERM PATCH TD SCH (09:09)
[2017-01-19] MEDS: DEPAKOTE SPRINKLE GT SCH (09:15)
[2017-01-19] MEDS: CORDARONE GT SCH (09:16)
[2017-01-19] MEDS: VITAMIN D PO SCH (09:21)
[2017-01-19] MEDS: SEROQUEL PO SCH (09:21)
[2017-01-19] MEDS: CELEXA GT SCH (09:21)
[2017-01-19] MEDS: PROTONIX IV SCH (15:50)
[2017-01-19] MEDS: SODIUM CHLORIDE 0.9% INJ SCH (15:50)
[2017-01-19] MEDS: DESYREL GT SCH (21:09)
[2017-01-19] MEDS: ATIVAN GT PRN (21:10)
[2017-01-19] MEDS: DEPAKOTE GT SCH (21:10)
[2017-01-20] MEDS: ATIVAN GT PRN ×2 (03:25→16:52)
[2017-01-20] MEDS: LASIX IV SCH ×2 (03:25→16:53)
[2017-01-20 05:09] LABS: MANUAL DIFF NEEDED? NO
[2017-01-20 05:16] LABS: BASO% 0.7 % (0.0-0.8); EOS# 0.39 X1000 (0.0-0.7); EOS% 5.2 % (0.0-10.0); HEMATOCRIT 32.5 % (37.0-47.0); HEMOGLOBIN 10.8 g/dL (12.0-16.0); LYMPH# 1.45 X1000 (1.2-3.4); LYMPH% 19.5 % (20.5-51.1); MCH 31.6 PG (27-31); MCHC 33.2 g/dL (33-37); MONO# 0.92 X1000 (0.11-0.59); MONO% 12.3 % (1.7-9.3); MPV 9.8 FL (7.4-10.4); NEUT% 62.3 % (42.2-75.2); PLT 291 X1000 (130-400); RBC 3.42 XMIL (4.2-5.4)
[2017-01-20 05:34] LABS: AGAP 10; BUN 17 mg/dL (8-22); CHLORIDE 89 mmol/L (98-107); COSMO 274; POTASSIUM 3.5 mmol/L (3.5-5.1); SODIUM 136 mmol/L (136-145); TCO2 37 mmol/L (25-35)
[2017-01-20] MEDS: DUONEB (A & A) INH SCH ×5 (06:05→19:17)
--- NOTE | 2017-01-20 07:16 | Diag Imaging Result Doc PS360 ---
EXAM: CHEST-PORTABLE HISTORY: pneumonia TECHNIQUE: AP portable at 0530 COMMENT: There is improvement in the pulmonary edema which was demonstrated on 01/19/2017. There is still some residual opacity particularly in the mid right lung. IMPRESSION: Improved pulmonary edema plus minus pneumonia. Electronically signed by Jason Pollack 01/20/2017 7:13 AM
[2017-01-20] MEDS: NICODERM PATCH TD SCH (10:11)
[2017-01-20] MEDS: CORDARONE GT SCH (10:12)
[2017-01-20] MEDS: CELEXA GT SCH (10:13)
[2017-01-20] MEDS: MAXIPIME 1 GM in NS 50 ML IV SCH ×2 (10:13→16:36)
[2017-01-20] MEDS: DEPAKOTE SPRINKLE GT SCH (10:13)
[2017-01-20] MEDS: SEROQUEL PO SCH (10:13)
[2017-01-20] MEDS: VITAMIN D PO SCH (10:14)
[2017-01-20] MEDS: PROTONIX IV SCH (16:53)
[2017-01-20] MEDS: SODIUM CHLORIDE 0.9% INJ SCH (16:53)
[2017-01-20] MEDS: DEPAKOTE GT SCH (20:46)
[2017-01-20] MEDS: DESYREL GT SCH (20:47)
[2017-01-21] MEDS: MAXIPIME 1 GM in NS 50 ML IV SCH ×3 (00:09→17:38)
[2017-01-21] MEDS: DUONEB (A & A) INH SCH ×6 (03:44→23:13)
[2017-01-21] MEDS: LASIX IV SCH ×2 (05:23→17:38)
[2017-01-21 05:43] LABS: MANUAL DIFF NEEDED? NO
[2017-01-21 06:04] LABS: EOS# 0.32 X1000 (0.0-0.7); EOS% 4.7 % (0.0-10.0); HEMATOCRIT 31.4 % (37.0-47.0); HEMOGLOBIN 10.6 g/dL (12.0-16.0); IMM GRAN# 0.02 X1000 (0.0-0.04); IMM GRAN% 0.3 % (0.0-0.5); LYMPH# 1.52 X1000 (1.2-3.4); LYMPH% 22.2 % (20.5-51.1); MCH 31.5 PG (27-31); MCHC 33.8 g/dL (33-37); MCV 93.2 FL (81-99); MONO# 0.59 X1000 (0.11-0.59); MONO% 8.6 % (1.7-9.3); MPV 9.7 FL (7.4-10.4); NEUT% 63.2 % (42.2-75.2); PLT 262 X1000 (130-400); RBC 3.37 XMIL (4.2-5.4)
[2017-01-21 06:34] LABS: AGAP 11; BUN 18 mg/dL (8-22); CALCIUM 9.1 mg/dL (8.8-10.2); CHLORIDE 90 mmol/L (98-107); COSMO 280; POTASSIUM 2.9 mmol/L (3.5-5.1); SODIUM 138 mmol/L (136-145); TCO2 37 mmol/L (25-35)
[2017-01-21] MEDS ORDERED: DULCOLAX PR ONE (07:38)
[2017-01-21] MEDS ORDERED: POTASSIUM CHLORIDE 40 MEQ in NS 250 ML IV ONE (08:00)
[2017-01-21] MEDS: MIRALAX PO SCH ×2 (11:45→21:30)
[2017-01-21] MEDS: NICODERM PATCH TD SCH (11:45)
[2017-01-21] MEDS: CELEXA GT SCH (11:45)
[2017-01-21] MEDS: SEROQUEL PO SCH (11:45)
[2017-01-21] MEDS: VITAMIN D PO SCH (11:46)
[2017-01-21] MEDS: CORDARONE GT SCH (11:46)
[2017-01-21] MEDS: DEPAKOTE SPRINKLE GT SCH (11:46)
[2017-01-21] MEDS: SODIUM CHLORIDE 0.9% INJ SCH (17:38)
[2017-01-21] MEDS: PROTONIX IV SCH (17:38)
[2017-01-21] MEDS: DESYREL GT SCH (21:49)
[2017-01-21] MEDS: DEPAKOTE GT SCH (21:50)
[2017-01-22] MEDS: MAXIPIME 1 GM in NS 50 ML IV SCH ×3 (00:45→22:16)
[2017-01-22] MEDS: ATIVAN GT PRN ×2 (02:48→20:19)
[2017-01-22] MEDS: DUONEB (A & A) INH SCH ×6 (04:00→23:16)
[2017-01-22] MEDS: LASIX IV SCH ×2 (05:23→17:27)
[2017-01-22 07:15] LABS: AGAP 12; BUN 20 mg/dL (8-22); CALCIUM 8.9 mg/dL (8.8-10.2); CHLORIDE 92 mmol/L (98-107); COSMO 279; POTASSIUM 3.6 mmol/L (3.5-5.1); SODIUM 138 mmol/L (136-145); TCO2 34 mmol/L (25-35)
[2017-01-22] MEDS: CELEXA GT SCH (08:39)
[2017-01-22] MEDS: CORDARONE GT SCH (08:39)
[2017-01-22] MEDS: SEROQUEL PO SCH (08:40)
[2017-01-22] MEDS: DEPAKOTE SPRINKLE GT SCH (08:40)
[2017-01-22] MEDS: VITAMIN D PO SCH (08:40)
[2017-01-22] MEDS: MIRALAX PO SCH ×2 (08:41→22:16)
[2017-01-22] MEDS: NICODERM PATCH TD SCH (08:41)
[2017-01-22] MEDS: SODIUM CHLORIDE 0.9% INJ SCH (17:27)
[2017-01-22] MEDS: PROTONIX IV SCH (17:27)
[2017-01-22] MEDS: DEPAKOTE GT SCH (20:18)
[2017-01-22] MEDS: ULTRAM PO PRN (20:19)
[2017-01-22] MEDS: DESYREL GT SCH (20:19)
[2017-01-23] MEDS: DUONEB (A & A) INH SCH ×6 (03:15→22:50)
[2017-01-23] MEDS: LASIX IV SCH ×2 (04:00→15:35)
[2017-01-23] MEDS: MAXIPIME 1 GM in NS 50 ML IV SCH ×3 (06:03→23:17)
[2017-01-23] MEDS: MIRALAX PO SCH ×2 (08:20→20:48)
[2017-01-23] MEDS: CELEXA GT SCH (08:20)
[2017-01-23] MEDS: VITAMIN D PO SCH (08:20)
[2017-01-23] MEDS: NICODERM PATCH TD SCH (08:20)
[2017-01-23] MEDS: SEROQUEL PO SCH (08:20)
[2017-01-23] MEDS: CORDARONE GT SCH (08:21)
[2017-01-23] MEDS: DEPAKOTE SPRINKLE GT SCH (08:21)
[2017-01-23] MEDS ORDERED: LACTULOSE PO ONE (13:57)
[2017-01-23] MEDS: PROTONIX IV SCH (15:34)
[2017-01-23] MEDS: SODIUM CHLORIDE 0.9% INJ SCH (15:35)
[2017-01-23] MEDS: DEPAKOTE GT SCH (20:48)
[2017-01-23] MEDS: DESYREL GT SCH (20:49)
[2017-01-23] MEDS: ULTRAM PO PRN (20:49)
[2017-01-23] MEDS: ATIVAN GT PRN (20:49)
[2017-01-24] MEDS: DUONEB (A & A) INH SCH ×7 (03:38→23:10)
[2017-01-24] MEDS: LASIX IV SCH ×3 (05:00→16:53)
[2017-01-24] MEDS: MAXIPIME 1 GM in NS 50 ML IV SCH ×3 (05:59→16:53)
[2017-01-24 06:08] LABS: MANUAL DIFF NEEDED? NO
[2017-01-24 06:22] LABS: BASO% 1.6 % (0.0-0.8); EOS# 0.83 X1000 (0.0-0.7); EOS% 11.3 % (0.0-10.0); HEMATOCRIT 32.9 % (37.0-47.0); HEMOGLOBIN 10.6 g/dL (12.0-16.0); IMM GRAN# 0.02 X1000 (0.0-0.04); IMM GRAN% 0.3 % (0.0-0.5); LYMPH# 1.63 X1000 (1.2-3.4); LYMPH% 22.2 % (20.5-51.1); MCH 31.1 PG (27-31); MCHC 32.2 g/dL (33-37); MCV 96.5 FL (81-99); MONO% 9.5 % (1.7-9.3); MPV 10.6 FL (7.4-10.4); NEUT% 55.1 % (42.2-75.2); PLT 208 X1000 (130-400); RBC 3.41 XMIL (4.2-5.4)
[2017-01-24 06:35] LABS: AGAP 8; BUN 23 mg/dL (8-22); CALCIUM 8.7 mg/dL (8.8-10.2); CHLORIDE 91 mmol/L (98-107); COSMO 277; INR 1.12; POTASSIUM 3.9 mmol/L (3.5-5.1); PROTIME 11.8 Seconds (9.2-11.7); SODIUM 136 mmol/L (136-145); TCO2 37 mmol/L (25-35)
[2017-01-24] MEDS: VITAMIN D PO SCH (10:36)
[2017-01-24] MEDS: DEPAKOTE SPRINKLE GT SCH (10:36)
[2017-01-24] MEDS: CELEXA GT SCH (10:36)
[2017-01-24] MEDS: NICODERM PATCH TD SCH (10:36)
[2017-01-24] MEDS: ATIVAN GT PRN ×2 (10:36→21:19)
[2017-01-24] MEDS: SEROQUEL PO SCH (10:36)
[2017-01-24] MEDS: CORDARONE GT SCH (10:36)
[2017-01-24] MEDS: ULTRAM PO PRN ×2 (10:37→21:18)
[2017-01-24] MEDS: MIRALAX PO SCH ×2 (10:40→21:19)
[2017-01-24] MEDS: SODIUM CHLORIDE 0.9% INJ SCH (13:01)
[2017-01-24] MEDS: PROTONIX IV SCH ×2 (13:01→16:53)
[2017-01-24] MEDS ORDERED: COUMADIN GT ONE (14:58)
[2017-01-24] MEDS: DEPAKOTE GT SCH (21:18)
[2017-01-24] MEDS: DESYREL GT SCH (21:19)
[2017-01-25] MEDS: MAXIPIME 1 GM in NS 50 ML IV SCH ×4 (00:13→23:41)
[2017-01-25] MEDS: DUONEB (A & A) INH SCH ×7 (03:00→23:34)
[2017-01-25] MEDS: ATIVAN GT PRN (04:02)
[2017-01-25] MEDS: ULTRAM PO PRN (04:02)
[2017-01-25] MEDS: LASIX IV SCH ×2 (04:02→16:26)
[2017-01-25 06:40] LABS: MANUAL DIFF NEEDED? NO
[2017-01-25 06:59] LABS: BASO% 1.6 % (0.0-0.8); EOS# 0.93 X1000 (0.0-0.7); EOS% 13.9 % (0.0-10.0); HEMATOCRIT 33.2 % (37.0-47.0); HEMOGLOBIN 10.7 g/dL (12.0-16.0); IMM GRAN# 0.02 X1000 (0.0-0.04); IMM GRAN% 0.3 % (0.0-0.5); LYMPH# 1.67 X1000 (1.2-3.4); LYMPH% 24.9 % (20.5-51.1); MCH 31.4 PG (27-31); MCHC 32.2 g/dL (33-37); MCV 97.4 FL (81-99); MONO# 0.75 X1000 (0.11-0.59); MONO% 11.2 % (1.7-9.3); MPV 10.3 FL (7.4-10.4); NEUT% 48.1 % (42.2-75.2); PLT 204 X1000 (130-400); RBC 3.41 XMIL (4.2-5.4)
[2017-01-25 07:00] LABS: AGAP 7; BUN 25 mg/dL (8-22); CALCIUM 9.6 mg/dL (8.8-10.2); CHLORIDE 92 mmol/L (98-107); COSMO 279; POTASSIUM 3.8 mmol/L (3.5-5.1); SODIUM 137 mmol/L (136-145); TCO2 38 mmol/L (25-35)
[2017-01-25 08:57] LABS: INR 1.11; PROTIME 11.7 Seconds (9.2-11.7)
[2017-01-25] MEDS: NICODERM PATCH TD SCH (09:52)
[2017-01-25] MEDS: CORDARONE GT SCH (09:52)
[2017-01-25] MEDS: VITAMIN D PO SCH (09:52)
[2017-01-25] MEDS: MIRALAX PO SCH ×2 (09:53→20:36)
[2017-01-25] MEDS: DEPAKOTE SPRINKLE GT SCH (09:53)
[2017-01-25] MEDS: CELEXA GT SCH (09:53)
[2017-01-25] MEDS: SEROQUEL PO SCH (09:53)
[2017-01-25] MEDS: PROTONIX IV SCH (16:18)
[2017-01-25] MEDS: SODIUM CHLORIDE 0.9% INJ SCH (16:18)
[2017-01-25] MEDS: DESYREL GT SCH (20:36)
[2017-01-25] MEDS: DEPAKOTE GT SCH (20:37)
[2017-01-25] MEDS ORDERED: JANTOVEN GT SCH (21:00)
[2017-01-25] MEDS ORDERED: COUMADIN GT ONE (21:00)
[2017-01-26] MEDS: ATIVAN GT PRN ×2 (03:07→18:37)
[2017-01-26] MEDS: DUONEB (A & A) INH SCH ×6 (03:35→22:30)
[2017-01-26] MEDS: LASIX IV SCH ×2 (05:50→15:02)
[2017-01-26] MEDS: MAXIPIME 1 GM in NS 50 ML IV SCH ×5 (05:50→23:29)
[2017-01-26 07:05] LABS: INR 1.12; PROTIME 11.8 Seconds (9.2-11.7)
[2017-01-26 07:26] LABS: AGAP 6; BUN 22 mg/dL (8-22); CALCIUM 9.1 mg/dL (8.8-10.2); CHLORIDE 93 mmol/L (98-107); COSMO 279; POTASSIUM 3.3 mmol/L (3.5-5.1); SODIUM 138 mmol/L (136-145); TCO2 39 mmol/L (25-35)
--- NOTE | 2017-01-26 07:34 | Diag Imaging Result Doc PS360 ---
EXAM: CHEST-1 VIEW INDICATION: pneumonia TECHNIQUE: One view COMPARISON: 01/20/2017 FINDINGS: The patient is rotated toward the right. There is residual mild increased interstitial markings, especially in the right mid and upper lung zone. Some of this may actually represent scarring. The left lung is clear. No new consolidations are identified. Cardiac silhouette is stable. IMPRESSION: Mild residual increased interstitial markings on the right as described. Electronically signed by Mitesh Bah 01/26/2017 7:32 AM
[2017-01-26] MEDS: NICODERM PATCH TD SCH ×2 (07:54→09:42)
[2017-01-26] MEDS: DEPAKOTE SPRINKLE GT SCH ×2 (07:54→09:42)
[2017-01-26] MEDS: CELEXA GT SCH ×2 (07:54→09:42)
[2017-01-26] MEDS: MIRALAX PO SCH ×3 (07:54→23:29)
[2017-01-26] MEDS: SEROQUEL PO SCH ×2 (07:55→09:42)
[2017-01-26] MEDS: VITAMIN D PO SCH ×2 (07:55→09:42)
[2017-01-26] MEDS: CORDARONE GT SCH ×2 (07:56→09:43)
[2017-01-26] MEDS ORDERED: POTASSIUM CHLORIDE 60 MEQ in NS 500 ML IV ONE (13:00)
[2017-01-26] MEDS: PROTONIX IV SCH (15:02)
[2017-01-26] MEDS: SODIUM CHLORIDE 0.9% INJ SCH (15:02)
[2017-01-26] MEDS ORDERED: COUMADIN GT SCH (21:00)
[2017-01-26] MEDS: DEPAKOTE GT SCH (21:32)
[2017-01-26] MEDS: DESYREL GT SCH (21:33)
[2017-01-27] MEDS: ATIVAN GT PRN ×2 (00:09→08:43)
[2017-01-27] MEDS: ULTRAM PO PRN (00:55)
[2017-01-27] MEDS: DUONEB (A & A) INH SCH ×4 (03:00→15:39)
[2017-01-27] MEDS: LASIX IV SCH (05:32)
[2017-01-27] MEDS: MAXIPIME 1 GM in NS 50 ML IV SCH (06:32)
[2017-01-27] MEDS: SEROQUEL PO SCH (08:43)
[2017-01-27] MEDS: CORDARONE GT SCH (08:43)
[2017-01-27] MEDS: CELEXA GT SCH (08:43)
[2017-01-27] MEDS: NICODERM PATCH TD SCH (08:44)
[2017-01-27] MEDS: DEPAKOTE SPRINKLE GT SCH (08:44)
[2017-01-27] MEDS: MIRALAX PO SCH (08:44)
[2017-01-27] MEDS: VITAMIN D PO SCH (08:45)
[2017-01-27] MEDS ORDERED: POTASSIUM CHLORIDE 20% LIQUID GT ONE (11:40)
[2017-01-27 15:25] VITALS: BP 118/52
[2017-01-27] MEDS ORDERED: LASIX PO SCH (21:00)
[2017-01-28] MEDS ORDERED: CORDARONE GT SCH (09:00)
== END 2017-01-27 17:16 ==
LOC: ED 11:49 → EDIPHOLD 21:26 → SUATTDRO 21:26 → 3S 01-15 15:29 → 4N 01-20 14:08
PROVIDERS: ATTEND Internal Medicine

== ENCOUNTER 2017-02-05 12:56 | Inpatient (IN) ==
--- NOTE | 2017-02-05 15:11 | EKG Report ---
Test Performed on : 02/05/2017 1:27:42 PM Test Reason : Low heart rate Blood Pressure : / mmHG Vent. Rate : 044 BPM Atrial Rate : 044 BPM P-R Int : 000 ms QRS Dur : 094 ms QT Int : 472 ms P-R-T Axes : 000 057 -84 degrees QTc Int : 403 ms Junctional bradycardia. Cannot rule out Inferior infarct , age undetermined Abnormal ECG When compared with ECG of 15-JAN-2017 06:00, Junctional rhythm. has replaced Sinus rhythm. Vent. rate has decreased BY 36 BPM Minimal criteria for Inferior infarct are now present Unconfirmed Result
--- NOTE | 2017-02-05 15:23 | Diag Imaging Result Doc PS360 ---
EXAM: CHEST-PORTABLE HISTORY: SLOW HEART RATE TECHNIQUE: Portable AP COMPARISON: 02/01/2017 FINDINGS: The lungs are well expanded. There is a dense infiltrate in the medial segment of the right middle lobe. There may be an infiltrate in the lower lobe as well. Findings are more pronounced than on the prior study. Heart is mildly enlarged. Increased markings in the right apex may be fibrosis. No pleural effusions identified. IMPRESSION: Right middle lobe pneumonia. Electronically signed by Santhosh Diaz 02/05/2017 3:21 PM
[2017-02-05 16:20] LABS: MANUAL DIFF NEEDED? NO
[2017-02-05 16:27] LABS: BASO% 1.4 % (0.0-0.8); EOS# 0.14 X1000 (0.0-0.7); EOS% 2.7 % (0.0-10.0); HEMATOCRIT 29.5 % (37.0-47.0); HEMOGLOBIN 9.9 g/dL (12.0-16.0); LYMPH# 1.46 X1000 (1.2-3.4); LYMPH% 28.3 % (20.5-51.1); MCH 32.1 PG (27-31); MCHC 33.6 g/dL (33-37); MCV 95.8 FL (81-99); MONO# 0.51 X1000 (0.11-0.59); MONO% 9.9 % (1.7-9.3); MPV 12.1 FL (7.4-10.4); NEUT% 57.7 % (42.2-75.2); PLT 118 X1000 (130-400); RBC 3.08 XMIL (4.2-5.4)
[2017-02-05 16:28] LABS: INR 1.13; PTT 30.3 Seconds (22.0-36.0)
[2017-02-05 16:34] LABS: URINE MICRO REVIEW NEEDED? NO; URINE SOURCE CATH
[2017-02-05 16:38] LABS: BILIRUBIN URINE NEGATIVE (NEGATIVE); BLOOD URINE NEGATIVE (NEGATIVE); COLOR YELLOW; GLUCOSE URINE NEGATIVE (NEGATIVE); LEUKOCYTES URINE LARGE (NEGATIVE); NITRITE URINE NEGATIVE (NEGATIVE); PH URINE 6.5; PROTEIN URINE NEGATIVE (NEGATIVE); SP GRAVITY URINE 1.009; TURBIDITY URINE CLEAR (CLEAR); UR EPITHELIAL CELLS <10 /HPF (<10); URINE BACTERIA 4+ /HPF; URINE CULTURE NEEDED? YES; URINE RBC <10 /HPF (<10); UROBILINOGEN URINE NORMAL (NORMAL)
[2017-02-05 16:42] LABS: AGAP 9; ALBUMIN 2.8 g/dL (3.5-5.0); ALKALINE PHOSPHATASE 58 U/L (32-104); BUN 14 mg/dL (8-22); CALCIUM 8.3 mg/dL (8.8-10.2); CHLORIDE 102 mmol/L (98-107); COSMO 275; GOT 16 U/L (10-30); GPT 12 U/L (10-36); POTASSIUM 4.5 mmol/L (3.5-5.1); SODIUM 138 mmol/L (136-145); TCO2 27 mmol/L (25-35)
[2017-02-05 16:48] LABS: CK PROFILE 178 U/L (24-173)
[2017-02-05 17:04] LABS: CK INDEX 5.6 (0.0-2.5); CK-MB 10.02 ng/mL (0.0-5.0)
[2017-02-05] MEDS ORDERED: ROCEPHIN 1 GM in NS 50 ML IV ONE (17:18)
--- NOTE | 2017-02-05 17:23 | PROVIDER DOCUMENTATION ---
This chart was entered by April Ascencio Scribe, acting as scribe for Adam Cristobal MD. HPI-Cardiac General - General Chief Complaint: General Adult Stated Complaint: decreased vital signs Time Seen by Provider: 02/05/17 14:58 Source: EMS Allergies/Adverse Reactions: Patient Allergies Allergy/AdvReac Type Severity Reaction Status Date / Time No Known Allergies Allergy Verified 01/14/17 18:51 Home Medications: Home Medication List Medication Instructions Recorded Confirmed Last Taken Type ATORVAstatin [Lipitor] 10 mg PO QHS #0 tablet 07/30/16 02/05/17 02/05/17 09:00 Rx Acetaminophen [Tylenol] 650 mg MD Q4-6H PRN PRN #0 supp 07/30/16 02/05/17 Rx Aspirin 81 mg GT DAILY #0 chewtab 07/30/16 02/05/17 02/05/17 09:00 Rx Nicotine Patch [Nicoderm Patch] 14 mg TD DAILY #0 patch.[email or web address] 07/30/16 02/05/17 02/05/17 09:00 Rx Citalopram [Celexa] 20 mg GT QAM 08/16/16 02/05/17 02/05/17 09:00 History Divalproex [Depakote] 250 mg GT QAM 12/22/16 02/05/17 02/05/17 09:00 History Divalproex [Depakote] 500 mg PO QHS 12/22/16 02/05/17 02/05/17 09:00 History Esomeprazole [Nexium Packet] 40 mg GT HS 12/22/16 02/05/17 02/04/17 21:00 History Amiodarone [Cordarone] 200 mg GT DAILY #0 tablet 01/27/17 02/05/17 02/05/17 09: 00 Rx Quetiapine [Seroquel] 25 mg GT QAM #60 01/27/17 02/05/17 02/05/17 09:00 Rx Trazodone [Desyrel] 100 mg GT QHS #0 01/27/17 02/05/17 02/04/17 21:00 Rx Albuterol 2.5MG/Ipratrop 0.5MG 3 ml INH Q6H PRN 0902/05/17 02/05/17 10: 00 History [Duoneb] Collagenase Clostridium Oint 1 applicatn TOP DAILY 02/05/17 02/05/17 01/28/17 16 :38 History [Santyl Oint] Furosemide [Lasix] 40 mg GT DAILY 02/05/17 02/05/17 02/05/17 09:00 History Lansoprazole [Prevacid] 30 mg PO DAILY 02/05/17 02/05/17 02/05/17 09:00 History Lorazepam [Ativan] 1 mg GT Q6H PRN PRN 02/05/17 02/05/17 02/05/17 12:00 History Potassium Chloride 40 meq GT DAILY 02/05/17 02/05/17 02/05/17 09:00 History Tramadol HCl 50 mg PO Q6H PRN PRN 02/05/17 02/05/17 02/05/17 12:00 History - History of Present Illness-Cardiac Nature of Presenting Problem: 61 YOF PRESENTS TO ED BY EMS WITH LOW VITAL SIGNS. PT SENT FROM [facility] WITH LOW HR. Location: reports: other (LOW HR) Quality of Pain: reports: none Severity in ED: mild Onset/Duration: just prior to arrival Timing: still present Context/Activities at Onset: reports: none Modifying Factors: improves with: nothing Review of Systems - Adult - REVIEW OF SYSTEMS - ADULT Constitutional: reports: no symptoms reported Eyes: reports: no symptoms reported Ears, Nose, Mouth & Throat: reports: no symptoms reported Cardiovascular: reports: irregular heart rate, other (LOW HR 39). denies: edema Respiratory: reports: no symptoms reported Gastrointestinal: reports: no symptoms reported Genitourinary: reports: no symptoms reported Musculoskeletal: reports: no symptoms reported Integumentary: reports: no symptoms reported Neurological: reports: no symptoms reported Psychiatric: reports: no symptoms reported Endocrine: reports: no symptoms reported Hematologic/Lymphatic: reports: no symptoms reported Allergic/Immunologic: reports: no symptoms reported All Other Systems: Reviewed and Negative Past History - Adult - PAST MEDICAL HISTORY-ADULT Review of Records: reports: Old Records Reviewed, Nursing Assessment Review, Medications Reviewed Major Childhood Illnesses: reports: history unknown Cardiovascular: reports: A-Fib, HTN, hyperlipidemia Respiratory: reports: COPD Neurological: reports: Seizures/Epilepsy Psychiatric: reports: depression - PRIOR SURGERIES/PROCEDURES Surgical/Procedure History: reports: other (cervix) - IMMUNIZATION STATUS Childhood Immunizations: See Nurse Assessment Flu Vaccine: See Nurse Assessment - SOCIAL HISTORY Smoking: quit greater than 1 year Substance Use: denies Living Situation: care facility Physical Exam-General - PHYSICAL EXAM-ADULT Initial Vital Signs Reviewed: Yes - CONSTITUTIONAL General Appearance: thin, slow to respond - CARDIOVASCULAR Cardiovascular: bradycardia (39) - SKIN Integumentary: warm/dry Progress - PLAN OF CARE/RESULTS Progress/Plan/Lab Results: Vital Signs - 8 hr 02/05/17 13:05 02/05/17 13:16 02/05/17 14:30 Temperature 97.2 F L Pulse Rate 43 L 44 L 82 Respiratory Rate 20 13 22 Blood Pressure 92/43 103/53 129/87 O2 Sat by Pulse Oximetry 100 99 97 02/05/17 15:30 02/05/17 17:06 Temperature Pulse Rate 40 L 40 L Respiratory Rate 14 12 Blood Pressure 106/52 108/51 O2 Sat by Pulse Oximetry 100 Laboratory Results - last 24 hr 02/05/17 02/05/17 02/05/17 16:00 16:00 16:00 WBC RBC Hgb Hct MCV MCH MCHC RDW Std Deviation Plt Count MPV Immature Gran % (Auto) Neut % (Auto) Lymph % (Auto) Terrell % (Auto) Eos % (Auto) Baso % (Auto) Immature Gran # (Auto) Neut # (Auto) Lymph # (Auto) Terrell # (Auto) Eos # (Auto) Baso # (Auto) PT 12.0 H INR 1.13 PTT (Actin FS) 30.3 Sodium 138 Potassium 4.5 Chloride 102 Carbon Dioxide 27 Anion Gap 9 BUN 14 Creatinine 0.5 Estimated GFR/1.73 m2 > 60 BUN/Creatinine Ratio 28 Glucose 79 Calculated Osmolality 275 Calcium 8.3 L Total Bilirubin 0.30 AST 16 ALT 12 Alkaline Phosphatase 58 Creatine Kinase 178 H Creatine Kinase Index 5.6 H CK-MB (CK-2) 10.02 H Troponin T < 0.010 Total Protein 6.0 L Albumin 2.8 L Globulin 3.2 Albumin/Globulin Ratio 0.9 Plasma Lactate Urine Source Urine Color Urine Turbidity Urine pH Ur Specific Durham Urine Protein Ur Glucose (Stick) Ur Ketones (Stick) Urine Blood Urine Nitrite Urine Bilirubin Urobilinogen Dipstick Urine Leukocytes Urine WBC (Auto) Urine RBC (Auto) U Epithel Cells (Auto) Urine Bacteria (Auto) 02/05/17 02/05/17 02/05/17 16:00 16:00 16:09 WBC 5.16 RBC 3.08 L Hgb 9.9 L Hct 29.5 L MCV 95.8 MCH 32.1 H MCHC 33.6 RDW Std Deviation 14.1 Plt Count 118 L MPV 12.1 H Immature Gran % (Auto) 0.0 Neut % (Auto) 57.7 Lymph % (Auto) 28.3 Terrell % (Auto) 9.9 H Eos % (Auto) 2.7 Baso % (Auto) 1.4 H Immature Gran # (Auto) 0.00 Neut # (Auto) 2.98 Lymph # (Auto) 1.46 Terrell # (Auto) 0.51 Eos # (Auto) 0.14 Baso # (Auto) 0.07 PT INR PTT (Actin FS) Sodium Potassium Chloride Carbon Dioxide Anion Gap BUN Creatinine Estimated GFR/1.73 m2 BUN/Creatinine Ratio Glucose Calculated Osmolality Calcium Total Bilirubin AST ALT Alkaline Phosphatase Creatine Kinase Creatine Kinase Index CK-MB (CK-2) Troponin T Total Protein Albumin Globulin Albumin/Globulin Ratio Plasma Lactate 1.3 Urine Source CATH Urine Color YELLOW Urine Turbidity CLEAR Urine pH 6.5 Ur Specific Durham 1.009 Urine Protein NEGATIVE Ur Glucose (Stick) NEGATIVE Ur Ketones (Stick) NEGATIVE Urine Blood NEGATIVE Urine Nitrite NEGATIVE Urine Bilirubin NEGATIVE Urobilinogen Dipstick NORMAL Urine Leukocytes LARGE A Urine WBC (Auto) 10-20 A Urine RBC (Auto) <10 U Epithel Cells (Auto) <10 Urine Bacteria (Auto) 4+ Orders Category Date Time Status Grant Cath Insertion ORDERED Care 02/05/17 15:09 Active CHEST-PORTABLE [RAD] Stat Exams 02/05/17 15:05 Completed BLOOD CULTURE [BLDCUL] Stat Lab 02/05/17 16:14 Received CBC WITH ELECTRONIC DIFF [HEME] Stat Lab 02/05/17 16:00 Completed CK PROFILE [SP CHEM] Stat Lab 02/05/17 16:00 Completed COMPREHENSIVE METABOLIC PANEL [CHEM] Stat Lab 02/05/17 16:00 Completed LACTATE, PLASMA [CHEM] Stat Lab 02/05/17 16:00 Completed PROTIME WITH INR [COAG] Stat Lab 02/05/17 16:00 Completed PTT [COAG] Stat Lab 02/05/17 16:00 Completed TROPONIN T Stat Lab 02/05/17 16:00 Completed URINALYSIS W/POSS RFLX CULT-1 [URINALYSIS] Stat Lab 02/05/17 16:09 Completed URINE CULTURE [RM] Routine Lab 02/05/17 16:42 Received EKG [EKG] Stat Ther 02/05/17 13:27 Draft EKG [EKG] Urgent Ther 02/05/17 17:00 Ordered Result Diagrams: 02/05/17 16:00 02/05/17 16:00 - EKG 1 Time of EKG reading by physician:: 13:27 EKG Read and Signed by:: Adam Cristobal EKG Interpretation (*Must complete 3 of following elements*): Abnormal Rate: 44 Rhythm: JUNCTIONAL BRADYCARDIA - XRAY 1 XRAY: Bilateral XRAY Study: Chest XRAY Interpretation: RIGHT MIDDLE LOBE PNEUMONIA - CONSULTS/PCP/HOSPITALIST Notification #1 *Consult/PCP/Hospitalist*: HOSPITALIST Time Discussed: 17:20 (ADMIT TO DR. VILLA) Consult Disposition: Admit Departure - Departure Date of Disposition Decision: 02/05/17 Time of Disposition Decision: 17:21 DIAGNOSIS: Pneumonia, Urinary tract infection, Bradycardia, Anemia Disposition: ADMITTED INPATIENT 09 Certified Medical Emergency: Emergent Condition: Poor Referrals and Follow-Ups: None,PCP [Primary Care Provider] - - Critical Care Note This patient required my direct & personal management of CC.: No Attestation - Physician/ DAIANA Attestation Patient care was provided by Advanced Practice Provider:: No The physician spent face to face time with patient:: Yes Advanced Practice Provider documentation review:: Supervising physician onsite and consulted in the evaluation and care of this patient. The physician did have a face to face encounter with the patient. This chart was documented by the indicated scribe, (April Ascencio Scribe) and accurately reflects the services I performed and decisions made by me, Adam Cristobal MD, as attested by the provider's signature.
[2017-02-05] MEDS ORDERED: ZOFRAN IV PRN (22:03)
[2017-02-05] MEDS ORDERED: ROCEPHIN IM SCH (22:03)
[2017-02-05] MEDS ORDERED: TYLENOL PO PRN (22:03)
[2017-02-05] MEDS ORDERED: XYLOCAINE-MPF 1% INJ ONE (22:03)
[2017-02-05] MEDS: DUONEB (A & A) INH SCH (23:33)
[2017-02-05] MEDS: ATIVAN IV PRN (23:56)
[2017-02-06] MEDS ORDERED: TYLENOL PR PRN (02:04)
[2017-02-06] MEDS: ATIVAN IV PRN ×4 (04:16→18:47)
[2017-02-06] MEDS: PRILOSEC GT SCH (06:51)
[2017-02-06] MEDS: DUONEB (A & A) INH SCH ×3 (09:25→20:12)
--- NOTE | 2017-02-06 10:19 | HISTORY AND PHYSICAL ---
CHIEF COMPLAINT: "Low vital signs." HISTORY OF PRESENT ILLNESS: This 61-year-old, white female was admitted here on the last day of December and treated for 14 days for Pseudomonas pneumonia. She was discharged to [facility] on the rehab side on the . She was apparently seen in the emergency department and discharged on 02/01. She was sent by [facility] for low heart rate and low blood pressure. Initially the patient was admitted to the Hospitalist Service and contacted the PA. Unfortunately before the shift changed, they were called to a code and I was unable to talk with the ER physician directly. Ms. Rodriguez's history was reviewed thoroughly. She is nonverbal and we are unable to really get any historical elements from her, only through the old medical record. PAST MEDICAL HISTORY: 1. Dementia with behavioral disturbance including loud shouting and agitation. 2. Paroxysmal atrial fibrillation. It is unclear reading variable reports whether she is on Coumadin, aspirin, Plavix or some combination of 2 or 3 of those. 3. History of CVA with aphasia and dysphasia, as well as a hemipareses. She requires a PEG tube. 4. Remote history of cervical cancer. 5. History of MRSA of the lung, as well as Pseudomonas. 6. History of hyponatremia. 7. History of old strokes as seen on CT scan. PAST SURGICAL HISTORY: 1. D and C with LEEP procedure. 2. PEG tube. SOCIAL HISTORY: The patient is a former abuser of alcohol and cigarettes. She is a resident of [facility]. According to the last notes, she is still a full code. FAMILY HISTORY: Unable. REVIEW OF SYSTEMS: Unable. ALLERGIES: No known drug allergies. HOME MEDICATIONS: As per the last discharge summary from 01/27: 1. Nicotine patch. 2. Aspirin 81 mg daily. 3. Acetaminophen rectally p.r.n. 4. Atorvastatin 10 mg p.o. at bedtime. 5. Citalopram 20 mg per tube every morning. 6. Ondansetron p.r.n. 7. Potassium chloride liquid 40 mEq per tube every morning. 8. Depakote 500 mg per tube at bedtime. 9. Nexium 40 mg per tube daily at 7 a.m. 10. Depakote 250 mg per tube every morning. 11. Lorazepam 0.5 per G-tube p.r.n. every 6 hours. 12. Seroquel. 25-50 mg per tube daily. 13. Tramadol 50 mg p.o. q. 6 hours. 14. Trazodone 150 mg per tube at bedtime. 15. Amiodarone 200 mg per tube daily. 16. Furosemide 40 mg per tube twice a day. 17. Warfarin 5 mg per tube every day. PHYSICAL EXAMINATION: GENERAL: The patient is chronically ill appearing. She will open her eyes and shout to certain stimuli, but really had no meaningful interaction. NECK: Exam is unremarkable. LUNGS: Showed good expansion, normal breathing cycle. There were no wheezes or crackles noted. EXTREMITIES: The patient's right upper extremity is wrapped due to IV protection. There are small skin tears on the dorsum of the right hand. Extremities showed no peripheral edema. I was unable to roll the patient to look at the sacral decubitus as described on her intermediate paperwork. NEUROLOGIC: Was not possible to test. LABORATORY: White cell count 5.1, hemoglobin 9.9, platelets 118. INR is 1.13. Serum electrolytes were grossly normal. Creatine kinase is 178 with CK-MB of 10.02. Troponin was negative. Urinalysis showed large leukocytes with 10-20 per high-power field and 4+ bacteria. ASSESSMENT AND PLAN: 1. The patient has reported a right middle lobe pneumonia as evidenced on x-rays. It could be residual shadow from her previous infection. She was treated for 14 days with Pseudomonas which had a significant resistance pattern. We will start her back on antibiotics, and consideration for consultation to infectious disease should be made as well. It is interesting that her white cell count was normal, but given the fact that her heart rate and blood pressure were so low we may be dealing with some form of an evolving sepsis syndrome. 2. The patient has urinary tract infection based on the catheter urinalysis. She has white cells and bacteria in the urine. In the past, she has had Escherichia coli and Enterobacter. We will start appropriate antibiotics for this. 3. The patient's heart rate is very low. I think that her amiodarone was adjusted previously. The rhythm appears to be atrial fibrillation or flutter with bradycardia and a narrow complex. I plan to hold her amiodarone if her heart rate does not pickling grader or we have further problems with rate control. Cardiology can be consulted at that time. 4. Unfortunately for this woman with multiple chronic insults, she is still a full code. 5. Reported sacral decubitus. We will have wound care to look at that this weekend and monitor that as time goes on. cc: Radu Wahl MD
[2017-02-06] MEDS: KLOR-CON POWDER PACKET GT SCH (11:29)
[2017-02-06] MEDS: CELEXA GT SCH (11:29)
[2017-02-06] MEDS: ASPIRIN GT SCH (11:29)
[2017-02-06] MEDS: SEROQUEL GT SCH (11:29)
[2017-02-06] MEDS: DEPAKENE LIQUID GT SCH ×2 (11:29→22:50)
[2017-02-06] MEDS: SANTYL OINT TOP SCH (11:30)
[2017-02-06] MEDS: MERREM 1 GM in NS 50 ML IV SCH ×2 (13:44→21:55)
[2017-02-06] MEDS: NS 1,000 ML IV SCH ×2 (13:44)
[2017-02-06] MEDS: ATIVAN GT PRN ×2 (16:32→22:50)
--- NOTE | 2017-02-06 18:39 | PROGRESS NOTE ---
DATE: 02/06/2017 SUBJECTIVE: Ms. Rodriguez is a resident of a snf. I understand was brought in because of abnormal vitals. Over here, she was found to have a blood pressure of 92/43, pulse of 42, respiration was 20 when she initially hit the door. She is not able to give any interval history because she is nonverbal. OBJECTIVE: Vital signs: Now, blood pressure is 125/63, pulse is 53, respirations 20, temperature 96.9 degrees. General: Ms. Rodriguez is a 61-year-old, female. She is in bed. She did not seem to be in any distress. HEENT: Mucosa is slightly dry. Anicteric. Acyanotic. Neck: Supple. Chest: Air entry is bilaterally reduced. A few bibasilar crepitations. Cardiovascular: Regular rate and rhythm. There is no murmur, no rubs, no gallops. Abdomen: Soft. There is a PEG tube in place. Extremities: No pedal edema. Central nervous system: The patient is awake, alert and nonverbal, but occasionally she will shout and make some incomprehensive noises. LABORATORY DATA: None for today. Yesterday, hemoglobin was 5.9. Chemistry was also unremarkable. Urinalysis showed leukocyte large. The blood culture is pending. IMAGING: A patient had a chest x-ray that showed right middle lobe pneumonia. ASSESSMENT: 1. Hypotension on presentation, likely from sepsis. 2. Right lower lobe pneumonia. The patient was here last month and was treated for pseudomonal pneumonia. It looks like this is recurrent versus possible aspiration. This was resistant to levofloxacin. The patient was last treated for 14 days with IV cefepime, so we will use carbapenem. 3. Possible urinary tract infection. 4. Percutaneous endoscopic gastrostomy tube feedings. 5. Reported sacral decubitus ulcer. 6. Protein calorie malnutrition. 7. History of paroxysmal atrial fibrillation. 8. Clinical volume depletion: We will also hydrate the patient with gentle normal saline at about 75 mL/h for 1 day. cc: MD HOLA Yang
[2017-02-06] MEDS: DESYREL GT SCH (22:49)
[2017-02-06] MEDS: LIPITOR PO SCH (22:49)
[2017-02-06] MEDS: ULTRAM PO PRN (22:49)
[2017-02-07] MEDS: ATIVAN IV PRN ×3 (00:49→08:10)
[2017-02-07] MEDS: NS 1,000 ML IV SCH ×4 (04:20→17:59)
[2017-02-07] MEDS: MERREM 1 GM in NS 50 ML IV SCH ×2 (04:21→17:58)
[2017-02-07] MEDS: PRILOSEC GT SCH (06:12)
[2017-02-07 06:46] LABS: MANUAL DIFF NEEDED? NO
[2017-02-07 06:57] LABS: BASO% 1.1 % (0.0-0.8); EOS% 1.9 % (0.0-10.0); HEMOGLOBIN 10.4 g/dL (12.0-16.0); LYMPH# 1.18 X1000 (1.2-3.4); LYMPH% 22.4 % (20.5-51.1); MCH 31.8 PG (27-31); MCHC 33.5 g/dL (33-37); MCV 94.8 FL (81-99); MONO# 0.45 X1000 (0.11-0.59); MONO% 8.6 % (1.7-9.3); MPV 12.2 FL (7.4-10.4); PLT 139 X1000 (130-400); RBC 3.27 XMIL (4.2-5.4)
[2017-02-07 07:23] LABS: AGAP 11; BUN 11 mg/dL (8-22); CALCIUM 8.5 mg/dL (8.8-10.2); CHLORIDE 104 mmol/L (98-107); COSMO 275; SODIUM 139 mmol/L (136-145); TCO2 24 mmol/L (25-35)
[2017-02-07] MEDS: DUONEB (A & A) INH SCH ×3 (09:39→20:04)
[2017-02-07] MEDS: SANTYL OINT TOP SCH (10:09)
[2017-02-07] MEDS: ASPIRIN GT SCH (14:08)
[2017-02-07] MEDS: CELEXA GT SCH (14:09)
[2017-02-07] MEDS: KLOR-CON POWDER PACKET GT SCH (14:09)
[2017-02-07] MEDS: DEPAKENE LIQUID GT SCH ×2 (14:09→22:20)
[2017-02-07] MEDS: SEROQUEL GT SCH (14:10)
[2017-02-07] MEDS: ULTRAM PO PRN (14:11)
[2017-02-07] MEDS: ATIVAN GT PRN (14:12)
--- NOTE | 2017-02-07 19:12 | PROGRESS NOTE ---
DATE: 02/07/2017 SUBJECTIVE: Today, Ms. Rodriguez continued to be stable. She is not able to give an interval history. Per the nursing staff, she was alert and agitated this morning, and had to be 2-point restrained. OBJECTIVE: Vital Signs: Blood pressure is 129/94, pulse is 62, respirations 19, temperature 97.6 degrees. General: Ms. Rodriguez is a 61-year-old female. She is in bed, not in any distress. HEENT: Mucosa is pink and moist. Anicteric. Acyanotic. Neck: Supple. Chest: Air entry is bilaterally reduced. A few bibasilar crepitations. Cardiovascular: Regular rate and rhythm. There are no murmurs, no rubs, no gallops. Abdomen: Soft. There is a PEG tube in place. The PEG tube site looks clean. Extremities: No pedal edema. Central Nervous System: Patient is awake, nonverbal, and does not follow any commands. Makes some non comprehensive noise intermittently. LABORATORY DATA: WBC is 5.26, hemoglobin is 10.4, platelet count of 139,000. Chemistry is also reviewed, completely unremarkable. ASSESSMENT AND PLAN: 1. Hypotension on presentation is improved. We think this is likely related to sepsis. 2. Right lower lobe pneumonia. The patient had a sputum positive for Pseudomonas on previous admission. We therefore started her on antibiotics. We have started the patient on meropenem for pseudomonal coverage. 3. Gram negative kee urinary tract infection. We are pending the urine ID and sensitivity. 4. Reported sacral decubitus ulcer. Will continue dressings. 5. Protein calorie malnutrition. Patient will continue with tube feedings. 6. History of paroxysmal atrial fibrillation, currently rate controlled. 7. Issues with the PEG tube. This has been evaluated by GI. There is a plan to change the PEG tube tomorrow. 8. Clinical dehydration. Will continue with gentle IV fluids. cc: Ezekiel Rogers MD
[2017-02-07] MEDS: DESYREL GT SCH (22:20)
[2017-02-07] MEDS: LIPITOR PO SCH (22:20)
[2017-02-08] MEDS: MERREM 1 GM in NS 50 ML IV SCH ×5 (00:10→23:11)
[2017-02-08] MEDS: ATIVAN IV PRN ×4 (02:19→21:36)
[2017-02-08 06:26] LABS: MANUAL DIFF NEEDED? NO
[2017-02-08 06:43] LABS: BASO% 0.8 % (0.0-0.8); EOS# 0.21 X1000 (0.0-0.7); EOS% 3.6 % (0.0-10.0); HEMATOCRIT 30.9 % (37.0-47.0); HEMOGLOBIN 10.2 g/dL (12.0-16.0); LYMPH# 1.41 X1000 (1.2-3.4); LYMPH% 23.9 % (20.5-51.1); MCH 31.5 PG (27-31); MCV 95.4 FL (81-99); MONO# 0.66 X1000 (0.11-0.59); MONO% 11.2 % (1.7-9.3); MPV 11.8 FL (7.4-10.4); NEUT% 60.5 % (42.2-75.2); PLT 141 X1000 (130-400); RBC 3.24 XMIL (4.2-5.4)
[2017-02-08] MEDS: NS 1,000 ML IV SCH ×3 (06:58→13:31)
[2017-02-08] MEDS: PRILOSEC GT SCH (06:58)
[2017-02-08 07:09] LABS: AGAP 7; BUN 10 mg/dL (8-22); CALCIUM 8.4 mg/dL (8.8-10.2); CHLORIDE 105 mmol/L (98-107); COSMO 274; POTASSIUM 4.1 mmol/L (3.5-5.1); SODIUM 138 mmol/L (136-145); TCO2 26 mmol/L (25-35)
--- NOTE | 2017-02-08 07:13 | Diag Imaging Result Doc PS360 ---
EXAM: CHEST-PORTABLE HISTORY: dyspnea TECHNIQUE: Portable COMPARISON: 02/05/2017 FINDINGS: There are infiltrates in the right base. These are slightly more pronounced on the prior exam. Mild increased interstitial markings throughout both lungs. Heart is not enlarged. I believe there is a tiny right pleural effusion. IMPRESSION: Mild interval worsening. Electronically signed by Santhosh Diaz 02/08/2017 7:11 AM
[2017-02-08] MEDS: DEPAKENE LIQUID GT SCH ×2 (09:21→21:39)
[2017-02-08] MEDS: KLOR-CON POWDER PACKET GT SCH (09:21)
[2017-02-08] MEDS: CELEXA GT SCH (09:22)
[2017-02-08] MEDS: SANTYL OINT TOP SCH (09:22)
[2017-02-08] MEDS: SEROQUEL GT SCH (09:22)
[2017-02-08] MEDS: ASPIRIN GT SCH (09:22)
--- NOTE | 2017-02-08 14:16 | PROGRESS NOTE ---
DATE: 02/08/2017 SUBJECTIVE: The patient is not alert. I have talked with the nurse. She has a malfunctioning PEG tube, although they have been able to use it for feedings and medications. It needs to be replaced. The tip is missing. They are having to keep it clamped by a rubber-band. OBJECTIVE: Vital Signs, temperature 98.6 degrees, pulse 54, respirations 22, blood pressure 157/76. DIAGNOSTIC RESULTS: Laboratory, hematology: WBC 5.9, hemoglobin 10.2, hematocrit 30.9, MCV 95.4, platelets 141,000. Coagulation: Prothrombin time 12 and INR 1.13, PTT 30.3. Chemistry: Sodium 138, potassium 4.1, chloride 105, CO2 of 26, BUN 10, creatinine 0.4, glucose 86. ASSESSMENT AND PLAN: 1. Right lower lobe pneumonia. She is receiving antibiotics. 2. Gram-negative kee urinary tract infection. 3. Protein-calorie malnutrition, requiring tube feedings. 4. Malfunctioning percutaneous endoscopic gastrostomy tube. Continue symptomatic treatment and supportive care. We will plan to replace the percutaneous endoscopic gastrostomy tube when able according to scheduling and when we can get a consent signed by the family. The nurse was unable to get a hold of the daughter today. We will hopefully replaced the percutaneous endoscopic gastrostomy tube on Wednesday. We will continue to follow and further plans will be made as needed. I have discussed this case with Dr. Wyatt. Dictated by FRANCIE Puente for Cabrera Wyatt MD cc: FRANCIE Killian MD
--- NOTE | 2017-02-08 15:48 | PROGRESS NOTE ---
DATE: 02/08/2017 SUBJECTIVE: This morning Ms. Rodriguez continues to be relatively stable. She is nonverbal. I understand she was agitated, so she was given some sedatives. At the time of the encounter, she was just completely out of it. OBJECTIVE: Vital signs: Blood pressure is 157/74, pulse of 54, respirations 22, temperature 98.6 degrees. General: Ms. Rodriguez is a 61-year-old female. She is in bed. She did not seem to be in any remarkable distress. HEENT: Mucosa is pink and moist. Anicteric. Acyanotic. Neck: Supple. Chest: Good air entry bilaterally. A few bibasilar crepitations. Cardiovascular: Regular rate and rhythm. Abdomen: Soft. There is a PEG tube in place. Extremities: No pedal edema. NUTRITION PARTNER: Patient is extremely drowsy, continues to be nonverbal moves all extremities. She was in 2-point restraint and she had a sitter at her bedside. LABORATORY DATA: WBC is 5.90, hemoglobin is 10.2, platelet count of 141,000. Chemistry is reviewed. Sodium is 138, potassium is 4.1, chloride is 105, bicarb is 26. MEDICATIONS: 1. Aspirin 81 mg daily. 2. Atorvastatin 10 mg at bedtime. 3. Citalopram 20 mg q.a.m. 4. Lorazepam 0.5 IV q.4 p.r.n. for agitation. 5. Meropenem. 6. Omeprazole. 7. Quetiapine. 8. Normal saline at 75 mL per hour. 9. Tramadol. 10. Valproic acid 250 q.a.m. and 500 at bedtime. ASSESSMENT: 1. Hypotension on presentation, improved. We think this is related to sepsis. The patient never needed to be on pressors. She improved with adequate hydration and antibiotics. 2. Right lower lobe pneumonia. The patient had a previous sputum culture which was Pseudomonas, so we empirically are treating her with pseudomonal coverage. Today is day 3 on antibiotics. 3. Gram-negative kee urinary tract infection. We are still pending the Infectious Disease and sensitivity. We will continue with the current antibiotics. 4. Reported sacral decubitus ulcer. We will continue with wound care. 5. Protein calorie malnutrition. Patient gets tube feedings. 6. Paroxysmal atrial fibrillation. Currently rate controlled. Patient is actually not on any rate control medications; however, her pulse occasionally goes very low. We are going to keep an eye on this. 7. PEG tube dysfunction. There is a plan for the tube to be changed today. 8. Clinical dehydration, improving with gentle hydration. PLAN: So this morning, Ms. Rodriguez is clinically stable. Ms. Rodriguez got admitted on 02/05/2017 primarily because of shortness of breath and very low vitals. She is a resident of [facility]. Upon evaluation, she was found to be relatively septic and had adequate fluid resuscitation. A chest x-ray revealed right middle lobe pneumonia and patient was started on antibiotics. She was just discharged from here after 2 weeks of IV cefepime and she comes back with similar symptoms. I will continue with the current IV antibiotics. I will be pending the results of the GNR in her urine and tweak the antibiotic coverage accordingly. There is a plan for the PEG tube also to be changed. I think Ms. Rodriguez is going to be here in the hospital for a few more days. Since she is still in restraints, she needs to be 48 hours without restraint before she goes back to the senior care. cc: Ezekiel Rogers MD
[2017-02-08] MEDS: DUONEB (A & A) INH SCH (19:41)
[2017-02-08] MEDS: DESYREL GT SCH (21:38)
[2017-02-08] MEDS: LIPITOR PO SCH (21:38)
[2017-02-09] MEDS: ATIVAN IV PRN ×2 (02:47→10:25)
[2017-02-09] MEDS: ATIVAN GT PRN (05:56)
[2017-02-09] MEDS: PRILOSEC GT SCH (06:00)
[2017-02-09 06:25] LABS: MANUAL DIFF NEEDED? NO
[2017-02-09 06:35] LABS: BASO% 0.7 % (0.0-0.8); EOS# 0.21 X1000 (0.0-0.7); EOS% 3.5 % (0.0-10.0); HEMATOCRIT 31.2 % (37.0-47.0); HEMOGLOBIN 10.4 g/dL (12.0-16.0); LYMPH# 1.49 X1000 (1.2-3.4); LYMPH% 25.2 % (20.5-51.1); MCH 31.7 PG (27-31); MCHC 33.3 g/dL (33-37); MCV 95.1 FL (81-99); MONO% 11.8 % (1.7-9.3); MPV 11.7 FL (7.4-10.4); NEUT% 58.8 % (42.2-75.2); PLT 146 X1000 (130-400); RBC 3.28 XMIL (4.2-5.4)
[2017-02-09 07:01] LABS: AGAP 10; BUN 10 mg/dL (8-22); CALCIUM 8.8 mg/dL (8.8-10.2); CHLORIDE 104 mmol/L (98-107); COSMO 279; POTASSIUM 4.3 mmol/L (3.5-5.1); SODIUM 141 mmol/L (136-145); TCO2 27 mmol/L (25-35)
[2017-02-09] MEDS: DUONEB (A & A) INH SCH ×5 (08:11→20:06)
[2017-02-09] MEDS: KLOR-CON POWDER PACKET GT SCH (10:28)
[2017-02-09] MEDS: MERREM 1 GM in NS 50 ML IV SCH ×2 (10:28→18:49)
[2017-02-09] MEDS: CELEXA GT SCH (10:29)
[2017-02-09] MEDS: DEPAKENE LIQUID GT SCH ×2 (10:29→22:55)
[2017-02-09] MEDS: SEROQUEL GT SCH (10:29)
[2017-02-09] MEDS: ASPIRIN GT SCH (10:29)
[2017-02-09] MEDS: SANTYL OINT TOP SCH (10:30)
--- NOTE | 2017-02-09 14:44 | PROGRESS NOTE ---
DATE: 02/09/2017 SUBJECTIVE: The patient is resting comfortably in bed. No acute events noted overnight. OBJECTIVE: Vital Signs: Temperature 97.7 degrees, blood pressure 169/59, heart rate 52, respirations 18, O2 saturations 98% on 3 L nasal cannula. General: This is a chronically ill- appearing elderly female lying in bed in no acute distress. Head: Normocephalic, atraumatic. Heart: S1, S2. Normal. Bradycardic. Lungs: Equal air entry bilaterally. No crackles, no rales. Abdomen: Positive bowel sounds. Soft, nontender, nondistended. Extremities: No edema. No cyanosis. No calf tenderness. Neuro: The patient is nonverbal. She is able to move all 4 extremities. LABS: Reviewed. ASSESSMENT AND PLAN: 1. Pneumonia secondary to Pseudomonas. Continue with IV antibiotic therapy. 2. Urinary tract infection. The urine culture is growing gram-negative rods. Continue on the current IV antibiotic regimen. 3. Paroxysmal atrial fibrillation. The patient is actually bradycardic. Will continue to monitor this closely. 4. Malfunctioning percutaneous endoscopic gastrostomy tube. GI is following. 5. Deep vein thrombosis prophylaxis. Continue with SCDs. cc: Susy Patel MD MTDD
[2017-02-09] MEDS: DESYREL GT SCH (22:55)
[2017-02-09] MEDS: LIPITOR PO SCH (22:55)
[2017-02-10] MEDS: MERREM 1 GM in NS 50 ML IV SCH ×2 (00:11→14:40)
[2017-02-10] MEDS: ATIVAN IV PRN ×2 (03:28→12:32)
[2017-02-10] MEDS: PRILOSEC GT SCH (06:07)
[2017-02-10 06:39] LABS: HEMATOCRIT 32.7 % (37.0-47.0); HEMOGLOBIN 10.9 g/dL (12.0-16.0); MCH 32.5 PG (27-31); MCHC 33.3 g/dL (33-37); MCV 97.6 FL (81-99); MPV 11.5 FL (7.4-10.4); RBC 3.35 XMIL (4.2-5.4)
[2017-02-10 07:20] LABS: AGAP 10; BUN 9 mg/dL (8-22); CALCIUM 9.4 mg/dL (8.8-10.2); CHLORIDE 102 mmol/L (98-107); COSMO 277; POTASSIUM 4.1 mmol/L (3.5-5.1); SODIUM 140 mmol/L (136-145); TCO2 28 mmol/L (25-35)
[2017-02-10] MEDS ORDERED: ATIVAN IM ONE (07:45)
[2017-02-10] MEDS: DUONEB (A & A) INH SCH ×3 (09:19→20:13)
[2017-02-10] MEDS: ASPIRIN GT SCH (09:34)
[2017-02-10] MEDS: SANTYL OINT TOP SCH (09:35)
[2017-02-10] MEDS: SEROQUEL GT SCH (12:13)
[2017-02-10] MEDS ORDERED: XYLOCAINE-MPF 2% ONE (13:41)
[2017-02-10] MEDS ORDERED: DIPRIVAN 1% ONE (13:42)
[2017-02-10] MEDS ORDERED: VERSED ONE (13:52)
--- NOTE | 2017-02-10 14:37 | PROGRESS NOTE ---
DATE: 02/10/2017 SUBJECTIVE: The patient is resting comfortably in bed. She has periods of agitation and yelling. Right now she is calm. OBJECTIVE: Vital Signs: Temperature 98 degrees, blood pressure 143/76, heart rate 65, O2 saturations 100% on 2 L nasal cannula. General: This is an elderly female, lying in bed, in no acute distress. Heart: S1, S2. Normal. Regular rate and rhythm. Lungs: Equal air entry. No crackles, no rales. Abdomen: Positive bowel sounds. Soft, nontender, nondistended. Extremities: No edema. No cyanosis. Neurologic: The patient is confused and demented. LABS: White blood cell count 6.1, hemoglobin 10, hematocrit 32, platelets 151,000. Sodium 140, potassium 4.1, chloride 102, CO2 28, BUN 9, creatinine 0.4, glucose 83. ASSESSMENT AND PLAN: 1. Pneumonia secondary to Pseudomonas. Continue with the current antibiotic regimen. 2. Urinary tract infection secondary to Escherichia coli. Continue on IV antibiotic therapy. 3. Paroxysmal atrial fibrillation. The patient is rate controlled. 4. Malfunctioning PEG tube. The patient is scheduled for replacement of her PEG tube today. 5. Deep vein thrombosis prophylaxis. Continue with sequential compression devices. cc: Susy Patel MD
[2017-02-10] MEDS: DEPAKENE LIQUID GT SCH ×2 (14:41→20:18)
--- NOTE | 2017-02-10 15:15 | Diag Imaging Result Doc PS360 ---
EXAM: ABDOMEN FLAT/UPRIGHT HISTORY: PEG TUBE PLACEMENT TECHNIQUE: Two views, portable upright and supine COMPARISON: None. FINDINGS: No free air beneath the diaphragm. The bowel loops are not dilated. No organomegaly. There is scoliosis with degenerative spine changes. A catheter overlies the mid left abdomen. This may be within the stomach. Increased markings in the lower lungs may represent fibrosis or could represent infiltrates. IMPRESSION: There is a catheter in the mid left abdomen which may be within the stomach. Electronically signed by Santhosh Diaz 02/10/2017 3:13 PM
--- NOTE | 2017-02-10 17:59 | OPERATIVE NOTE ---
PROCEDURE DATE: 02/10/2017 PROCEDURE: Percutaneous endoscopic gastrostomy tube replacement. PREOPERATIVE DIAGNOSIS: Malfunctioning percutaneous endoscopic gastrostomy tube. POSTOP DIAGNOSIS: Malfunctioning percutaneous endoscopic gastrostomy tube. PROCEDURE: This is a 61-year-old white female who has oropharyngeal dysphagia secondary to CVA. Her PEG tube has torn up at the tip. She is here for PEG tube replacement, but since she has been very combative, PEG tube could not be placed at the bedside. The patient was brought to the OR where she was sedated as per Anesthesia. After adequate sedation the fluid from the balloon was removed from the PEG tube and the PEG tube was removed without difficulty. A new PEG 24 was reintroduced back through the old track into the stomach. The balloon was insufflated with 6 mL of fluid and a dressing was applied. At this time I applied an abdominal binder to protect her from playing with the PEG tube. IMPRESSION: Malfunctioning percutaneous endoscopic gastrostomy tube. Percutaneous endoscopic gastrostomy tube replaced. cc: MD Susy Lin MD MTDD
[2017-02-10] MEDS: ATIVAN PRN (18:43)
--- NOTE | 2017-02-10 18:54 | Diag Imaging Result Doc PS360 ---
EXAM: KUB ABDOMEN HISTORY: verify peg tube placement TECHNIQUE: Portable supine COMPARISON: Films taken at 3:05 PM FINDINGS: Contrast has been placed into the PEG tube. Contrast is present within the stomach. Contrast overlies the left side of the lower lumbar vertebra. This may be within the bowel or could be within the tract. IMPRESSION: PEG tube within the stomach. I'm unsure as to the exact location of the inferior contrast. Recommend follow-up films in one to two hours. Electronically signed by Santhosh Diaz 02/10/2017 6:51 PM
[2017-02-10] MEDS: CELEXA GT SCH (20:15)
[2017-02-10] MEDS: LIPITOR PO SCH (20:16)
[2017-02-10] MEDS: KLOR-CON POWDER PACKET GT SCH (20:16)
[2017-02-10] MEDS: DESYREL GT SCH (20:17)
[2017-02-10] MEDS ORDERED: HALDOL IM ONE (20:36)
[2017-02-10] MEDS ORDERED: BENADRYL IV ONE (20:40)
[2017-02-11] MEDS: MERREM 1 GM in NS 50 ML IV SCH ×4 (00:54→22:30)
[2017-02-11] MEDS: ATIVAN PRN ×2 (06:03→22:41)
[2017-02-11 07:13] LABS: HEMATOCRIT 33.3 % (37.0-47.0); HEMOGLOBIN 11.3 g/dL (12.0-16.0); MCH 31.7 PG (27-31); MCHC 33.9 g/dL (33-37); MCV 93.5 FL (81-99); MPV 11.6 FL (7.4-10.4); RBC 3.56 XMIL (4.2-5.4)
[2017-02-11 07:33] LABS: AGAP 13; BUN 10 mg/dL (8-22); CALCIUM 9.3 mg/dL (8.8-10.2); CHLORIDE 103 mmol/L (98-107); COSMO 279; POTASSIUM 4.8 mmol/L (3.5-5.1); SODIUM 141 mmol/L (136-145); TCO2 25 mmol/L (25-35)
[2017-02-11] MEDS: DUONEB (A & A) INH SCH ×3 (08:09→20:08)
[2017-02-11] MEDS: CELEXA GT SCH (08:29)
[2017-02-11] MEDS: PRILOSEC GT SCH (08:29)
[2017-02-11] MEDS: ASPIRIN GT SCH (08:29)
[2017-02-11] MEDS: SEROQUEL GT SCH (08:30)
[2017-02-11] MEDS: SANTYL OINT TOP SCH (08:30)
[2017-02-11] MEDS: KLOR-CON POWDER PACKET GT SCH (08:30)
[2017-02-11] MEDS: DEPAKENE LIQUID GT SCH ×2 (08:30→22:29)
--- NOTE | 2017-02-11 14:53 | PROGRESS NOTE ---
DATE: 02/11/2017 SUBJECTIVE: The patient is resting comfortably in bed. She had her PEG tube replaced yesterday. OBJECTIVE: Vital Signs: Temperature 97.5 degrees, blood pressure 165/67, heart rate 68, respirations 18, O2 saturation is 96% on 2 L nasal cannula. Intake 240 mL. Output 600 mL. General: This is a chronically ill-appearing, elderly female, lying in bed, in no acute distress. The patient is currently in wrist restraints. Heart: S1, S2. Normal. Regular rate and rhythm. Lungs: Clear to auscultation bilaterally. No wheezes. No rales. No rhonchi. Abdomen: Positive bowel sounds. Soft, nontender, nondistended. Extremities: No edema. No cyanosis. No calf tenderness. Neurologic: The patient is alert but very restless. LABS: White blood cell count 5.9, hemoglobin 11, hematocrit 33, platelets 165, 000. Sodium 141, potassium 4.8, chloride 103, CO2 25, BUN 10, creatinine 0.5, glucose 81. ASSESSMENT AND PLAN: 1. Malfunctioning percutaneous endoscopic gastrostomy tube status post percutaneous endoscopic gastrostomy tube replacement. Will consult the district recruiter to start peg tube feedings. 2. Urinary tract infection secondary to Escherichia coli. Today is day 7 of antibiotic therapy. 3. Pneumonia secondary to Pseudomonas. The patient has been on antibiotic since admission. Will order a chest x-ray to assess response to the antibiotic therapy. We will continue with Merrem for now. 4. Paroxysmal atrial fibrillation. The patient is currently rate controlled. 5. Sacral decubitus ulcer. Continue with wound care. 6. Dementia with agitation. Continue on Seroquel and valproic acid. Will need to be taken out of wrist restraints. 7. Disposition. The patient should be stable for discharge to [facility] either tomorrow or Wednesday. cc: Susy Patel MD MTDD
--- NOTE | 2017-02-11 15:31 | Diag Imaging Result Doc PS360 ---
EXAM: KUB ABDOMEN HISTORY: peg tube placement TECHNIQUE: COMPARISON: 02/10/2017 FINDINGS: Additional contrast has been placed into the gastric catheter. This contrast fills the stomach. Contrast from yesterday now lies within the colon. IMPRESSION: PEG tube lies near the antrum within the stomach. Electronically signed by Santhosh Diaz 02/11/2017 3:29 PM
[2017-02-11] MEDS: DESYREL GT SCH (22:29)
[2017-02-11] MEDS: LIPITOR PO SCH (22:30)
[2017-02-12] MEDS: ATIVAN PRN (03:03)
[2017-02-12] MEDS: MERREM 1 GM in NS 50 ML IV SCH ×3 (06:01→23:16)
[2017-02-12] MEDS: PRILOSEC GT SCH (06:01)
[2017-02-12 06:24] LABS: HEMATOCRIT 32.5 % (37.0-47.0); HEMOGLOBIN 10.8 g/dL (12.0-16.0); MCH 32.1 PG (27-31); MCHC 33.2 g/dL (33-37); MCV 96.7 FL (81-99); MPV 10.7 FL (7.4-10.4); RBC 3.36 XMIL (4.2-5.4)
[2017-02-12 06:43] LABS: AGAP 13; BUN 11 mg/dL (8-22); CALCIUM 9.3 mg/dL (8.8-10.2); CHLORIDE 102 mmol/L (98-107); COSMO 280; SODIUM 141 mmol/L (136-145); TCO2 26 mmol/L (25-35)
--- NOTE | 2017-02-12 07:38 | Diag Imaging Result Doc PS360 ---
CHEST-PORTABLE - 02/12/2017 INDICATION: pneumonia TECHNIQUE: COMPARISON: 02/08/2017 FINDINGS: The patient is heavily rotated to the right. There is improvement in the infiltrate throughout the right lung. There is new infiltrate at the left base. Stable cardiomegaly. Pulmonary congestion is improved. IMPRESSION: Improvement from prior. Electronically signed by Leo Britt 02/12/2017 7:36 AM
[2017-02-12] MEDS ORDERED: BLISTEX MEDICATED BERRY LIP BALM TOP PRN (08:59)
[2017-02-12] MEDS: SEROQUEL GT SCH (09:01)
[2017-02-12] MEDS: KLOR-CON POWDER PACKET GT SCH (09:01)
[2017-02-12] MEDS: ATIVAN GT PRN (09:01)
[2017-02-12] MEDS: ASPIRIN GT SCH (09:01)
[2017-02-12] MEDS: CELEXA GT SCH (09:01)
[2017-02-12] MEDS: DUONEB (A & A) INH SCH ×3 (09:01→21:24)
[2017-02-12] MEDS: DEPAKENE LIQUID GT SCH (09:01)
--- NOTE | 2017-02-12 10:21 | PROGRESS NOTE ---
DATE: 02/12/2017 SUBJECTIVE: This morning Ms. Rodriguez continued to be stable. No acute changes overnight. The patient had her a PEG changed 2 days ago, and seems to be tolerating her tube feedings. OBJECTIVE: Vital signs: Blood pressure is 157/67, pulse of 90, temperature is 97.8, respiration is 18. General: Ms. Rodriguez is a 61-year-old female. She is in bed, not seemingly distressed. HEENT: Mucosa is pink and moist. Anicteric. Acyanotic. Neck: Supple. Chest: Good air entry bilaterally. A few bibasilar crepitations. Cardiovascular: Regular rate and rhythm. There is no murmurs, no rubs, no gallops. Abdomen: Soft. There is a new PEG tube inserted, and there is a abdominal binder over by the PEG tube. Extremities: No pedal edema. The patient is in 2-point restraints on the upper extremities. CLIENT CUSTOMER MANAGER: Patient is awake, alert, nonverbal, but occasionally makes some non comprehensive noises. LABORATORY DATA: WBC 6.35, hemoglobin is 10.8, platelet count of 184,000. Chemistry is also reviewed completely normal. The patient has been seen by dietitian on the , and there have been some recommendations for the tube feedings which we will continue to follow. ASSESSMENT: 1. Hypotension on presentation likely related to sepsis. This has improved. Patient did not need any pressors. 2. Right lower lobe pneumonia. The patient is on meropenem because of a previous culture being positive for Pseudomonas. Today is day 6 on meropenem. Will plan to treat her for total of 7 days. 3. Extended spectrum beta-lactamase coli. The patient has been treated with meropenem. Currently, 6 days I think this is completely treated. Will go ahead and discontinue the Grant catheter. 4. Reported sacral decubitus ulcer. We will continue with wound care. 5. Protein calorie malnutrition. Tube feedings have been resumed. Dietitian has also been consulted. Will continue with her recommendations. 6. Paroxysmal atrial fibrillation. Currently rate controlled. 7. Percutaneous endoscopic gastrostomy tube dysfunction. This has been changed. Patient has been tolerating feedings through the new tube. PLAN: In general, I think Ms. Rodriguez is clinically stable. White count continues to be normal. All lab work seems stable. We will plan to continue with the current IV antibiotics for 1 more day for a total of 7 days. Continue with the tube feeding recommendations from the dietitian. Patient is still in restraints, which I understand she needs to be out of restrain for 24-48 hours before she can go back to the halfway. We are going to discontinue the Grant catheter just in case this is also contributing to her agitation and hopefully, get her calm enough to send her back to the halfway. cc: Ezekiel Rogers MD
--- NOTE | 2017-02-12 12:07 | PROGRESS NOTE ---
DATE: 02/12/2017 SUBJECTIVE: The patient had her PEG tube changed out. Per nurse, she is tolerating feedings. OBJECTIVE: Vital Signs: Temperature 97.8 degrees, pulse 64, respirations 16, blood pressure 157/69. Respiratory: Was sound crackles. Cardiovascular: Regular rate and rhythm. Abdomen: With a new PEG and abdominal binder in place. Site is clean, dry and intact. DIAGNOSTIC LABORATORY: Hematology, WBC 6.35, hemoglobin 10.9, hematocrit 32.5, MCV 96.7. Chemistry: Sodium 141, potassium 4.0, chloride 102, CO2 26, BUN 11, creatinine 0.5, glucose 86. ASSESSMENT AND PLAN: 1. Right lower lobe pneumonia. She is receiving antibiotics. 2. Protein-calorie malnutrition. Her PEG tube had malfunctioned and it was replaced. Continue tube feedings. Nurse states she is tolerating her tube feedings well. We will continue to be available if needed. Dictated by FRANCIE Puente for Cabrera Wyatt MD cc: FRANCIE Killian MD Raphael K. Quansah, MD
[2017-02-12] MEDS: SANTYL OINT TOP SCH (16:34)
[2017-02-13] MEDS: DEPAKENE LIQUID GT SCH ×3 (00:16→22:37)
[2017-02-13] MEDS: DESYREL GT SCH ×2 (00:16→22:38)
[2017-02-13] MEDS: LIPITOR PO SCH ×2 (00:16→22:38)
[2017-02-13] MEDS: ATIVAN PRN ×2 (01:10→07:48)
[2017-02-13] MEDS: ULTRAM PO PRN ×2 (03:32→22:38)
[2017-02-13] MEDS: ATIVAN GT PRN ×2 (03:33→22:38)
[2017-02-13] MEDS: PRILOSEC GT SCH (06:26)
[2017-02-13] MEDS: MERREM 1 GM in NS 50 ML IV SCH ×2 (06:26→14:31)
[2017-02-13 06:52] LABS: AGAP 13; ALBUMIN 3.4 g/dL (3.5-5.0); ALKALINE PHOSPHATASE 76 U/L (32-104); BUN 9 mg/dL (8-22); CALCIUM 9.3 mg/dL (8.8-10.2); CHLORIDE 102 mmol/L (98-107); COSMO 275; GOT 18 U/L (10-30); GPT 16 U/L (10-36); MAGNESIUM 1.8 mg/dL (1.5-2.7); POTASSIUM 3.9 mmol/L (3.5-5.1); SODIUM 139 mmol/L (136-145); TCO2 24 mmol/L (25-35); TOTAL PROTEIN 6.3 g/dL (6.3-8.3)
[2017-02-13] MEDS: KLOR-CON POWDER PACKET GT SCH (08:04)
[2017-02-13] MEDS: ASPIRIN GT SCH (08:05)
[2017-02-13] MEDS: CELEXA GT SCH (08:05)
[2017-02-13] MEDS: SEROQUEL GT SCH (08:05)
[2017-02-13] MEDS: SANTYL OINT TOP SCH (08:06)
[2017-02-13] MEDS: DUONEB (A & A) INH SCH ×3 (08:17→21:00)
--- NOTE | 2017-02-13 15:56 | PROGRESS NOTE ---
DATE: 02/13/2017 SUBJECTIVE: This morning Ms. Rodriguez continues to be pretty much the same. No changes overnight. She is still in 2-point restraint. OBJECTIVE: Vital signs: Blood pressure is 173/80, pulse of 95, respiration is 20, temperature 96.6 degrees. General: Ms. Rodriguez is a 61-year-old female. She is in bed, not seemingly distressed. HEENT: Mucosa is pink and moist. Anicteric. Acyanotic. Neck: Supple. Chest: Air entry is bilaterally reduced. There are still bibasilar crepitations. Cardiovascular: Regular rate and rhythm. No murmurs, no rubs, no gallops. Abdomen: Soft. The PEG tube is in place. The binders over the PEG tube. Extremities: No pedal edema. FIELD CROP GROWER: Patient is drowsy but easily arousable, does not communicate. LABORATORY DATA: Chemistry is reviewed completely normal. ASSESSMENT: 1. Hypotension on presentation due to sepsis improved. 2. Right lower lobe pneumonia. Patient is on meropenem, today is the 7th day of therapy, will discontinue it. 3. Extended spectrum beta-lactamase urinary tract infection. Patient will finish treatment today which will also be 7 days. 4. Reported sacral decubitus ulcer. Will continue would wound care. 5. Protein calorie malnutrition. Tube feedings ongoing. 6. Paroxysmal atrial fibrillation currently controlled. 7. Percutaneous endoscopic gastrostomy tube dysfunction status post percutaneous endoscopic gastrostomy tube removal and exchange. Patient is tolerating feeding with the new PEG tube. So today at the Ms. Rodriguez stable. She has had 7 days of IV antibiotics. We will discontinue this for today and will be pending her placement in a rehab maybe Wednesday, will try and see we can take her out of the restraints today. cc: Ezekiel Rogers MD MTDD
[2017-02-14] MEDS: ZYPREXA IM PRN (03:36)
[2017-02-14] MEDS: PRILOSEC GT SCH (06:41)
[2017-02-14] MEDS: DUONEB (A & A) INH SCH ×3 (07:25→22:05)
[2017-02-14] MEDS ORDERED: HALDOL IV ONE ×2 (07:32→08:47)
[2017-02-14] MEDS: KLOR-CON POWDER PACKET GT SCH (08:14)
[2017-02-14] MEDS: SANTYL OINT TOP SCH (08:14)
[2017-02-14] MEDS: DEPAKENE LIQUID GT SCH ×2 (08:14→20:14)
[2017-02-14] MEDS: SEROQUEL GT SCH (08:14)
[2017-02-14] MEDS: CELEXA GT SCH (08:14)
[2017-02-14] MEDS: ASPIRIN GT SCH (08:14)
--- NOTE | 2017-02-14 15:45 | PROGRESS NOTE ---
DATE: 02/14/2017 SUBJECTIVE: This morning, this patient is having some agitation, and we treated with Haldol. At the moment of my physical exam, she was resting comfortably in bed, and she was somnolent. She is not following commands and/or answering any of my questions. She is still in 2-point restraints. OBJECTIVE: Vital Signs: Temperature 98.1 degrees, pulse 56, respiratory rate 18, blood pressure 154/71, oxygen saturation 97% on 2 L of nasal cannula. HEENT: Head normocephalic. No trauma. PERRLA. Neck: Supple. No JVD. No masses. Central trachea. Chest: Decreased breath sounds globally, with bibasilar crepitation and right lower thoracic area rhonchi. Abdomen: Soft, nontender, nondistended. PEG tube in place. Extremities: No edema. No clubbing. No cyanosis. She has some redness at the level of the right hand, apparently because she has been pulling the restraints, and she is hurting herself. Neurological: This patient is sleepy, but arousable. She is not following commands. She has been agitated. She does not communicate. LABORATORY STUDIES: Sodium 139, potassium 3.9, chloride 102, bicarbonate 24, BUN 9, creatinine 0.5, glucose 80, calcium 3.4, magnesium 1.8. ASSESSMENT AND PLAN: 1. Sepsis on presentation, improved. 2. Right lower lobe pneumonia. This patient was on meropenem, and it has been already stopped yesterday. 3. Extended spectrum beta lactamase urinary tract infection. The patient has been treated for 7 days with meropenem, and has been stopped already. 4. Reported sacral decubitus ulcer. We will continue with wound care. 5. Protein calorie malnutrition. Continue with tube feedings. 6. Paroxysmal atrial fibrillation. Rate controlled. 7. PEG tube dysfunction, status post PEG tube removal and exchange. The patient is tolerating feeding tubes with a new PEG tube. 8. Disposition: This patient has been already treated. She presented with right lower pneumonia and extended spectrum beta lactamase urinary tract infection. She received meropenem for 7 days, and she is still having episodes of agitation. She is still on restraints. We need to keep this patient off restraints for at least 48 hours to be able to send her back to her facility. cc: MD Ezekiel Casiano MD
[2017-02-14] MEDS: DESYREL GT SCH (20:14)
[2017-02-14] MEDS: LIPITOR PO SCH (20:14)
[2017-02-15] MEDS: HALDOL IV PRN (06:48)
[2017-02-15] MEDS: DEPAKENE LIQUID GT SCH ×2 (08:00→22:51)
[2017-02-15] MEDS: KLOR-CON POWDER PACKET GT SCH (08:00)
[2017-02-15] MEDS: ASPIRIN GT SCH (08:01)
[2017-02-15] MEDS: ATIVAN GT PRN ×2 (08:01→22:52)
[2017-02-15] MEDS: CELEXA GT SCH (08:01)
[2017-02-15] MEDS: PRILOSEC GT SCH (08:01)
[2017-02-15] MEDS: SEROQUEL GT SCH (08:01)
[2017-02-15] MEDS: DUONEB (A & A) INH SCH ×3 (08:33→21:55)
--- NOTE | 2017-02-15 14:26 | PROGRESS NOTE ---
DATE: 02/15/2017 SUBJECTIVE: The patient is resting. I did not disturb her. Per nurse, she is tolerating bolus feedings without difficulty. OBJECTIVE: Vital Signs: Temperature 97.8 degrees, pulse 60, respirations 14, blood pressure 153/53. ASSESSMENT AND PLAN: 1. Right lower lobe pneumonia. 2. Sepsis. 3. Urinary tract infection. 4. Protein-calorie malnutrition. Her PEG tube was replaced. She is receiving bolus feedings without difficulty. 5. Percutaneous endoscopic gastrostomy tube dysfunction. Her PEG tube was replaced. She is tolerating feedings per bolus without difficulty. Continue current management. Dr. Wyatt will be available as needed. Please reconsult GI if needed. Dictated by FRANCIE Puente for Cabrera Wyatt MD cc: FRANCIE Killian MD Raphael K. Quansah, MD
--- NOTE | 2017-02-15 14:44 | PROGRESS NOTE ---
DATE: 02/15/2017 SUBJECTIVE: The patient has no focal complaints. OBJECTIVE: Vital signs: Blood pressure 153/53, heart rate 60, respiratory rate 14, temperature 97.8 degrees, 94% on 2 L. Cardiovascular: Regular rate and rhythm. Pulmonary: Bilateral breath sounds. Clear to auscultation. Gastrointestinal: Soft, nontender, nondistended. Bowel sounds were positive. Extremities: No clubbing or cyanosis. Lymphatics: No peripheral edema. Neurological: Nonfocal. LABORATORY DATA: Basic was normal. PROBLEM LIST: 1. Extended spectrum beta lactamase urinary tract infection. I think she has completed her course of Merrem. 2. Right lower lobe pneumonia. Again, clinically appears improved. 3. Sacral decubitus ulcer. We will continue wound care. 4. Severe protein-calorie malnutrition. She is currently on tube feeds. 5. Paroxysmal atrial fibrillation. She is not really on any rate-limiting medications. She is not on any anticoagulants, I guess because of her PEG tube. She is rate-controlled. DISPOSITION: She needs to be out of restraints for 48 hours. So, hopefully, that will happen tomorrow. We will continue to follow. I am going to go up on her Depakote just to see if we can try to afford a little bit better control on her mental status. cc: MD Ezekiel Dash MD
[2017-02-15] MEDS: SANTYL OINT TOP SCH (17:54)
[2017-02-15] MEDS: LOVENOX SUBQ SCH (17:55)
[2017-02-15] MEDS: DESYREL GT SCH (22:52)
[2017-02-15] MEDS: LIPITOR PO SCH (22:52)
[2017-02-16] MEDS: HALDOL IV PRN ×2 (02:54→06:44)
[2017-02-16] MEDS: ZYPREXA IM PRN (03:39)
[2017-02-16] MEDS ORDERED: STERILE WATER INJ. ONE (03:41)
[2017-02-16 06:30] LABS: HEMATOCRIT 33.9 % (37.0-47.0); HEMOGLOBIN 11.4 g/dL (12.0-16.0); MCH 32.6 PG (27-31); MCHC 33.6 g/dL (33-37); MCV 96.9 FL (81-99); MPV 11.1 FL (7.4-10.4); RBC 3.5 XMIL (4.2-5.4)
[2017-02-16 06:45] LABS: AGAP 10; BUN 15 mg/dL (8-22); CALCIUM 9.3 mg/dL (8.8-10.2); CHLORIDE 101 mmol/L (98-107); COSMO 277; POTASSIUM 4.8 mmol/L (3.5-5.1); SODIUM 139 mmol/L (136-145); TCO2 28 mmol/L (25-35)
[2017-02-16] MEDS: DEPAKENE LIQUID GT SCH ×2 (08:09→23:21)
[2017-02-16] MEDS: PRILOSEC GT SCH (08:10)
[2017-02-16] MEDS: KLOR-CON POWDER PACKET GT SCH (08:10)
[2017-02-16] MEDS: SEROQUEL GT SCH (08:10)
[2017-02-16] MEDS: ATIVAN GT PRN ×3 (08:10→23:22)
[2017-02-16] MEDS: ASPIRIN GT SCH (08:10)
[2017-02-16] MEDS: SANTYL OINT TOP SCH (08:10)
[2017-02-16] MEDS: CELEXA GT SCH (08:10)
[2017-02-16] MEDS: DUONEB (A & A) INH SCH ×3 (09:43→20:05)
--- NOTE | 2017-02-16 14:25 | PROGRESS NOTE ---
DATE: 02/16/2017 SUBJECTIVE: The patient is resting comfortably in bed. She is out of wrist restraints. OBJECTIVE: Vital Signs: Temperature 98 degrees, blood pressure 159/82, heart rate 79, respirations 19, O2 saturations 100% on 2 L nasal cannula. General: This is an elderly female, lying in bed, in no acute distress. Heart: S1, S2. Normal. Lungs: Equal air entry bilaterally. No crackles, no rales. Abdomen: Positive bowel sounds. Soft, nontender, nondistended. Extremities: No edema. No cyanosis. No calf tenderness. Neurologic: The patient is demented but is able to move all 4 extremities and walk. LABS: Reviewed. ASSESSMENT AND PLAN: 1. Urinary tract infection secondary to extended-spectrum beta-lactamase. Resolved. The patient completed a course of Merrem. 2. Right lower lobe pneumonia. Resolved. 3. Sacral decubitus ulcer. Continue with wound care. 4. Status post PEG tube replacement. Stable. 5. Severe protein calorie malnutrition. Continue on tube feeds. 6. Paroxysmal atrial fibrillation. The patient is rate controlled. cc: MD Ezekiel Dee MD
[2017-02-16] MEDS: LOVENOX SUBQ SCH (16:49)
[2017-02-16] MEDS: DESYREL GT SCH (23:22)
[2017-02-16] MEDS: LIPITOR PO SCH (23:22)
[2017-02-17] MEDS: HALDOL IV PRN (04:30)
[2017-02-17] MEDS: ATIVAN GT PRN (05:42)
[2017-02-17] MEDS: PRILOSEC GT SCH ×2 (05:42→06:18)
[2017-02-17] MEDS: DUONEB (A & A) INH SCH ×2 (09:05→15:29)
[2017-02-17] MEDS: SEROQUEL GT SCH (09:42)
[2017-02-17] MEDS: ASPIRIN GT SCH (09:42)
[2017-02-17] MEDS: DEPAKENE LIQUID GT SCH (09:42)
[2017-02-17] MEDS: CELEXA GT SCH (09:42)
[2017-02-17] MEDS: SANTYL OINT TOP SCH (09:42)
--- NOTE | 2017-02-17 14:49 | DISCHARGE SUMMARY ---
ADMISSION DATE: 02/05/2017 DISCHARGE DATE: 02/16/2017 CONSULTATIONS: Cabrera Wyatt MD of Gastroenterology PERTINENT PROCEDURES: 1. Chest x-ray showed right middle lobe pneumonia. 2. Abdominal x-ray showed catheter in the mid left abdomen which may be within the stomach. 3. PEG tube placement for malfunctioning PEG tube performed by Dr. Wyatt. 4. Abdominal x-ray shows PEG tube within the stomach. Recommend followup film in 1-2 hours. 5. Repeat abdominal x-ray showed PEG tube lines near the antrum within the stomach. 6. Chest x-ray showed improvement in the infiltrate throughout the right lung. There is a new infiltrate at the left base. Stable cardiomegaly. Pulmonary congestion has improved. DISCHARGE DIAGNOSES: 1. Urinary tract infection secondary to extended-spectrum beta-lactamase (ESBL) 2. Right lobe pneumonia 3. Sacral decubitus ulcer 4. Status post PEG tube placement for replacement for malfunctioning tube. 5. Severe protein calorie malnutrition 6. Paroxysmal atrial fibrillation 7. Dementia with agitation. 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 Discharged to [facility] correction. Did rehab on the . She was seen in the emergency room and discharged on 02/01/2017 and sent back to [facility] for low heart rate and low blood pressure. Initially the patient was admitted to the hospitalist service. She was nonverbal and unable to really get any historical elements from her, only from her old medical records. From those old notes, she was a former abuser of alcohol and cigarettes. She is a resident of [facility] and a FULL CODE. She was also noted to have a sacral decubitus as described on her correction paperwork. There were some small skin tears of the dorsum of her right hand. She would open her eyes and shout to certain stimuli, but no real meaningful interaction. LABORATORY/DIAGNOSTIC DATA from the ED showed White count of 5, hemoglobin 9. Serial electrolytes were grossly normal. CK 178, CK MB 10.02, troponin negative. Urinalysis showed large leukocytosis with 10-20 and 4+ bacteria. Chest x-ray revealed a right middle lobe pneumonia for which the patient was admitted and started on IV antibiotics and IV fluids as well as her UTI and wound care for her sacral decubitus. She did become agitated and had to be put in 2 point restraints. Her hypotension resolved. Her sputum was positive for Pseudomonas as on previous admission. Antibiotics were switched to meropenem. She was continued on her tube feedings ; however, never having issues with her PEG tube, GI was consulted to evaluate. She had her PEG replaced on 02/10/[address] Wyatt. The patient was in and out of wrist restraints due to dementia with agitation. She was continued on her Seroquel and valproic acid. She was tolerating her tube feeds. She completed her full course of IV antibiotics while in the hospital. She was able to come out of her restraints for greater than 48 hours and remained calm. They did increase her Depakote and she was appropriate for discharge to [facility] today. VITAL SIGNS: at time of discharge, temperature is 98.9 degrees, heart rate 57, respirations 17, blood pressure is 143/84, O2 is 97% on room air. DISCHARGE DIET: Jevity 1.5 bolus 240 mL x3 feedings per day with 100 mL flush q.8 hours. Recommend to consider increasing 2 feeds of Jevity 1.5 bolus 240 mL x3 plus 120 mL x1 per day with 140 mL q.2 hours with flush after each feeding. Continue Álvaro b.i.d. to provide additional protein for wound healing. DISCHARGE MEDICATIONS: Please see MAR. FOLLOWUP: She is being discharged back to [facility]. She will finish her full course of IV antibiotics. She can return to the ED for any worsening of symptoms. Dictated by FRANCIE Go for Susy Patel MD cc: MD Ezekiel Dee MD MTDD
[2017-02-17 15:38] VITALS: BP 146/50
[2017-02-17] MEDS: LOVENOX SUBQ SCH (16:02)
== END 2017-02-17 15:51 ==
LOC: ED 12:56 → SUATTDRO 20:47 → 3N 20:47
PROVIDERS: ADMIT Internal Medicine; ATTEND Internal Medicine